=== PATIENT | female | born 1970 | race Caucasian/White ===

== ENCOUNTER → 2016-11-19 | Outpatient (CLI) | payer BC ==
--- NOTE | 2016-11-20 13:01 | EST ---
DATE OF SERVICE: 11/19/2016 AGE: 46Y SEX: F HT: 65 WT: 212 lbs. Protocol Trino: X Other: Stage: III Dur. of Exercise: 9 minutes *Heart Rate Blood Pressure *Rest: 91 Rest: 135/87 * *Max. Achieved: 147 Maximum BP: 192/85 85% PMHR: 146 100% PMHR: 172 *METS: 9.5 INDICATIONS: Chest pain. MEDICATIONS: Enalapril, atorvastatin, metformin, aspirin, Cymbalta. Patient was exercised for a total period of 9 minutes. A peak heart rate of 147 was achieved. Maximum blood pressure of 192/85 mmHg was noted. Resting EKG shows normal sinus rhythm with normal OK interval and QRS duration and normal ST-T waves. No ST segment depression suggestive of ischemia was noted. The patient did not complain of any chest pain during the test. FINAL IMPRESSION: 1. This stress test is not suggestive of ischemia. 2. Patient's exercise tolerance is normal. 3. The patient did not complain of any anginal pain during the test.
== END | disposition home or self-care (01) ==
LOC: RADNMMAIN 10:56
PROVIDERS: ATTEND Family Medicine
DX: R07.89 Other chest pain (principal)
CPT/HCPCS: 93017

== ENCOUNTER → 2018-06-28 | Outpatient (CLI) | payer BC ==
--- NOTE | 2018-06-30 08:21 | MM ---
Reason for exam: screening (asymptomatic). Last mammogram was performed 1 year ago. History: Patient had first child at age 29. Family history of breast cancer in paternal grandmother at age 70. Took hormonal contraceptives for 5 years. Physical Findings: A clinical breast exam by your physician is recommended on an annual basis and results should be correlated with mammographic findings. MG 3D Screening Mammo W/Cad Bilateral CC and MLO view(s) were taken. Prior study comparison: June 18, 2017, mammogram, performed at [facility]. February 13, 2016, mammogram, performed at [facility]. The breast tissue is heterogeneously dense. This may lower the sensitivity of mammography. Stable small group of calcifications on each site. No significant changes when compared with prior studies. ASSESSMENT: Negative, BI-RAD 1 RECOMMENDATION: Routine screening mammogram of both breasts in 1 year. Patient should continue monthly self breast exams. A negative report should not preclude additional follow up of suspicious palpable abnormalities.
== END | disposition home or self-care (01) ==
LOC: RADMAMWWP 11:49
PROVIDERS: ATTEND Family Medicine
DX: Z12.31 Encounter for screening mammogram for malignant neoplasm of breast (principal)
CPT/HCPCS: 77063; 77067

== ENCOUNTER 2018-08-10 07:32 | Day surgery (SDC) | payer BC ==
[2018-08-05 11:46] VITALS: BMI 35.9
[~2018-08-10 07:32] MED LIST: LACTATED RINGERS 1,000 ML IV SCH; LIDOCAINE 1% 20 ML VIAL (10MG/ML) FOR IV START INTRADERMA PRN
[2018-08-10 08:08] VITALS: TEMP 98
[2018-08-10 08:09] LABS: Glucose,Whole Blood 113 mg/dL (75-99)
[2018-08-10] MEDS ORDERED: LIDOCAINE 1% INJ 10MG/ML (20 ML MDV) ONE (08:43)
[2018-08-10] MEDS ORDERED: PROPOFOL 10 MG/ML 20 ML VIAL IV ONE (08:43)
--- NOTE | 2018-08-10 08:49 | P.GSHP ---
History of Present Illness H&P Date: 08/10/18 CHIEF COMPLAINT: GERD and colon screen HISTORY OF PRESENT ILLNESS: The patient is a 48-year-old female who presents with gastroesophageal reflux disease and need for colon screen. Upper and lower endoscopy were offered for further evaluation and management. PAST MEDICAL HISTORY: Please see list. PAST SURGICAL HISTORY: Please see list. MEDICATIONS: Please see list. ALLERGIES: Please see list. SOCIAL HISTORY: No illicit drug use FAMILY HISTORY: No reports of Crohn disease or ulcerative colitis. REVIEW OF ORGAN SYSTEMS: CONSTITUTIONAL: No reports of fevers or chills. GI: Denies any blood in stools or constipation. PHYSICAL EXAM: VITAL SIGNS: Stable GENERAL: Well-developed pleasant in no acute distress. HEENT: No scleral icterus. Extraocular movements grossly intact. Moist buccal mucosa. NECK: Supple without lymphadenopathy. CHEST: Unlabored respirations. Equal bilateral excursions. CARDIOVASCULAR: Regular rate and rhythm. Distal 2+ pulses. ABDOMEN: Soft, nondistended. MUSCULOSKELETAL: No clubbing, cyanosis, or edema. ASSESSMENT: 1. Gastroesophageal reflux disease 2. Colon screen. PLAN: 1. Recommend proceeding with an upper and lower endoscopy Past Medical History Past Medical History: Chest Pain / Angina, Diabetes Mellitus, GERD/Reflux, Hyperlipidemia, Hypertension Additional Past Medical History / Comment(s): TMJ, "pre-diabetes", thyroid nodule History of Any Multi-Drug Resistant Organisms: None Reported Past Surgical History: Bladder Surgery, Hysterectomy, Orthopedic Surgery, Tubal Ligation Additional Past Surgical History / Comment(s): rt. oophorectomy, ORIF rt ankle Past Anesthesia/Blood Transfusion Reactions: Previous Problems w/ Anesthesia Additional Past Anesthesia/Blood Transfusion Reaction / Comment(s): "hard time waking up" Past Psychological History: Anxiety, Depression Smoking Status: Never smoker Past Alcohol Use History: Occasional Past Drug Use History: Marijuana - Past Family History Father Family Medical History: Cancer Sister(s) Family Medical History: Cancer Mother Family Medical History: No Reported History Medications and Allergies Home Medications Medication Instructions Recorded Confirmed Type Aspirin [Adult Low Dose Aspirin EC] 81 mg PO DAILY 08/05/18 08/09/18 History Calcium/Magnesium/Zinc 1 each PO DAILY 08/05/18 08/09/18 History [Qsxbmch-Itwgjbogn-Qnoh Tablet] DULoxetine HCL [Cymbalta] 60 mg PO HS 08/05/18 08/09/18 History Enalapril [Vasotec] 20 mg PO DAILY 08/05/18 08/10/18 History Ibuprofen 600 mg PO DIRECTED PRN 08/05/18 08/09/18 History Metaxalone [Skelaxin] 800 mg PO TID PRN 08/05/18 08/09/18 History Multivitamins, Thera [Multivitamin 1 tab PO DAILY 08/05/18 08/09/18 History (formulary)] Ubidecarenone [Co Q-10] 200 mg PO QAM 08/05/18 08/09/18 History amLODIPine [Norvasc] 10 mg PO HS 08/05/18 08/09/18 History metFORMIN HCL ER [Glucophage Xr] 500 mg PO PC-SUPPER 08/05/18 08/09/18 History Allergies Allergy/AdvReac Type Severity Reaction Status Date / Time No Known Allergies Allergy Verified 08/10/18 08:07 Surgical - Exam Vital Signs Temp Pulse Resp BP Pulse Ox 98.0 F 83 16 161/98 97 08/10/18 08:07 08/10/18 08:07 08/10/18 08:07 08/10/18 08:07 08/10/18 08:07 Results - Labs Abnormal Lab Results - Last 24 Hours (Table) 08/10/18 Range/Units 08:04 POC Glucose (mg/dL) 113 H (75-99) mg/dL
--- NOTE | 2018-08-10 08:56 | P.PCN ---
Date of Procedure: 08/10/18 Description of Procedure: PREOPERATIVE DIAGNOSIS: Gastroesophageal reflux disease. POSTOPERATIVE DIAGNOSIS: Gastritis. Gastroesophageal reflux disease. Duodenitis OPERATION: Esophagogastroduodenoscopy with biopsies along antrum and duodenum SURGEON: Galina Olsen MD ANESTHESIA: MAC. INDICATIONS: The patient is a 48-year-old female who presents with a history of reflux disease. Benefits and risks of the procedure were described. Informed consent was obtained. DESCRIPTION: The patient was brought into the endoscopy suite and laid in the left lateral decubitus position. An Olympus gastroscope was passed along the posterior oropharynx down to the distal esophagus where the squamocolumnar junction was encountered at 40 cm from the incisors. The stomach was entered and no bile reflux was found. Additional findings are listed below. Biopsies with cold forceps were obtained of the antrum. The first through third portion of the duodenum was examined and remarkable for mild duodenitis. Retroflexion of the scope confirmed Hill grade 2 lower esophageal valve. The squamocolumnar junction demonstrated LA grade A erosive esophagitis. The stomach was desufflated. The patient tolerated the procedure well. FINDINGS: Squamocolumnar junction 40 cm from the incisors. Diaphragmatic hiatus at 40 cm. Hill grade 2 lower esophageal valve. LA grade B erosive esophagitis. Active duodenitis. Chronic gastritis RECOMMENDATIONS: Upper endoscopy as needed.
--- NOTE | 2018-08-10 09:05 | P.PCN ---
Date of Procedure: 08/10/18 Description of Procedure: PREOPERATIVE DIAGNOSIS: Colonoscopy screening. POSTOPERATIVE DIAGNOSIS: Colonoscopy screening. OPERATION: Colonoscopy to the ileocecal valve and appendiceal orifice. SURGEON: Galina Olsen MD. ANESTHESIA: MAC. INDICATIONS: The patient is a 48-year-old female who presents for colonoscopy screening. Benefits and risks were described and informed consent was obtained. DESCRIPTION OF PROCEDURE: The patient had undergone Gatorade, MiraLAX and Dulcolax prep. She had been brought into the operating room and laid in the left lateral decubitus position. After adequate intravenous sedation, the rectum was examined with 2% lidocaine jelly. No external hemorrhoids were encountered. The rectal tone was within normal limits. No lesions were palpated in the rectal vault. An Olympus colonoscope was advanced until the ileocecal valve and appendiceal orifice were clearly viewed. The prep was excellent with clear visualization of the mucosal folds. The scope was removed with visualization of each mucosal fold. No scattered diverticulosis was encountered. No colonic polyps were found. No evidence of focal colitis was found. Retroflexion of the scope demonstrated no internal hemorrhoids. The colon was desufflated. The patient had tolerated the procedure well. Withdrawal time was over 6 minutes. FINDINGS: No internal hemorrhoids No sigmoid diverticulosis No external prolapsed hemorrhoids. No arteriovenous malformations. No adenomatous polyps. No focal colitis. RECOMMENDATIONS: Lower endoscopy every in 10 years, 2027 Plan - Discharge Summary New Discharge Prescriptions: No Action Ubidecarenone [Co Q-10] 200 mg PO QAM Calcium/Magnesium/Zinc [Jjbddpb-Sziyhwblr-Gsbx Tablet] 1 each PO DAILY metFORMIN HCL ER [Glucophage Xr] 500 mg PO PC-SUPPER amLODIPine [Norvasc] 10 mg PO HS Multivitamins, Thera [Multivitamin (formulary)] 1 tab PO DAILY DULoxetine HCL [Cymbalta] 60 mg PO HS Enalapril [Vasotec] 20 mg PO DAILY Aspirin [Adult Low Dose Aspirin EC] 81 mg PO DAILY Ibuprofen 600 mg PO DIRECTED PRN PRN Reason: Pain Metaxalone [Skelaxin] 800 mg PO TID PRN PRN Reason: TMJ Discharge Medication List Aspirin [Adult Low Dose Aspirin EC] 81 mg PO DAILY 08/05/18 [History] Calcium/Magnesium/Zinc [Mdgehcs-Ybhmocwrt-Xcpy Tablet] 1 each PO DAILY 08/05/18 [History] DULoxetine HCL [Cymbalta] 60 mg PO HS 08/05/18 [History] Enalapril [Vasotec] 20 mg PO DAILY 08/05/18 [History] Ibuprofen 600 mg PO DIRECTED PRN 08/05/18 [History] Metaxalone [Skelaxin] 800 mg PO TID PRN 08/05/18 [History] Multivitamins, Thera [Multivitamin (formulary)] 1 tab PO DAILY 08/05/18 [History ] Ubidecarenone [Co Q-10] 200 mg PO QAM 08/05/18 [History] amLODIPine [Norvasc] 10 mg PO HS 08/05/18 [History] metFORMIN HCL ER [Glucophage Xr] 500 mg PO PC-SUPPER 08/05/18 [History] Follow up Appointment(s)/Referral(s): Galina Olsen MD [STAFF PHYSICIAN] - 08/30/18 Patient Instructions/Handouts: Duodenitis (DC) Discharge Disposition: HOME SELF-CARE
[2018-08-10 09:43] VITALS: BP 135/88; PULSE 77; RESP 15
== END 2018-08-10 10:05 | disposition home or self-care (01) ==
LOC: ORWHC2ENDO 07:32
PROVIDERS: ATTEND Surgery Plastic and Reconstructive Surgery
DX: Z12.11 Encounter for screening for malignant neoplasm of colon (principal); K29.50 Unspecified chronic gastritis without bleeding; K29.80 Duodenitis without bleeding; K22.10 Ulcer of esophagus without bleeding; K21.9 Gastro-esophageal reflux disease without esophagitis; E11.9 Type 2 diabetes mellitus without complications; Z79.84 Long term (current) use of oral hypoglycemic drugs; E78.5 Hyperlipidemia, unspecified; I10 Essential (primary) hypertension; E04.1 Nontoxic single thyroid nodule; F41.9 Anxiety disorder, unspecified; F39 Unspecified mood [affective] disorder; Z79.899 Other long term (current) drug therapy
CPT/HCPCS: 88305; 43239; J2001; J2704; G0121; 45378

== ENCOUNTER 2018-08-19 09:26 | Day surgery (SDC) | payer BC ==
[2018-08-19] MEDS ORDERED: ALPRAZolam 0.5 MG TAB PO STA (09:47)
[2018-08-19 09:56] VITALS: RESP 16; TEMP 97.7
[2018-08-19 10:54] VITALS: BP 140/87; PULSE 78
--- NOTE | 2018-08-19 12:58 | US ---
EXAMINATION TYPE: US FNA thyroid DATE OF EXAM: 08/19/2018 COMPARISON: NONE HISTORY: Thyroid nodule, E04.1 Maximal barrier technique was utilized. Ultrasound using sterile technique. The skin overlying the no dule was localized with ultrasound and the overlying skin prepped and draped. Lidocaine used for loca l anesthesia. 4 passes with a 25-gauge needle were made into the left lobe thyroid nodule under ultra sound guidance. Aspirate specimen submitted to cytology. Following the procedure hemostasis achieved. No immediate complication. Clear fluid was aspirated from the focus. IMPRESSION: Status post ultrasound-guided fine-needle aspiration of thyroid nodule, pathology pending .
== END 2018-08-19 11:00 | disposition home or self-care (01) ==
LOC: RADPROMAIN 09:26
PROVIDERS: ATTEND Surgery Plastic and Reconstructive Surgery
DX: E04.1 Nontoxic single thyroid nodule (principal)
CPT/HCPCS: 10022; 76942; 88173; 88305

== ENCOUNTER 2018-11-30 10:51 | Observation (INO) | payer BC ==
[2018-11-30] MEDS ORDERED: hydrALAZINE HCL 20 MG/ML 1 ML VIAL IVP STA ×2 (11:28→14:36)
[2018-11-30] MEDS ORDERED: SODIUM CHLORIDE 0.9% 1,000 ML IV STA ×2 (11:28)
[2018-11-30] MEDS ORDERED: ASPIRIN 81 MG PO STA (11:28)
[2018-11-30] MEDS ORDERED: KETOROLAC 30 MG/ML 1 ML VIAL IVP STA (11:29)
--- NOTE | 2018-11-30 11:50 | ED ---
Chest Pain HPI <Benjamin Mcadams - Last Filed: 11/30/18 14:16> - General Source: patient, RN notes reviewed, old records reviewed Mode of arrival: ambulatory Limitations: no limitations <Haleigh Calhoun - Last Filed: 11/30/18 14:38> - General Chief Complaint: Chest Pain Stated Complaint: Headache, chest pain Time Seen by Provider: 11/30/18 11:09 - History of Present Illness Initial Comments: Patient is a 48-year-old female presents emergency department today with complaints of chest pain for the past day. Patient states she's also has a headache complaining of sinus pressure. She's had intermittent chills. Patient states she's been having symptoms for the past 2 days. Patient states that she has the chest pain radiating towards her back. She denies any nausea or vomiting. has history of hypertension, hyperlipidemia and prediabetes (Haleigh Calhoun) - Related Data Home Medications Medication Instructions Recorded Confirmed Aspirin [Adult Low Dose Aspirin EC] 81 mg PO DAILY 08/05/18 11/30/18 Calcium/Magnesium/Zinc 1 each PO DAILY 08/05/18 11/30/18 [Tpamygr-Zpnvhnoxi-Eqan Tablet] Enalapril [Vasotec] 20 mg PO DAILY 08/05/18 11/30/18 Multivitamins, Thera [Multivitamin 1 tab PO DAILY 08/05/18 11/30/18 (formulary)] Ubidecarenone [Co Q-10] 200 mg PO QAM 08/05/18 11/30/18 amLODIPine [Norvasc] 10 mg PO HS 08/05/18 11/30/18 metFORMIN HCL ER [Glucophage Xr] 500 mg PO PC-SUPPER 08/05/18 11/30/18 Cholecalciferol (Vitamin D3) 2,000 unit PO DAILY 11/30/18 11/30/18 [Vitamin D3] [place]-3 Fatty Acids/Fish Oil [Fish 1 cap PO DAILY 11/30/18 11/30/18 Oil 1,000 mg Softgel] buPROPion HCL [Wellbutrin SR] 150 mg PO BID 11/30/18 11/30/18 Allergies Allergy/AdvReac Type Severity Reaction Status Date / Time No Known Allergies Allergy Verified 11/30/18 11:06 Review of Systems ROS Other: All systems not noted in ROS Statement are negative. <Bnejamin Mcadams - Last Filed: 11/30/18 14:16> ROS Other: All systems not noted in ROS Statement are negative. <Haleigh Calhoun - Last Filed: 11/30/18 14:38> ROS Statement: Those systems with pertinent positive or pertinent negative responses have been documented in the HPI. EKG Findings - EKG Comments: EKG Findings:: EKG shows sinus rhythm with cannot rule anterior infarct age undetermined. Ventricular 99 bpm. NH intervals 160 ms. QS duration 96 most seconds. QT QTc is 350/449 ms. <Haleigh Calhoun - Last Filed: 11/30/18 14:38> Past Medical History Past Medical History: Chest Pain / Angina, Diabetes Mellitus, GERD/Reflux, Hyperlipidemia, Hypertension Additional Past Medical History / Comment(s): TMJ, "pre-diabetes", thyroid nodule History of Any Multi-Drug Resistant Organisms: None Reported Past Surgical History: Bladder Surgery, Hysterectomy, Orthopedic Surgery, Tubal Ligation Additional Past Surgical History / Comment(s): rt. oophorectomy, ORIF rt ankle Past Anesthesia/Blood Transfusion Reactions: Previous Problems w/ Anesthesia Additional Past Anesthesia/Blood Transfusion Reaction / Comment(s): "hard time waking up" Past Psychological History: Anxiety, Depression Smoking Status: Never smoker Past Alcohol Use History: Occasional Past Drug Use History: Marijuana - Past Family History Father Family Medical History: Cancer Sister(s) Family Medical History: Cancer Mother Family Medical History: No Reported History <Haleigh Calhoun - Last Filed: 11/30/18 14:38> General Exam Limitations: no limitations <Haleigh Calhoun - Last Filed: 11/30/18 14:38> Course <Benjamin Mcadams - Last Filed: 11/30/18 14:16> <Haleigh Calhoun - Last Filed: 11/30/18 14:38> Vital Signs 11/30/18 11/30/18 11/30/18 10:54 11:43 12:00 Temperature 97.8 F Pulse Rate 115 H 101 H 101 H Respiratory 18 22 16 Rate Blood Pressure 195/99 163/111 163/111 O2 Sat by Pulse 99 99 99 Oximetry 11/30/18 11/30/18 11/30/18 12:30 13:00 13:23 Temperature Pulse Rate 103 H 96 102 H Respiratory 22 15 20 Rate Blood Pressure 163/111 167/112 171/107 O2 Sat by Pulse 96 94 L Oximetry 11/30/18 11/30/18 11/30/18 13:29 13:30 13:57 Temperature Pulse Rate 96 97 102 H Respiratory 16 21 18 Rate Blood Pressure 160/109 160/109 165/95 O2 Sat by Pulse 93 L 97 Oximetry - Reevaluation(s) Reevaluation #1: 11/30/18 14:16 Chart and results reviewed. Case discussed with Dr. Arguello, who will admit covering for Dr. Tidwell. (Benjamin Mcadams) Chest Pain [facility] <Benjamin Mcadams - Last Filed: 11/30/18 14:16> <Haleigh Calhoun - Last Filed: 11/30/18 14:38> - [facility] Patient is a 48-year-old female presents emergency room today with chest pain for the past day related towards her back shows a complains of some sinus pressure. Patient reports she has had some dyspnea. Patient is history of hypertension diabetes. This time patient's EKG shows no acute ST changes. Troponin is negative. Her chest pain started a few hours prior to arrival. Chest x-ray shows Possible early left basilar acute infiltrate or atelectasis. Correlate clinically. Patient will be given one dose of her eyes and for sinusitis and to cover for early infiltrate. Patient has had no fever in the emergency department denies any significant coughing. Patient will be admitted at this time with consult to cardiology. Her blood pressure was also elevated upon arrival 195/110. She is given 10 mg of hydralazine. Last pulse pressure was 160/90. (Haleigh Calhoun) Disposition <Benjamin Mcadams - Last Filed: 11/30/18 14:16> Is patient prescribed a controlled substance at d/c from ED?: No Time of Disposition: 14:38 <Haleigh Calhoun - Last Filed: 11/30/18 14:38> Clinical Impression: Chest pain, Sinusitis Disposition: ADMITTED IP TO THIS HOSP Condition: Stable Referrals: Shay Tidwell DO [Primary Care Provider] - 1-2 days
[2018-11-30 12:51] LABS: Basophils # (A) 0.1 k/uL (0-0.2); Basophils % (A) 1 %; Eosinophils # (A) 0.3 k/uL (0-0.7); Eosinophils % (A) 4 %; HCT 39.8 % (34.0-46.0); HGB 13.8 gm/dL (11.4-16.0); Lymphocytes # (A) 1.3 k/uL (1.0-4.8); Lymphocytes % (A) 20 %; MCH 30.7 pg (25.0-35.0); MCHC 34.6 g/dL (31.0-37.0); MCV 88.6 fL (80.0-100.0); Mean Platelet Volume 6.8; Monocytes # (A) 0.4 k/uL (0-1.0); Monocytes % (A) 5 %; Neutrophils # (A) 4.5 k/uL (1.3-7.7); Neutrophils % (A) 68 %; Platelet Count 342 k/uL (150-450); RDW 13.7 % (11.5-15.5); WBC 6.6 k/uL (3.8-10.6)
[2018-11-30 12:55] LABS: INR 0.9 (<1.2); Partial Thromboplastin Time 24.8 sec (22.0-30.0); Prothrombin Time 9.6 sec (9.0-12.0)
[2018-11-30 13:08] LABS: ALT 35 U/L (9-52); AST 22 U/L (14-36); Albumin 4.7 g/dL (3.5-5.0); Alkaline Phosphatase 77 U/L (38-126); Amylase 47 U/L (30-110); Anion Gap 11 mmol/L; Blood Urea Nitrogen 11 mg/dL (7-17); Calcium 10.7 mg/dL (8.4-10.2); Carbon Dioxide 22 mmol/L (22-30); Chloride 104 mmol/L (98-107); Glucose 120 mg/dL (74-99); Lipase 21 U/L (23-300); Magnesium 1.9 mg/dL (1.6-2.3); Sodium 137 mmol/L (137-145); Total Bilirubin 0.8 mg/dL (0.2-1.3); Total Protein 8.4 g/dL (6.3-8.2)
[2018-11-30 13:12] LABS: Appearance,Urine Clear (Clear); Color,Urine Yellow; Specific Gravity,Urine 1.005 (1.001-1.035)
[2018-11-30 13:13] LABS: Glucose,Urine (UA) Negative (Negative); Protein,Urine 1+ (Negative)
[2018-11-30 13:14] LABS: Bilirubin,Urine Negative (Negative); Blood,Urine Negative (Negative); Ketones,Urine Negative (Negative); Urobilinogen,Urine <2.0 mg/dL (<2.0)
[2018-11-30 13:15] LABS: Leukocyte Esterase,Urine Negative (Negative); Nitrite,Urine Negative (Negative)
--- NOTE | 2018-11-30 13:58 | XR ---
EXAMINATION TYPE: XR chest 2V DATE OF EXAM: 11/30/2018 COMPARISON: NONE HISTORY: Chest pain. TECHNIQUE: Frontal and lateral views of the chest are obtained. FINDINGS: There is patchy left basilar opacity confirmed on 2 views. Right lung is clear. No pleural effusion or pneumothorax is evident bilaterally. The cardiac silhouette size is within normal limits . Overlying EKG leads are seen. Mild multilevel spurring in thoracic spine is present. IMPRESSION: Possible early left basilar acute infiltrate and/or atelectasis. Correlate clinically.
[2018-11-30] MEDS ORDERED: AZITHROMYCIN 500 MG TAB PO STA (14:17)
[2018-11-30] MEDS ORDERED: IBUPROFEN 400 MG TAB PO STA (17:08)
[2018-11-30] MEDS ORDERED: ACETAMINOPHEN TAB 500 MG TAB PO STA (17:08)
[2018-11-30] MEDS: NITROGLYCERIN SL TABS 0.4 MG TAB SUBLINGUAL PRN ×3 (18:45→18:56)
[2018-11-30] MEDS ORDERED: ACETAMINOPHEN TAB 325 MG TAB PO PRN (21:56)
[2018-11-30 22:07] LABS: Glucose,Whole Blood 163 mg/dL (75-99)
[2018-11-30] MEDS ORDERED: MAGNESIUM HYDROXIDE 2,400 MG/10 ML CUP PO PRN (22:10)
[2018-11-30] MEDS ORDERED: ONDANSETRON 4 MG/2 ML VIAL IVP PRN (22:10)
[2018-11-30] MEDS ORDERED: CALCIUM CARBONATE 500 MG CHEWABLE PO PRN (22:10)
[2018-11-30] MEDS ORDERED: LACTULOSE 20 GM/30 ML CUP PO PRN (22:10)
[2018-11-30] MEDS ORDERED: NALOXONE 0.4 MG/ML 1 ML VIAL IV PRN (22:10)
[2018-11-30] MEDS ORDERED: MELATONIN 3 MG TABLET PO PRN (22:10)
[2018-11-30] MEDS ORDERED: ACETAMINOPHEN TAB 500 MG TAB PO PRN (22:18)
--- NOTE | 2018-11-30 22:46 | HP ---
HISTORY AND PHYSICAL DATE OF ADMISSION: 11/30/2018. DATE OF SERVICE: 11/30/2018. PRESENTING COMPLAINT: Unwell. HISTORY OF PRESENTING COMPLAINT: Pleasant 48-year-old patient of Dr. Tidwell, for about 4 days has not been feeling well. [place] congested, fullness in the head. Feels a heaviness in the chest. No short of breath, dizzy, lightheaded. [place] hot and cold. Slight cough, feeling tired, run down yesterday, aching all over with multitude of symptoms. Also with chest heaviness. No radiation to the neck or arm. The patient's chronic stable medical conditions include diabetes, GERD, hypertension, hyperlipidemia, etc. The patient just got admitted to the hospital. REVIEW OF SYSTEMS: CONSTITUTIONAL: Weak, tired, run down. HEENT: As above. RESPIRATORY: As above. GASTROINTESTINAL: Heartburn. CARDIOVASCULAR: As above. GENITOURINARY: None. MUSCULOSKELETAL: Aches and pains in the joints. DERMATOLOGICAL, HEMATOLOGIC, LYMPHATICS: None. PSYCHIATRY: None. NEUROLOGIC: None. PAST MEDICAL HISTORY: Diabetes, GERD, hyperlipidemia, hypertension, thyroid disorder, TMJ, bilateral peripheral neuropathy, thyroid nodule, sinus infection. PAST SURGICAL HISTORY: Bladder surgery, hysterectomy, orthopedic surgery, tubal ligation, right oophorectomy, bladder suspension, ORIF right ankle, EGD with biopsy. PSYCH HISTORY: Anxiety and depression. SOCIAL HISTORY: with 2 children. No smoking. Alcohol occasionally. FAMILY HISTORY: Father had lung cancer. HOME MEDICATIONS: 1. Wellbutrin SR 150 mg p.o. b.i.d. 2. Fish oil 1 capsule p.o. daily. 3. Vitamin D3, 2000 units p.o. daily. 4. Glucophage XR 500 mg with supper. 5. Norvasc 10 mg p.o. at bedtime. 6. CO Q10, 200 mg p.o. daily. 7. Multivitamin 1 tablet p.o. daily. 8. Vasotec 20 mg p.o. daily. 9. Calcium supplement. 10.Aspirin 81 mg a day. ALLERGIES: None. PHYSICAL EXAMINATION: VITAL SIGNS: Vital signs on presentation, temperature 97.8, pulse 115, respiratory rate 18, blood pressure 195/99, pulse 99% on room air. Repeat blood pressure down 130/85. GENERAL APPEARANCE: Well built. BMI 35.8. Sitting up, tired-appearing. EYES: Pupils are equal. Conjunctivae normal. HEENT: External ears and nose normal. Oral cavity normal. NECK: JVD not raised. Mass not palpable. Respiratory effort normal. LUNGS: Slightly decreased breath sounds. CARDIOVASCULAR: 1st and 2nd heart sounds. No edema. ABDOMEN: Soft, nontender. Liver and spleen not palpable. LYMPHATIC: No lymph nodes palpable in the neck or axillae. PSYCHIATRY: Alert and oriented x3. Mood and affect normal. NEUROLOGIC: Pupils equal. Cranial nerves grossly intact. Power and sensation grossly intact. INVESTIGATIONS: White count 6.6, hemoglobin 13.8, potassium 4.0. BUN and creatinine normal. Troponin x2 negative. EKG tracing personally reviewed by me shows normal sinus rhythm. Chest x-ray film personally reviewed by me shows possible infiltrate. ASSESSMENT: 1. This patient presents with a multitude of symptoms, headache, fullness in the head, achiness, feeling hot and cold, some chest infiltrate, short of breath, slight cough. The patient looks to have a upper respiratory tract viral sinusitis with viral pneumonitis. 2. Chest pain. Acute risk factors. Need to rule out a cardiac cause though seems unlikely. 3. Diabetes mellitus type 2 on oral hypoglycemics. 4. Gastroesophageal reflux disease. 5. Hyperlipidemia. 6. Essential hypertension. 7. Diabetic peripheral neuropathy. 8. Obesity, 35.8. PLAN: Will start the patient on Claritin-D for decongestant. Use Tylenol. Home medications resumed. Accu-Cheks will be followed. Lovenox for DVT prophylaxis. We will get a cardiology opinion, though doubt this to be a cardiac event. Care was discussed with the patient. Questions were answered. MMODL / IJN: [id number] /
[2018-11-30 22:53] LABS: Cholesterol 321 mg/dL (<200); HDL Cholesterol 60 mg/dL (40-60); LDL Cholesterol,Calculated 228 mg/dL (0-99); Triglycerides 165 mg/dL (<150)
[2018-11-30] MEDS: NAPROXEN 250 MG TAB PO SCH (23:13)
[2018-11-30] MEDS: LORATADINE-PSEUDOEPH 5-120 MG 1 EACH TAB.ER.12H PO SCH (23:14)
[2018-11-30] MEDS: buPROPion SR 150 MG TABLET.ER PO SCH (23:14)
[2018-11-30] MEDS: amLODIPine 10 MG TAB PO SCH (23:14)
[2018-12-01] MEDS ORDERED: ACETAMINOPHEN TAB 500 MG TAB PO SCH
[2018-12-01 06:07] LABS: Glucose,Whole Blood 123 mg/dL (75-99)
[2018-12-01] MEDS: INSULIN ASPART (NovoLOG) 100 UNIT/ML VIAL SQ SCH ×4 (06:08→20:47)
--- NOTE | 2018-12-01 08:11 | P.CRDCN ---
History of Present Illness Consult date: 12/01/18 Requesting physician: Hunter Arguello Consult reason: chest pain Chief complaint: Chest pain History of present illness: This is a 48-year-old female with history of hypertension, hyperlip idemia, borderline diabetes, family history of premature coronary artery disease, nonsmoker, history of thyroid nodule, who presents to the hospital with symptoms of chest pressure and heaviness which started the night before last, she states it felt like an elephant was sitting on her chest. She did have some associated shortness of breath and diaphoresis with this. Patient also states that she's had a headache over the past few days and is felt or tired than usual. Patient did undergo a regular stress test in 2017 which was negative. EKG on arrival here showed a normal sinus rhythm with no acute changes. Chest x-ray showed possible early left basilar acute infiltrate and/or atelectasis. Blood pressure on arrival here 152/90 with a heart rate of 110, 96% on room air. I pressure this morning 134/94 with a heart rate in the 80s 96% on 2 L. CBC is normal, d-dimer negative, sodium 137, potassium 4.0, BUN 11 and creatinine 0.6. Troponins are negative 3. Cholesterol 321, LDL 228, HDL 60, triglycerides 175. Influenza A and B are negative. According to the patient, she had been on atorvastatin in the past states that she got muscle aching. We will start her on Lipitor 80 here and on discharge we recommend to start Crestor 40, we will also start the patient on Zetia. At the time of my examination this morning patient is currently chest pain-free. Past Medical History Past Medical History: Chest Pain / Angina, Diabetes Mellitus, GERD/Reflux, Hyperlipidemia, Hypertension, Thyroid Disorder Additional Past Medical History / Comment(s): NIDDM -pt states she is "pre" diabetic, TMJ, neuropathy bilateral feet and occasioanly hands, thyroid nodule, current sinus infection. History of Any Multi-Drug Resistant Organisms: None Reported Past Surgical History: Bladder Surgery, Hysterectomy, Orthopedic Surgery, Tubal Ligation Additional Past Surgical History / Comment(s): R oophorectomy, bladder suspension, ORIF R ankle, EGD with bx and colonoscopy. Past Anesthesia/Blood Transfusion Reactions: Previous Problems w/ Anesthesia Additional Past Anesthesia/Blood Transfusion Reaction / Comment(s): "hard time waking up". Pt received blood with hysterectomy. Past Psychological History: Anxiety, Depression Additional Psychological History / Comment(s): Pt resides with her spouse and their 15 yr old and 18 yr old children. She is independent. Smoking Status: Never smoker Past Alcohol Use History: Occasional Past Drug Use History: Marijuana Additional Drug Use History / Comment(s): Pt states in the past she occasionally smoked marijuana but none for a long time. - Past Family History Father Family Medical History: Cancer Additional Family Medical History / Comment(s): Father had lung cancer. He is 78yrs old. Sister(s) Family Medical History: Cancer Mother Family Medical History: COPD Additional Family Medical History / Comment(s): Mother of COPD at the age of 61 yrs. She was a smoker Medications and Allergies Home Medications Medication Instructions Recorded Confirmed Type Aspirin [Adult Low Dose Aspirin EC] 81 mg PO DAILY 08/05/18 11/30/18 History Calcium/Magnesium/Zinc 1 each PO DAILY 08/05/18 11/30/18 History [Ubnmpwl-Qyycqpfmo-Pluo Tablet] Enalapril [Vasotec] 20 mg PO DAILY 08/05/18 11/30/18 History Multivitamins, Thera [Multivitamin 1 tab PO DAILY 08/05/18 11/30/18 History (formulary)] Ubidecarenone [Co Q-10] 200 mg PO QAM 08/05/18 11/30/18 History amLODIPine [Norvasc] 10 mg PO HS 08/05/18 11/30/18 History metFORMIN HCL ER [Glucophage Xr] 500 mg PO PC-SUPPER 08/05/18 11/30/18 History Cholecalciferol (Vitamin D3) 2,000 unit PO DAILY 11/30/18 11/30/18 History [Vitamin D3] [place]-3 Fatty Acids/Fish Oil [Fish 1 cap PO DAILY 11/30/18 11/30/18 History Oil 1,000 mg Softgel] buPROPion HCL [Wellbutrin SR] 150 mg PO BID 11/30/18 11/30/18 History Allergies Allergy/AdvReac Type Severity Reaction Status Date / Time No Known Allergies Allergy Verified 11/30/18 11:06 Physical Exam Vitals: Vital Signs Temp Pulse Pulse Resp BP BP Pulse Ox 12/01/18 07:42 97.8 F 88 16 135/94 96 03/07/19 04:00 97.4 F L 96 18 141/91 97 12/01/18 00:00 97.6 F 99 18 154/89 99 11/30/18 20:00 97.9 F 99 18 142/84 96 11/30/18 19:00 112 H 18 130/83 96 11/30/18 18:50 106 H 18 130/85 95 11/30/18 18:49 107 H 18 132/81 98 11/30/18 18:45 97 16 141/86 97 11/30/18 18:16 98.7 F 78 18 167/89 95 11/30/18 17:39 97.8 F 111 H 13 152/93 96 11/30/18 17:28 111 H 13 152/93 96 11/30/18 17:10 111 H 13 152/93 96 11/30/18 17:09 111 H 16 152/93 95 11/30/18 17:08 105 H 20 94 L 11/30/18 16:00 108 H 24 168/100 96 11/30/18 15:30 101 H 18 161/101 95 11/30/18 15:00 165/103 11/30/18 14:30 98 13 174/104 96 11/30/18 14:00 101 H 14 162/95 93 L 11/30/18 13:57 102 H 18 165/95 97 11/30/18 13:30 97 21 160/109 93 L 11/30/18 13:29 96 16 160/109 11/30/18 13:23 102 H 20 171/107 94 L 11/30/18 13:00 96 15 167/112 96 11/30/18 12:30 103 H 22 163/111 11/30/18 12:00 101 H 16 163/111 99 11/30/18 11:43 101 H 22 163/111 99 11/30/18 10:54 97.8 F 115 H 18 195/99 99 Intake and Output 11/30/18 12/01/18 12/01/18 22:59 06:59 14:59 Intake Total 940 Balance 940 Intake: Amount of Fluid Infused ( 700 ml) Oral 240 Other: Voiding Method Toilet Toilet # Voids 1 1 Weight 96.5 kg PHYSICAL EXAMINATION: GENERAL: 48-year-old female in no acute distress at the time of my examination HEENT: Head is atraumatic, normocephalic. Pupils equal, round. Sclera anicteric. Conjunctiva are clear. Mucous membranes of the mouth are moist. Neck is supple. There is no elevated jugular venous pressure. No carotid bruit is heard. HEART EXAMINATION: Heart S1, S2 normal. No murmur or gallop heard. CHEST EXAMINATION: Lungs are clear to auscultation and precussion. No chest wall tenderness is noted on palpation or with deep breathing. ABDOMEN: Soft, nontender. Bowel sounds are heard. No organomegaly noted. EXTREMITIES: 2+ peripheral pulses with no evidence of peripheral edema and no calf tenderness noted. NEUROLOGIC patient is awake, alert and oriented 3 . . Results 11/30/18 12:25 11/30/18 12:25 Cardiac Enzymes 11/30/18 11/30/18 11/30/18 Range/Units 12:25 12:25 17:55 AST 22 (14-36) U/L Troponin I <0.012 <0.012 (0.000-0.034) ng/mL 12/01/18 Range/Units 00:07 AST (14-36) U/L Troponin I <0.012 (0.000-0.034) ng/mL Coagulation 11/30/18 Range/Units 12:25 PT 9.6 (9.0-12.0) sec APTT 24.8 (22.0-30.0) sec Lipids 11/30/18 Range/Units 12:25 Triglycerides 165 H (<150) mg/dL Cholesterol 321 H (<200) mg/dL HDL Cholesterol 60 (40-60) mg/dL CBC 11/30/18 Range/Units 12:25 WBC 6.6 (3.8-10.6) k/uL RBC 4.50 (3.80-5.40) m/uL Hgb 13.8 (11.4-16.0) gm/dL Hct 39.8 (34.0-46.0) % Plt Count 342 (150-450) k/uL Comprehensive Metabolic Panel 11/30/18 Range/Units 12:25 Sodium 137 (137-145) mmol/L Potassium 4.0 (3.5-5.1) mmol/L Chloride 104 (98-107) mmol/L Carbon Dioxide 22 (22-30) mmol/L BUN 11 (7-17) mg/dL Creatinine 0.66 (0.52-1.04) mg/dL Glucose 120 H (74-99) mg/dL Calcium 10.7 H (8.4-10.2) mg/dL AST 22 (14-36) U/L ALT 35 (9-52) U/L Alkaline Phosphatase 77 (38-126) U/L Total Protein 8.4 H (6.3-8.2) g/dL Albumin 4.7 (3.5-5.0) g/dL Current Medications Generic Name Dose Route Start Last Admin Trade Name Freq PRN Reason Stop Dose Admin Acetaminophen 500 mg 11/30/18 22:18 Tylenol Tab PO Q6HR PRN Mild Pain Alprazolam 0.25 mg 11/30/18 22:10 Xanax PO Q6HR PRN Anxiety Amlodipine Besylate 10 mg 11/30/18 22:00 11/30/18 23:14 Norvasc PO 10 mg HS [facility] Administration Aspirin 81 mg 12/01/18 09:00 Aspirin PO DAILY [facility] Atorvastatin Calcium 80 mg 12/01/18 21:00 Lipitor PO HS [facility] Bupropion HCl 150 mg 11/30/18 22:00 11/30/18 23:14 Wellbutrin Sr PO 150 mg BID [facility] Administration Calcium Carbonate/Glycine 1,000 mg 11/30/18 22:10 Tums PO Q4HR PRN Dyspepsia Insulin Aspart 0 unit 12/01/18 07:30 12/01/18 06:08 Novolog SQ Not Given ACHS [facility] Protocol Lactulose 20 gm 11/30/18 22:10 Cephulac PO DAILY PRN Constipation Lisinopril 20 mg 12/01/18 09:00 Zestril PO DAILY [facility] Loratadine/Pseudoephedrine Sulfate 1 each 11/30/18 22:15 11/30/18 23:14 Claritin-D 12 Hr PO 1 each Q12HR [facility] Administration Magnesium Hydroxide 2,400 mg 11/30/18 22:10 Milk Of Magnesia PO DAILY PRN Constipation Melatonin 3 mg 11/30/18 22:10 Melatonin PO HS PRN Insomnia Metformin HCl 250 mg 12/01/18 08:30 Glucophage PO PC-BID [facility] Multivitamins 1 each 12/01/18 12:00 Theragran PO DAILY@1200 MARGARITA Naloxone HCl 0.2 mg 11/30/18 22:10 Narcan IV Q2M PRN Opioid Reversal Naproxen 250 mg 11/30/18 22:15 11/30/18 23:13 Naprosyn PO 250 mg TID MARGARITA Administration Nitroglycerin 0.4 mg 11/30/18 14:38 11/30/18 18:56 Nitrostat SUBLINGUAL 0.4 mg Q5M PRN Administration Chest Pain Ondansetron HCl 4 mg 11/30/18 22:10 Zofran IVP Q8HR PRN Nausea And Vomiting Intake and Output 11/30/18 12/01/18 12/01/18 22:59 06:59 14:59 Intake Total 940 Balance 940 Intake: Amount of Fluid Infused ( 700 ml) Oral 240 Other: Voiding Method Toilet Toilet # Voids 1 1 Weight 96.5 kg 11/30/18 12:25 11/30/18 12:25 EKG Interpretations (text) EKG shows normal sinus rhythm with no acute changes. Assessment and Plan Plan: Assessment and plan #1 midsternal chest pressure and heaviness with associated shortness of breath and mild diaphoresis, troponins are negative 3. EKG shows normal sinus rhythm with no acute changes. Patient had a regular stress test in 2017 which was negative for any reversible ischemia. #2 hypertension #3 hyperlipidemia, untreated #4 borderline diabetes #5 family history of premature coronary artery disease in her father who had a myocardial infarction in his early 60s #6 thyroid nodule Plan We will obtain an echocardiogram with Doppler study. We will start the patient here on Lipitor 80, she did have some muscle aching with Lipitor in the past, on discharge we recommend to start the patient on Crestor 40 mg. We will also start the patient on Zetia 10 mg daily from today. We will recommend patient undergo further evaluation to rule out underlying coronary artery disease. Patient was given the option of proceeding with cardiac catheterization or stress testing, she opted at this time to go for a stress test. She will be scheduled today to undergo a Lexiscan. Further recommendations to follow. DNP note has been reviewed, I agree with a documented findings and plan of care. Patient was seen and examined.
[2018-12-01] MEDS: ASPIRIN 81 MG PO SCH (08:17)
[2018-12-01] MEDS: LORATADINE-PSEUDOEPH 5-120 MG 1 EACH TAB.ER.12H PO SCH ×2 (08:18→20:51)
[2018-12-01] MEDS: buPROPion SR 150 MG TABLET.ER PO SCH ×2 (08:18→20:51)
[2018-12-01] MEDS: NAPROXEN 250 MG TAB PO SCH ×3 (08:18→20:51)
[2018-12-01] MEDS: MULTIVITAMINS, THERA 1 EACH TAB PO SCH (08:18)
[2018-12-01] MEDS: LISINOPRIL 20 MG TAB PO SCH (08:18)
[2018-12-01] MEDS ORDERED: ASPIRIN 325 MG TAB PO SCH (09:00)
[2018-12-01] MEDS: EZETIMIBE 10 MG TAB PO SCH (09:11)
[2018-12-01] MEDS ORDERED: CAFFEINE CITRATE 60 MG/3 ML VIAL IV PRN (09:14)
[2018-12-01] MEDS ORDERED: REGADENOSON 0.4 MG/5 ML SYRINGE IV ONE (09:14)
[2018-12-01 11:17] LABS: Glucose,Whole Blood 105 mg/dL (75-99)
[2018-12-01 12:20] LABS: Hyaline Casts,Urine 4 /lpf (0-2); Mucus,Urine Rare /hpf; RBC,Urine 1 /hpf (0-5); Squamous Epithelial Cell,Urine 5 /hpf (0-4); WBC,Urine <1 /hpf (0-5)
[2018-12-01] MEDS: metFORMIN 500 MG TAB PO SCH ×2 (12:27→20:03)
--- NOTE | 2018-12-01 14:21 | ECHOF ---
Referral Reason:chest pain MEASUREMENTS -------- HEIGHT: 165.1 cm WEIGHT: 96.2 kg BP: 135/94 RVIDd: 3.2 cm (< 3.3) IVSd: 1.3 cm (0.6 - 1.1) LVIDd: 4.0 cm (3.9 - 5.3) LVPWd: 1.3 cm (0.6 - 1.1) IVSs: 1.7 cm LVIDs: 3.2 cm LVPWs: 1.8 cm LAESV Index (A-L): 22.22 ml/m Ao Diam: 2.9 cm (2.0 - 3.7) AV Cusp: 1.9 cm (1.5 - 2.6) LA Diam: 3.8 cm (2.7 - 3.8) MV EXCURSION: 18.742 mm (> 18.000) MV EF SLOPE: 94 mm/s (70 - 150) EPSS: 0.6 cm MV E Orlin: 0.63 m/s MV DecT: 214 ms MV A Orlin: 0.97 m/s MV E/A Ratio: 0.66 RAP: 5.00 mmHg RVSP: 20.98 mmHg FINDINGS -------- Sinus rhythm. This was a technically adequate study. The left ventricular size is normal. There is mild concentric left ventricular hypertrophy. Overa ll left ventricular systolic function is normal with, an EF between 55 - 60 %. The right ventricle is normal in size. The left atrial size is normal. The right atrial size is normal. The aortic valve is trileaflet, and appears structurally normal. No aortic stenosis or regurgitation. Mild mitral regurgitation is present. Mild tricuspid regurgitation present. There is no evidence of pulmonary hypertension. The right v entricular systolic pressure, as measured by Doppler, is 20.98mmHg. There is no pulmonic regurgitation present. The aortic root size is normal. Echo free space represents a pericardial fat pad. CONCLUSIONS -------- 1. The left ventricular size is normal. 2. There is mild concentric left ventricular hypertrophy. 3. Overall left ventricular systolic function is normal with, an EF between 55 - 60 %. 4. The right ventricle is normal in size. 5. The left atrial size is normal. 6. The right atrial size is normal. 7. The aortic valve is trileaflet, and appears structurally normal. No aortic stenosis or regurgitati on. 8. Mild mitral regurgitation is present. 9. Mild tricuspid regurgitation present. 10. There is no evidence of pulmonary hypertension. 11. The right ventricular systolic pressure, as measured by Doppler, is 20.98mmHg. 12. There is no pulmonic regurgitation present. 13. The aortic root size is normal. 14. Echo free space represents a pericardial fat pad. PRESCHOOL TEACHER'S ASSISTANT: Daysi Fonseca RDCS
--- NOTE | 2018-12-01 15:32 | NM ---
EXAMINATION TYPE: NM stress lexiscan cardiolite DATE OF EXAM: 12/01/2018 COMPARISON: NONE HISTORY: Chest pain TECHNIQUE: After the intravenous administration of 9.8 mCi Tc 99m Sestamibi - Cardiolite resting SPE CT images acquired 45 minutes post injection. The patient received 0.4mg Lexiscan, 24.4 mCi Tc 99m Sestamibi - Stress images obtained [address] injection FINDINGS: Review of stress and rest SPECT images demonstrates tiny perfusion defect involving the apex which ma y be artifactual. Appears to be good wall motion in the region.. Gated analysis shows normal wall mo tion with an estimated left ventricular ejection fraction of 64 %. IMPRESSION: 1. Tiny area of stress-induced reversibility in the apex myocardium may be artifactual correlate clin ically.
[2018-12-01 16:19] LABS: Glucose,Whole Blood 163 mg/dL (75-99)
[2018-12-01 20:26] LABS: Glucose,Whole Blood 131 mg/dL (75-99)
[2018-12-01] MEDS: amLODIPine 10 MG TAB PO SCH (20:51)
[2018-12-01] MEDS ORDERED: ATORVASTATIN 80 MG TAB PO SCH (21:00)
--- NOTE | 2018-12-01 22:08 | PN ---
PROGRESS NOTE DATE OF SERVICE: 12/01/2018 PRESENTING COMPLAINT: Tired. INTERVAL HISTORY: Patient presented with multitude of symptoms, felt to be more of a viral syndrome. Also had some chest pain, for which I saw the patient. Patient is pending a stress test this morning. Overall feels a bit better. REVIEW OF SYSTEMS: Done for constitutional, cardiovascular, GI, pulmonary; relevant findings as above. CURRENT MEDICATIONS: Reviewed. PHYSICAL EXAMINATION: VITAL SIGNS: Temperature 98.1, pulse 96, respiration 16, blood pressure 142/81, pulse ox 98% on 2 L. GENERAL APPEARANCE: Sitting up, awake. EYES: Pupils equal. Conjunctivae normal. NECK: JVD not raised. Mass not palpable. RESPIRATORY: Effort normal. LUNGS: Slightly decreased breath sounds. CARDIOVASCULAR: First and second sounds normal. No edema. ABDOMEN: Soft, non-tender. Liver and spleen not palpable. PSYCHIATRY: Alert and oriented x3. Mood and affect normal. INVESTIGATIONS: Accu-Cheks are noted. Troponins were negative. LDL is 228. Influenza A and B is negative. ASSESSMENT: 1. Acute viral syndrome with viral sinusitis and probably viral pneumonitis. 2. Chest pain with risk factors. 3. Diabetes mellitus, type 2, on oral hypoglycemic. 4. Gastroesophageal reflux disease. 5. Hyperlipidemia. 6. Essential hypertension. 7. Diabetic peripheral neuropathy. 8. Obesity; body mass index 35.8. PLAN: Continue current medication and treatment plan. Later the nuclear stress test results did show some reversibility. Will await further decision by Cardiology. MMODL / IJN: [id number] /
[2018-12-02 01:33] LABS: Glucose,Whole Blood 114 mg/dL (75-99)
[2018-12-02 06:27] LABS: Glucose,Whole Blood 118 mg/dL (75-99)
[2018-12-02] MEDS: INSULIN ASPART (NovoLOG) 100 UNIT/ML VIAL SQ SCH ×3 (06:40→16:53)
[2018-12-02] MEDS: buPROPion SR 150 MG TABLET.ER PO SCH (08:52)
[2018-12-02] MEDS: metFORMIN 500 MG TAB PO SCH ×2 (08:52→17:00)
[2018-12-02] MEDS: EZETIMIBE 10 MG TAB PO SCH (08:52)
[2018-12-02] MEDS: ASPIRIN 81 MG PO SCH (08:52)
[2018-12-02] MEDS: LISINOPRIL 20 MG TAB PO SCH (08:53)
[2018-12-02] MEDS: LORATADINE-PSEUDOEPH 5-120 MG 1 EACH TAB.ER.12H PO SCH (08:53)
[2018-12-02] MEDS: NAPROXEN 250 MG TAB PO SCH ×2 (08:54→17:01)
[2018-12-02] MEDS: MULTIVITAMINS, THERA 1 EACH TAB PO SCH (08:54)
--- NOTE | 2018-12-02 08:54 | EST ---
EXERCISE STRESS DATE OF SERVICE: 12/01/2018 AGE: 48 SEX: Female HT: 65" WT: 212 pounds PROTOCOL: Lexiscan Cardiolite STAGE: DURATION OF EXERCISE: HEART RATE REST: 92 BLOOD PRESSURE REST: 147/93 MAXIMUM HEART RATE ACHIEVED: 111 MAXIMUM BLOOD PRESSURE: 165/88 85% MPHR: 100% MPHR: METS: INDICATIONS: Chest pain. CLINICAL INFORMATION: STRESS DATA: Pretesting physical examination showed heart rate of 92, pressure is 147/93 mmHg. Baseline EKG showed sinus mechanism and 0.4 mg of Lexiscan given over 15 seconds per protocol. Max heart rate was 111 beats per minute and maximum pressure was 165/88 mmHg. Clinically, the patient did have chest discomfort. The EKG did not show any significant ST or T-wave abnormalities concerning for ischemia. CONCLUSION: 1. Nondiagnostic electrocardiogram stress testing. 2. Please follow up on the Cardiolite portion. MMODL / IJN: [id number] /
[2018-12-02 11:14] LABS: Glucose,Whole Blood 109 mg/dL (75-99)
[2018-12-02] MEDS: ALPRAZolam 0.25 MG TAB PO PRN ×2 (13:04→18:21)
[2018-12-02 15:05] VITALS: RESP 16; TEMP 98.1
[2018-12-02 16:12] LABS: Glucose,Whole Blood 123 mg/dL (75-99)
--- NOTE | 2018-12-02 17:32 | P.PN ---
Subjective Progress Note Date: 12/02/18 Principal diagnosis: Chest pain This 48-year-old female with multiple risk factors was admitted to the hospital with the recurrent chest pains. Her cardiac enzymes and EKGs were negative. Patient had a nuclear stress test which was reported as showing questionable ischemic changes at the apex. Patient was explained the nature of the findings and given the options of having cardiac catheterization for definitive diagnosis or having stress or dobutamine echocardiogram on continued medical therapy and observation. Patient had another bout of chest discomfort like a panic attack which apparently was relieved with Xanax. Patient preferred to go on medical therapy. She will consider cardiac catheterization if the symptoms persist. Patient will be discharged home on small dose of beta boo and aspirin. Follow-up in the office in one week Objective - Vital Signs Vital signs: Vital Signs Temp 98.1 F 12/02/18 08:55 Pulse 100 12/02/18 11:00 Resp 16 12/02/18 11:00 BP 145/91 12/02/18 11:00 Pulse Ox 96 12/02/18 11:00 Intake & Output 12/01/18 12/02/18 12/02/18 18:59 06:59 18:59 Intake Total 240 480 Balance 240 480 Weight 96.3 kg Intake: Oral 240 480 Other: Voiding Method Toilet Toilet # Voids 1 2 1 # Bowel Movements 1 1 - Exam GENERAL EXAM: Patient is alert and oriented and doesn't appear to be in any acute distress HEENT: Normocephalic. Normal reaction of pupils, equal size, normal range of extraocular motion. No erythema or exudates in the throat. NECK: No masses, no nuchal rigidity. CHEST: No chest wall deformity. LUNGS: Equal air entry with no crackles or wheeze. HEART: S1 and S2 normal with no audible mumurs or gallops. Regular rhythm, femorals equal on both sides.. ABDOMEN: No hepatosplenomegaly, normal bowel sounds, no guarding or rigidity. SKIN: No rashes CENTRAL NERVOUS SYSTEM: No focal deficits. EXTREMITIES: No cyanosis, clubbing or edema. - Labs CBC & Chem 7: 11/30/18 12:25 11/30/18 12:25 Labs: Abnormal Lab Results - Last 24 Hours (Table) 12/01/18 12/02/18 12/02/18 Range/Units 20:24 01:31 06:16 POC Glucose (mg/dL) 131 H 114 H 118 H (75-99) mg/dL 12/02/18 12/02/18 Range/Units 11:11 16:09 POC Glucose (mg/dL) 109 H 123 H (75-99) mg/dL Assessment and Plan (1) Chest pain Current Visit: Yes Status: Acute Code(s): R07.9 - CHEST PAIN, UNSPECIFIED SNOMED Code(s): 69421033 (2) Hypertension Current Visit: Yes Status: Acute Code(s): I10 - ESSENTIAL (PRIMARY) HYPERTENSION SNOMED Code(s): 32925294 (3) Hypercholesterolemia Current Visit: Yes Status: Acute Code(s): E78.00 - PURE HYPERCHOLESTEROLEMIA, UNSPECIFIED SNOMED Code(s): 79944042 (4) Diabetes mellitus Current Visit: Yes Status: Acute Code(s): E11.9 - TYPE 2 DIABETES MELLITUS WITHOUT COMPLICATIONS SNOMED Code(s): 01961139 Plan: Patient wants to continue with medical therapy and observation. Patient will be discharged home on beta boo and aspirin and nitroglycerin as needed. Follow-up in the office in one week
[2018-12-02 18:14] VITALS: BP 156/95; PULSE 101
--- NOTE | 2018-12-04 08:05 | DS ---
DISCHARGE SUMMARY DATE OF ADMISSION: 11/30/18. DATE OF DISCHARGE: 12/02/18. FINAL DIAGNOSES: 1. Acute viral syndrome with viral sinusitis and viral pneumonitis, present on admission. 2. Chest pain, probably from underlying viral pneumonitis. 3. Diabetes mellitus type 2 on oral hypoglycemic. 4. Gastroesophageal reflux disease. 5. Hyperlipidemia. 6. Essential hypertension. 7. Diabetic peripheral neuropathy. 8. Obesity; BMI 35.8. HOSPITAL COURSE: The patient presented feeling unwell, feeling hot, cold and congested, chest pressure. Because of patient's cardiac risk factors, patient did undergo a nuclear stress test that was evaluated by Cardiology and Cardiology okayed the patient to go home. The patient did have a 2-D echocardiogram that showed the EF of 55-60 percent. EXAMINATION: Temperature 98.1, pulse 93, respiration 16, blood pressure 130/84, pulse ox 94 percent on room air. LUNGS: Fair entry. CARDIOVASCULAR: 1st and 2nd sounds normal. DISCHARGE MEDICATIONS: 1. Aspirin 81 mg a day. 2. Calcium, magnesium, zinc 1 tablet p.o. daily. 3. Vasotec 20 mg p.o. daily. 4. Multivitamin one tab p.o. daily. 5. COQ-10 200 mg p.o. daily. 6. Norvasc 10 mg q.h.s. 7. Glucophage XR 500 mg with supper. 8. Vitamin D3 2000 units p.o. daily. 9. Fish oil 1000 mg p.o. daily. 10.Wellbutrin SR 150 mg b.i.d. 11.Lipitor 80 mg q.h.s. 12.Zetia 10 mg p.o. daily. 13.Claritin-D 1 tab q.12h 4 tablets. 14.Naproxen 250 mg p.o. t.i.d., 15 tablets. 15.Lopressor 12.5 p.o. b.i.d. has been added and will be called in to patient's pharmacy. Will also inform the patient about the same. FOLLOWUP: Follow up with Dr. Tidwell on December 13, 2018; follow Dr. Ariza in 1 week. MMODL / IJN: [id number] /
== END 2018-12-02 18:23 | disposition home or self-care (01) ==
LOC: EC 10:51 → 3SCARD 14:38
PROVIDERS: ADMIT Hospitalist; ATTEND Hospitalist
DX: J32.9 Chronic sinusitis, unspecified (principal); J12.9 Viral pneumonia, unspecified; B97.89 Other viral agents as the cause of diseases classified elsewhere; Z79.84 Long term (current) use of oral hypoglycemic drugs; K21.9 Gastro-esophageal reflux disease without esophagitis; E78.5 Hyperlipidemia, unspecified; E78.00 Pure hypercholesterolemia, unspecified; I10 Essential (primary) hypertension; E11.42 Type 2 diabetes mellitus with diabetic polyneuropathy; E66.9 Obesity, unspecified; Z68.35 Body mass index [BMI] 35.0-35.9, adult; E04.1 Nontoxic single thyroid nodule; F32.9 Major depressive disorder, single episode, unspecified; F41.9 Anxiety disorder, unspecified; Z80.1 Family history of malignant neoplasm of trachea, bronchus and lung; Z79.899 Other long term (current) drug therapy; Z79.82 Long term (current) use of aspirin; Z82.49 Family history of ischemic heart disease and other diseases of the circulatory system; Z82.5 Family history of asthma and other chronic lower respiratory diseases
CPT/HCPCS: 96376; 96361; 96374; 96375; 99285; 36415; 93005; 93017; 93306; 85379; 80061; 80053; 82150; 83690; 83735; 84484 ×2; 85025; 85610; 85730; 81001; 87502; 71046; 78452; G0378 ×3; A9500; J0360; S0106 ×3; J1885; J2785

== ENCOUNTER → 2019-08-11 | Outpatient (CLI) | payer BC ==
--- NOTE | 2019-08-15 10:29 | MM ---
Reason for exam: screening (asymptomatic). Last mammogram was performed 1 year and 1 month ago. History: Patient is postmenopausal and had first child at age 29. Family history of breast cancer in paternal grandmother at age 70. Took hormonal contraceptives for 5 years. Physical Findings: A clinical breast exam by your physician is recommended on an annual basis and results should be correlated with mammographic findings. MG 3D Screening Mammo W/Cad Bilateral CC and MLO view(s) were taken. Prior study comparison: June 28, 2018, bilateral MG 3d screening mammo w/cad. June 18, 2017, mammogram, performed at [facility]. The breast tissue is extremely dense which could obscure a lesion on mammography. Scattered regional calcifications left breast unchanged. Grouped calcifications posterior lateral right CC view appear increased. Not well localized on the MLO view. ASSESSMENT: Incomplete: need additional imaging evaluation, BI-RAD 0 RECOMMENDATION: Special view mammogram of the right breast. (mag views) If lesion persists on supplemental views, image directed ultrasound is recommended. [facility] will attempt to contact patient to return for supplemental views and ultrasound if indicated.
== END | disposition home or self-care (01) ==
LOC: RADMAMWWP 13:40
PROVIDERS: ATTEND Family Medicine
DX: Z12.31 Encounter for screening mammogram for malignant neoplasm of breast (principal)
CPT/HCPCS: 77063; 77067

== ENCOUNTER → 2019-08-23 | Outpatient (CLI) | payer BC ==
[2019-08-23 10:18] LABS: INR 0.9 (<1.2); Partial Thromboplastin Time 26.4 sec (22.0-30.0); Prothrombin Time 9.5 sec (9.0-12.0)
[2019-08-23 10:21] LABS: HCT 38.5 % (34.0-46.0); HGB 13.4 gm/dL (11.4-16.0); MCHC 34.9 g/dL (31.0-37.0); MCV 88.8 fL (80.0-100.0); Mean Platelet Volume 5.7; Platelet Count 357 k/uL (150-450); RBC 4.33 m/uL (3.80-5.40); RDW 12.7 % (11.5-15.5); WBC 5.9 k/uL (3.8-10.6)
[2019-08-23 16:43] LABS: % Iron Saturation 29.39 (12.00-45.00); African American GFR (CKD) 98.9 (60.0-200.0); Albumin 4.6 g/dL (3.80-4.90); Albumin/Globulin Ratio 1.84 (1.60-3.17); Anion Gap 9.4 mmol/L (4.00-12.00); BUN/Creat Ratio 18.75 Ratio (12.00-20.00); Calcium 9.5 mg/dL (8.7-10.3); Carbon Dioxide 25.6 mmol/L (21.6-31.8); Chol/HDL Ratio 3.19; Globulin 2.5 g/dL (1.6-3.3); LDL Cholesterol,Calculated 144.6 mg/dL (0.0-131.0); Magnesium 1.8 mg/dL (1.5-2.4); Non-African American GFR(CKD) 85.4 (60.0-200.0); Phosphorus 3.6 mg/dL (2.4-5.1); Potassium 4.1 mmol/L (3.5-5.5); Total Bilirubin 0.7 mg/dL (0.3-1.2); Total Protein 7.1 g/dL (6.2-8.2); VLDL Calculation 24.4 mg/dL (5.00-40.00)
[2019-08-23 16:50] LABS: Ferritin 66.2 ng/mL (10.0-291.0)
[2019-08-23 17:00] LABS: Folate, Serum 11.5 ng/mL
[2019-08-25 12:52] LABS: Vit B1(Thiamine) 61 ug/L (38-122)
[2019-08-25 13:12] LABS: Zinc, Serum 72 ug/dL (60-130)
[2019-08-26 09:25] LABS: Vitamin A 50 ug/dL (38-106)
[2019-08-28 17:42] LABS: Selenium 164 mcg/L (63-160)
== END | disposition home or self-care (01) ==
LOC: LABWHC1 09:04
PROVIDERS: ATTEND Family Medicine
DX: E66.01 Morbid (severe) obesity due to excess calories (principal); E21.1 Secondary hyperparathyroidism, not elsewhere classified; D50.8 Other iron deficiency anemias; K90.89 Other intestinal malabsorption; E55.9 Vitamin D deficiency, unspecified; K74.1 Hepatic sclerosis; N19 Unspecified kidney failure; K50.90 Crohn's disease, unspecified, without complications; E89.1 Postprocedural hypoinsulinemia
CPT/HCPCS: 36415; 80053; 80061; 82306; 82525; 82607; 82728; 82746; 83036; 83540; 83550; 83735; 83970; 84100; 84134; 84255; 84425; 84443; 84590; 84630; 85027; 85610; 85730

== ENCOUNTER → 2019-08-28 | Outpatient (CLI) | payer BC ==
--- NOTE | 2019-08-28 11:52 | MM ---
Reason for exam: additional evaluation requested from abnormal screening. Last mammogram was performed 1 month ago. History: Patient is postmenopausal and had first child at age 29. Family history of breast cancer in paternal grandmother at age 70. Took hormonal contraceptives for 5 years. Physical Findings: Nurse did not find any significant physical abnormalities on exam. MG 3D Work Up W/Cad RT Spot compression CC with magnification, ML with magnification, and ML view(s) were taken of the right breast. Prior study comparison: August 11, 2019, bilateral MG 3d screening mammo w/cad. June 28, 2018, bilateral MG 3d screening mammo w/cad. Finding: There are typically benign round, grouped/clustered and regional calcifications in the right breast, several levels. Increase in number of calcifications since August 11, 2019 and June 28, 2018. These results were verbally communicated with the patient and result sheet given to the patient on 08/28/19. ASSESSMENT: Probably benign, BI-RAD 3 RECOMMENDATION: Follow-up diagnostic mammogram of the right breast in 6 months.
== END | disposition home or self-care (01) ==
LOC: RADMAMWWP 10:06
PROVIDERS: ATTEND Family Medicine
DX: R92.8 Other abnormal and inconclusive findings on diagnostic imaging of breast (principal); Z80.3 Family history of malignant neoplasm of breast
CPT/HCPCS: 77061; 77065

== ENCOUNTER → 2019-09-01 | Outpatient (CLI) | payer BC ==
--- NOTE | 2019-09-01 14:23 | US ---
EXAMINATION TYPE: US thyroid st tissue head/neck DATE OF EXAM: 09/01/2019 COMPARISON: FNA only CLINICAL HISTORY: R22.0 Swelling/mass/lump abnormality head/neck. F/U GLAND SIZE: Right Lobe: 3.5 x 1.9 x 1.1 cm Overall Parenchyma: heterogenous Left Lobe: 4.8 x 2.2 x 2.6 cm Overall Parenchyma: heterogeneous Isthmus Thickness: 0.3 cm NODULES LEFT: # of nodules measured on left: 1 1. 2.7 X 2.3 x 3.0 cm hypoechoic solid nodule at the lower pole with well-defined margins; This no dule is wider than tall and shows intranodular vascularity. Prior size: 3.7 x 2.6 x 2.9 cm Bilateral neck scanned, no evidence of lymphadenopathy. Stable nodule left thyroid. Heterogeneous somewhat small size thyroid with fairly stable dominant left solid left thyroid nodule that was sampled August 19, 2018. IMPRESSION: As above. No new nodules are seen.
== END | disposition home or self-care (01) ==
LOC: RADUSWWP 13:31
PROVIDERS: ATTEND Surgery Plastic and Reconstructive Surgery
DX: E04.1 Nontoxic single thyroid nodule (principal)
CPT/HCPCS: 76536

== ENCOUNTER → 2019-09-04 | Day surgery (SDC) | payer BC ==
[2019-08-30 17:32] VITALS: BMI 36.1
[~2019-09-04] MED LIST changes: +ALPRAZolam 0.25 MG TAB PO PRN; +ALPRAZolam 0.5 MG TAB PO PRN; +ASPIRIN 325 MG TAB PO STA; +ATORVASTATIN 80 MG TAB PO STA; +IOPAMIDOL-370 125ML BTL INJ ONE; -LACTATED RINGERS 1,000 ML IV SCH; -LIDOCAINE 1% 20 ML VIAL (10MG/ML) FOR IV START INTRADERMA PRN; +LIDOCAINE 1% INJ 10MG/ML (20 ML MDV) SQ ONE; +MIDAZOLAM 2 MG/2 ML VIAL IV ONE; +NITROGLYCERIN SL TABS 0.4 MG TAB SUBLINGUAL PRN; +RX INFO: IV CONTRAST WAS GIVEN 1 EACH MISC MISCELLANE PRN; +SODIUM CHLORIDE 0.9% 1,000 ML IV ONE; +SODIUM CHLORIDE 0.9% 1,000 ML IV SCH; +SODIUM CHLORIDE 0.9% 1,000 ML in EMPTY BAG 1 BAG IV ONE; +VERAPAMIL SYRINGE (5 MG/10 ML) INTRAARTER ONE; +fentaNYL (PF) 50 MCG/ML 2 ML AMP IV ONE
[2019-09-04 08:34] LABS: Glucose,Whole Blood 118 mg/dL (75-99)
[2019-09-04 08:35] VITALS: TEMP 98.2
[2019-09-04 09:45] VITALS: RESP 16
--- NOTE | 2019-09-04 09:56 | P.CARDCATH ---
Date of Procedure: 09/04/19 Preoperative Diagnosis: Positive stress test and chest pains with multiple risk factors Postoperative Diagnosis: Mild diffuse disease without any critical stenosis Procedure(s) Performed: Left heart catheterization without left ventriculography Description of Procedure: HISTORY: This is a 49-year-old female with history of hypertension, diabetes and hypercholesterolemia who has been experiencing chest pains and shortness of br eath. A stress test was size to of ischemia at the apex. Patient is advised to have a cardiac catheterization for definitive diagnosis. CONSENT:I have discussed the risks, benefits and alternative therapies for the above-mentioned procedure and for both sedation/analgesia as well as necessary blood product administration, if indicated, as they pertain to this patient. The patient has indicated understanding and acceptance of the risks and procedures discussed. PROCEDURE: Patient was brought to the lab in a fasting state. Patient was given some IV sedation. The right wrist is infiltrated with lidocaine and right radial artery was entered using Seldinger technique. A 6-Canadian catheter was left in place and selective coronary arteriography was performed. Patient tolerated the procedure well. TR band was applied for hemostasis. No immediate complications were noted and patient was transferred to [facility] in a stable condition Conscious Sedation: Versed 1mg Fentanyl 25 g Duration 22minutes HEMODYNAMICS: The aortic pressure was about 140/70. The left ventricle end- diastolic pressure was about 12. There was no gradient across the aortic valve SELECTIVE CORONARY ARTERIOGRAPHY: LEFT MAIN: Short and free of occlusive disease THE LEFT ANTERIOR DESCENDING CORONARY ARTERY:. This is a fair caliber vessel with mild diffuse plaque without any significant focal occlusive disease. THE INTERMEDIATE CORONARY ARTERY: This is a small- caliber vessel with about 30-40% lesion in the midportion. THE LEFT CIRCUMFLEX AND IS CORONARY ARTERY: This is a good caliber vessel with mild diffuse plaque without any significant focal occlusive disease THE RIGHT CORONARY ARTERY:. This is a dominant vessel giving rise to PDA and PLV and free of any significant occlusive disease LEFT VENTRICULOGRAPHY:. Not performed FINAL IMPRESSION:, Mild diffuse disease without any critical stenosis PLAN: Maximum medical therapy and this factor modification PROGNOSIS: Fair
[2019-09-04 10:05] LABS: Glucose,Whole Blood 128 mg/dL (75-99)
[2019-09-04 10:28] VITALS: BP 125/79; PULSE 73
== END | disposition home or self-care (01) ==
LOC: CATHCVL 08:04
PROVIDERS: ATTEND Internal Medicine Cardiovascular Disease
DX: I25.110 Atherosclerotic heart disease of native coronary artery with unstable angina pectoris (principal); I10 Essential (primary) hypertension; E11.9 Type 2 diabetes mellitus without complications; E78.00 Pure hypercholesterolemia, unspecified; Z79.84 Long term (current) use of oral hypoglycemic drugs; Z79.899 Other long term (current) drug therapy
CPT/HCPCS: 93458; C1769; C1894; J2250; J2001; J3010; J1644; Q9967

== ENCOUNTER → 2020-05-15 | Outpatient (CLI) | payer BC ==
--- NOTE | 2020-05-16 07:51 | MM ---
Reason for exam: follow-up at short interval from prior study. Last mammogram was performed 9 months ago. History: Patient is postmenopausal and had first child at age 29. Family history of breast cancer in paternal grandmother at age 70. Took hormonal contraceptives for 5 years. Physical Findings: Nurse did not find any significant physical abnormalities on exam. MG 3D Diag Mammo Wo Cad RT CC, MLO, and XCCL view(s) were taken of the right breast. Prior study comparison: August 28, 2019, right breast MG 3d work up w/cad RT. August 11, 2019, bilateral MG 3d screening mammo w/cad. The breast tissue is heterogeneously dense. This may lower the sensitivity of mammography. Stable scattered benign appearing calcifications. There is no discrete abnormality. ASSESSMENT: Benign, BI-RAD 2 RECOMMENDATION: Return to routine screening mammogram schedule for both breasts. Back on schedule for July 2020. Manage patient on a clinical basis.
== END | disposition home or self-care (01) ==
LOC: RADMAMWWP 14:49
PROVIDERS: ATTEND Family Medicine
DX: R92.1 Mammographic calcification found on diagnostic imaging of breast (principal)
CPT/HCPCS: 77061; 77065

== ENCOUNTER 2020-07-18 09:34 | Emergency (ER) | payer BC ==
[2020-07-18 09:43] VITALS: TEMP 99.4
[2020-07-18] MEDS ORDERED: ONDANSETRON 4 MG/2 ML VIAL IVP STA (10:01)
[2020-07-18] MEDS ORDERED: DIAZEPAM 5 MG/ML 2 ML INJ IVP STA (10:01)
[2020-07-18] MEDS ORDERED: MECLIZINE 12.5 MG TAB PO STA (10:01)
[2020-07-18] MEDS ORDERED: SODIUM CHLORIDE 0.9% 1,000 ML IV STA (10:01)
--- NOTE | 2020-07-18 10:08 | ED ---
Dizziness HPI - General Chief Complaint: Dizziness Stated Complaint: near syncope, head pressure Time Seen by Provider: 07/18/20 09:52 Source: patient, RN notes reviewed Mode of arrival: wheelchair Limitations: no limitations - History of Present Illness Initial Comments: This is a 50-year-old female presents emergency Department chief complaint of dizziness. Patient states this started on Wednesday in which she believes it was related to her medication change. Patient states that she was on Lamictal 25 mg. Patient states that she felt like it was not lasting long muscles they increase it to extended release. She states that she is taking her prior 6 days prior to starting. Patient states that her symptoms persisted even though she stopped her medications. She states that she has some lightheadedness at rest but states any movement exacerbates her dizziness and states that she has room spinning. Patient states that she's never had any issues with this in the past. She is concerned because her aunt had an aneurysm. She has mild head pressure no severe headache that he full weakness, chest pain, shortness breath. She doesn't that she is very anxious has a history of panic attacks. Patient denies any vomiting states that she's had some nausea no back pain - Related Data Home Medications Medication Instructions Recorded Confirmed Aspirin [Adult Low Dose Aspirin EC] 81 mg PO DAILY 08/05/18 09/04/19 Calcium/Magnesium/Zinc 1 each PO DAILY 08/05/18 09/04/19 [Ngyynaj-Mylgpfgys-Jony Tablet] Enalapril [Vasotec] 20 mg PO DAILY 08/05/18 09/04/19 Multivitamins, Thera [Multivitamin 1 tab PO DAILY 08/05/18 09/04/19 (formulary)] amLODIPine [Norvasc] 10 mg PO HS 08/05/18 09/04/19 Cholecalciferol (Vitamin D3) 2,000 unit PO DAILY 11/30/18 09/04/19 [Vitamin D3] Citalopram Hydrobromide [CeleXA] 40 mg PO HS 08/30/19 09/04/19 Krill/[place]-3/Dha/Epa/Lipids 1 each PO DAILY 08/30/19 09/04/19 [Krill Oil 350 mg Softgel] Loratadine-Pseudoeph 5-120 mg 1 each PO Q12HR PRN 08/30/19 09/04/19 [Claritin-D 12 Hour] Metoprolol Succinate (ER) [Toprol 25 mg PO DAILY 08/30/19 09/04/19 XL] Ubidecarenone [Co Q-10] 400 mg PO DAILY 08/30/19 09/04/19 Previous Rx's Medication Instructions Recorded Atorvastatin [Lipitor] 80 mg PO HS #30 tab 12/02/18 Ezetimibe [Zetia] 10 mg PO DAILY #30 tab 12/02/18 Nitroglycerin Sl Tabs [Nitrostat] 0.4 mg SUBLINGUAL Q5M PRN #25 tab 12/03/18 Nitroglycerin Sl Tabs [Nitrostat] 0.4 mg SUBLINGUAL Q5M PRN #100 tab 09/04/19 Amoxicillin/Potassium Clav 1 tab PO Q12HR #20 tab 07/18/20 [Augmentin 875-125 Tablet] Meclizine [Antivert] 25 mg PO TID PRN #20 tab 07/18/20 Ondansetron Odt [Zofran Odt] 4 mg PO Q8HR PRN #10 tab 07/18/20 Allergies Allergy/AdvReac Type Severity Reaction Status Date / Time No Known Allergies Allergy Verified 07/18/20 09:43 Review of Systems ROS Statement: Those systems with pertinent positive or pertinent negative responses have been documented in the HPI. ROS Other: All systems not noted in ROS Statement are negative. Past Medical History Past Medical History: Chest Pain / Angina, Diabetes Mellitus, GERD/Reflux, Hyp erlipidemia, Hypertension, Thyroid Disorder Additional Past Medical History / Comment(s): TMJ, neuropathy bilateral feet and occasioanly hands, thyroid nodule, History of Any Multi-Drug Resistant Organisms: None Reported Past Surgical History: Bladder Surgery, Hysterectomy, Orthopedic Surgery, Tubal Ligation Additional Past Surgical History / Comment(s): R oophorectomy, bladder suspension, ORIF R ankle, EGD with bx and colonoscopy. Past Anesthesia/Blood Transfusion Reactions: Previous Problems w/ Anesthesia Additional Past Anesthesia/Blood Transfusion Reaction / Comment(s): "hard time waking up". Pt received blood with hysterectomy. Past Psychological History: Anxiety, Depression Smoking Status: Never smoker Past Alcohol Use History: None Reported Past Drug Use History: Marijuana - Past Family History Father Family Medical History: Cancer Additional Family Medical History / Comment(s): . Sister(s) Family Medical History: Cancer Mother Family Medical History: COPD Additional Family Medical History / Comment(s): Mother of COPD at the age of 61 yrs. She was a smoker General Exam Limitations: no limitations General appearance: alert, in no apparent distress Head exam: Present: atraumatic, normocephalic, normal inspection Eye exam: Present: normal appearance, PERRL, EOMI. Absent: scleral icterus, conjunctival injection, periorbital swelling ENT exam: Present: normal exam, normal oropharynx, mucous membranes moist Neck exam: Present: normal inspection, full ROM. Absent: tenderness, meningi smus, lymphadenopathy Respiratory exam: Present: normal lung sounds bilaterally. Absent: respiratory distress, wheezes, rales, rhonchi, stridor Cardiovascular Exam: Present: regular rate, normal rhythm, normal heart sounds. Absent: systolic murmur, diastolic murmur, rubs, gallop, clicks GI/Abdominal exam: Present: soft, normal bowel sounds. Absent: distended, tenderness, guarding, rebound, rigid Extremities exam: Present: normal inspection, full ROM, normal capillary refill. Absent: tenderness, pedal edema, joint swelling, calf tenderness Neurological exam: Present: alert, oriented X3, CN II-XII intact, reflexes normal, other (Finger to nose intact). Absent: motor sensory deficit Skin exam: Present: warm, dry, intact, normal color. Absent: rash Course Vital Signs 07/18/20 09:40 Temperature 99.4 F Pulse Rate 86 Respiratory 18 Rate Blood Pressure 135/94 O2 Sat by Pulse 98 Oximetry EKG Findings - EKG Comments: EKG Findings:: EKG performed at 10:10 normal sinus rhythm rate of 76 AR 156 QRS 92 QT/QTC 388/436 Medical Decision Making - Medical Decision Making 50-year-old female presented for dizziness. Patient's been having dizziness since the weekend. Patient does feel slightly improved after Valium and Antivert. Patient's CT shows evidence of severe left-sided. Nasal sinus disease patient was able to ambulate to the bathroom reports mild dizziness was not ataxic. CT did not reveal any evidence of bleeding or mass. Patient's labs are unremarkable. Patient was offered admission versus home she feels that she feels comfortable with discharge with medications she'll follow-up with ENT and return for worsening change in symptoms. - Lab Data Result diagrams: 07/18/20 10:09 07/18/20 10:09 Lab Results 07/18/20 07/18/20 07/18/20 Range/Units 10:09 10: 10:09 WBC 6.1 (3.8-10.6) k/uL RBC 4.27 (3.80-5.40) m/uL Hgb 13.5 (11.4-16.0) gm/dL Hct 39.2 (34.0-46.0) % MCV 91.7 (80.0-100.0) fL MCH 31.6 (25.0-35.0) pg MCHC 34.4 (31.0-37.0) g/dL RDW 13.2 (11.5-15.5) % Plt Count 334 (150-450) k/uL Neutrophils % 62 % Lymphocytes % 25 % Monocytes % 5 % Eosinophils % 5 % Basophils % 1 % Neutrophils # 3.8 (1.3-7.7) k/uL Lymphocytes # 1.5 (1.0-4.8) k/uL Monocytes # 0.3 (0-1.0) k/uL Eosinophils # 0.3 (0-0.7) k/uL Basophils # 0.1 (0-0.2) k/uL Sodium 136 L (137-145) mmol/L Potassium 4.1 (3.5-5.1) mmol/L Chloride 102 (98-107) mmol/L Carbon Dioxide 26 (22-30) mmol/L Anion Gap 8 mmol/L BUN 14 (7-17) mg/dL Creatinine 0.66 (0.52-1.04) mg/dL Est GFR (CKD-EPI)AfAm >90 (>60 ml/min/1.73 sqM) Est GFR (CKD-EPI)NonAf >90 (>60 ml/min/1.73 sqM) Glucose 133 H (74-99) mg/dL Calcium 9.6 (8.4-10.2) mg/dL Total Bilirubin 1.0 (0.2-1.3) mg/dL AST 26 (14-36) U/L ALT 28 (4-34) U/L Alkaline Phosphatase 63 (38-126) U/L Troponin I (0.000-0.034) ng/mL Total Protein 7.4 (6.3-8.2) g/dL Albumin 4.5 (3.5-5.0) g/dL Urine Color Light Yellow Urine Appearance Clear (Clear) Urine pH 7.5 (5.0-8.0) Ur Specific [place] 1.006 (1.001-1.035) Urine Protein Negative (Negative) Urine Glucose (UA) Negative (Negative) Urine Ketones Negative (Negative) Urine Blood Negative (Negative) Urine Nitrite Negative (Negative) Urine Bilirubin Negative (Negative) Urine Urobilinogen <2.0 (<2.0) mg/dL Ur Leukocyte Esterase Negative (Negative) 07/18/20 Range/Units 10:09 WBC (3.8-10.6) k/uL RBC (3.80-5.40) m/uL Hgb (11.4-16.0) gm/dL Hct (34.0-46.0) % MCV (80.0-100.0) fL MCH (25.0-35.0) pg MCHC (31.0-37.0) g/dL RDW (11.5-15.5) % Plt Count (150-450) k/uL Neutrophils % % Lymphocytes % % Monocytes % % Eosinophils % % Basophils % % Neutrophils # (1.3-7.7) k/uL Lymphocytes # (1.0-4.8) k/uL Monocytes # (0-1.0) k/uL Eosinophils # (0-0.7) k/uL Basophils # (0-0.2) k/uL Sodium (137-145) mmol/L Potassium (3.5-5.1) mmol/L Chloride (98-107) mmol/L Carbon Dioxide (22-30) mmol/L Anion Gap mmol/L BUN (7-17) mg/dL Creatinine (0.52-1.04) mg/dL Est GFR (CKD-EPI)AfAm (>60 ml/min/1.73 sqM) Est GFR (CKD-EPI)NonAf (>60 ml/min/1.73 sqM) Glucose (74-99) mg/dL Calcium (8.4-10.2) mg/dL Total Bilirubin (0.2-1.3) mg/dL AST (14-36) U/L ALT (4-34) U/L Alkaline Phosphatase (38-126) U/L Troponin I <0.012 (0.000-0.034) ng/mL Total Protein (6.3-8.2) g/dL Albumin (3.5-5.0) g/dL Urine Color Urine Appearance (Clear) Urine pH (5.0-8.0) Ur Specific [place] (1.001-1.035) Urine Protein (Negative) Urine Glucose (UA) (Negative) Urine Ketones (Negative) Urine Blood (Negative) Urine Nitrite (Negative) Urine Bilirubin (Negative) Urine Urobilinogen (<2.0) mg/dL Ur Leukocyte Esterase (Negative) Disposition Clinical Impression: Sinusitis, Vertigo Disposition: HOME SELF-CARE Condition: Stable Instructions (If sedation given, give patient instructions): Dizziness (ED) Additional Instructions: Please return to the Emergency Department if symptoms worsen or any other concerns. Prescriptions: Meclizine [Antivert] 25 mg PO TID PRN #20 tab PRN Reason: Vertigo Amoxicillin/Potassium Clav [Augmentin 875-125 Tablet] 1 tab PO Q12HR #20 tab Ondansetron Odt [Zofran Odt] 4 mg PO Q8HR PRN #10 tab PRN Reason: Nausea Is patient prescribed a controlled substance at d/c from ED?: No Referrals: Shay Tidwell DO [Primary Care Provider] - 1-2 days Gaurav Henley MD [STAFF PHYSICIAN] - 1-2 days Time of Disposition: 12:09
[2020-07-18 10:37] LABS: Appearance,Urine Clear (Clear); Bilirubin,Urine Negative (Negative); Blood,Urine Negative (Negative); Color,Urine Light Yellow; Glucose,Urine (UA) Negative (Negative); Ketones,Urine Negative (Negative); Leukocyte Esterase,Urine Negative (Negative); Nitrite,Urine Negative (Negative); PH, Urine 7.5 (5.0-8.0); Protein,Urine Negative (Negative); Specific Gravity,Urine 1.006 (1.001-1.035); Urobilinogen,Urine <2.0 mg/dL (<2.0)
[2020-07-18 10:39] LABS: Basophils # (A) 0.1 k/uL (0-0.2); Basophils % (A) 1 %; Eosinophils # (A) 0.3 k/uL (0-0.7); Eosinophils % (A) 5 %; HCT 39.2 % (34.0-46.0); HGB 13.5 gm/dL (11.4-16.0); Lymphocytes # (A) 1.5 k/uL (1.0-4.8); Lymphocytes % (A) 25 %; MCH 31.6 pg (25.0-35.0); MCHC 34.4 g/dL (31.0-37.0); MCV 91.7 fL (80.0-100.0); Monocytes # (A) 0.3 k/uL (0-1.0); Monocytes % (A) 5 %; Neutrophils # (A) 3.8 k/uL (1.3-7.7); Neutrophils % (A) 62 %; Platelet Count 334 k/uL (150-450); RBC 4.27 m/uL (3.80-5.40); RDW 13.2 % (11.5-15.5); WBC 6.1 k/uL (3.8-10.6)
[2020-07-18 10:44] LABS: ALT 28 U/L (4-34); AST 26 U/L (14-36); African American GFR (CKD) >90 (>60 ml/min/1.73 sqM); Albumin 4.5 g/dL (3.5-5.0); Alkaline Phosphatase 63 U/L (38-126); Anion Gap 8 mmol/L; Blood Urea Nitrogen 14 mg/dL (7-17); Calcium 9.6 mg/dL (8.4-10.2); Carbon Dioxide 26 mmol/L (22-30); Chloride 102 mmol/L (98-107); Glucose 133 mg/dL (74-99); Non-African American GFR(CKD) >90 (>60 ml/min/1.73 sqM); Potassium 4.1 mmol/L (3.5-5.1); Sodium 136 mmol/L (137-145); Total Protein 7.4 g/dL (6.3-8.2)
--- NOTE | 2020-07-18 11:04 | CT ---
EXAMINATION TYPE: CT brain wo con DATE OF EXAM: 07/18/2020 COMPARISON: None HISTORY: 50-year-old female Weakness and dizziness TECHNIQUE: Examination was done in axial plane without intravenous contrast. Coronal and sagittal r econstructions performed. CT DLP: 1054.4 mGycm Automated exposure control for dose reduction was used. FINDINGS: There is no evidence of acute intracranial hemorrhage, acute ischemic changes, mass, mass-effect, or extra-axial fluid collection. There is no effacement of cerebral sulci or basal subarachnoid cister ns. There is no hydrocephalus. There is no midline shift. Arzate-white matter distinction is preserv ed. Complete opacification of the left maxillary sinus as well as the left anterior ethmoid air cells and moderate mucosal thickening left frontal sinus. Mastoid air cells well pneumatized. IMPRESSION: No acute intracranial abnormality seen. Severe left-sided paranasal sinus disease. Consider obstruction of the left osteomeatal complex. Outp atient ENT referral may be beneficial.
[2020-07-18] MEDS ORDERED: METOCLOPRAMIDE 5 MG/ML 2 ML VIAL IVP STA (12:01)
[2020-07-18] MEDS ORDERED: diphenhydrAMINE 50 MG/ML 1 ML VIAL IVP STA (12:01)
[2020-07-18] MEDS ORDERED: cefTRIAXone IN SWFI 1,000 MG/10 ML SYRINGE IVP STA (12:01)
[2020-07-18 12:46] VITALS: BP 118/80; PULSE 70; RESP 16
== END 2020-07-18 12:53 | disposition home or self-care (01) ==
LOC: EC 09:34
DX: J32.9 Chronic sinusitis, unspecified (principal); R42 Dizziness and giddiness; F41.9 Anxiety disorder, unspecified; F32.9 Major depressive disorder, single episode, unspecified; I10 Essential (primary) hypertension; G62.9 Polyneuropathy, unspecified; Z79.82 Long term (current) use of aspirin; Z79.899 Other long term (current) drug therapy
CPT/HCPCS: 36415; 93005; 80053; 84484; 85025; 81003; 70450; 99284; 96374; 96375 ×4; 96361; J1200; J2765; J3360; J2405; J0696

== ENCOUNTER → 2020-08-28 | Outpatient (CLI) | payer BC ==
--- NOTE | 2020-08-28 11:54 | CT ---
EXAMINATION TYPE: CT sinus wo con DATE OF EXAM: 08/28/2020 COMPARISON: None HISTORY: vertigo CT DLP: 389 mGycm. Automated Exposure Control for Dose Reduction was Utilized. TECHNIQUE: CT scan of the sinuses is performed without contrast, axial images are obtained, coronal r eformatted images are also reviewed. FINDINGS: The paranasal sinuses including the frontal, ethmoid, sphenoid, and maxillary sinuses bila terally are well-aerated mucous retention cyst or polyps involving the left maxillary antrum. Spina b ifida occulta of C1 noted. The ostiomeatal complex is patent bilaterally on the coronal images. Visualized portion of mastoid air cells show no abnormal opacification. The globes are intact bilate rally. Intracranial structures are symmetric. IMPRESSION: 1. Mucous retention cyst within the left maxillary sinus otherwise no evidence of sinusitis.
== END | disposition home or self-care (01) ==
LOC: RADCTMAIN 11:08
PROVIDERS: ATTEND Otolaryngology
DX: J32.9 Chronic sinusitis, unspecified (principal)
CPT/HCPCS: 70486

== ENCOUNTER → 2020-11-05 | Outpatient (CLI) | payer BC ==
--- NOTE | 2020-11-05 14:04 | XR ---
EXAMINATION TYPE: XR foot complete LT DATE OF EXAM: 11/05/2020 COMPARISON: NONE HISTORY: Pain TECHNIQUE: Three views are submitted. FINDINGS: The osseous structures are intact. There is no acute fracture or dislocation. Arthropathy of the f irst MTP. Hypertrophic change involving the base of fifth metatarsal. Tiny plantar calcaneal spur. So ft tissue prominence overlying the dorsum of the foot just distal to the talus. IMPRESSION: 1. Arthropathy.
== END | disposition home or self-care (01) ==
LOC: RADXRMAIN 13:19
PROVIDERS: ATTEND Family Medicine
DX: M12.872 Other specific arthropathies, not elsewhere classified, left ankle and foot (principal)

== ENCOUNTER → 2020-12-25 | Outpatient (CLI) | payer BC ==
--- NOTE | 2020-12-25 18:06 | CONS ---
CONSULTATION DATE OF SERVICE: 12/25/2020 REASON FOR CONSULTATION: A 50-year-old lady who has been evaluated in the sleep Center for possible obstructive sleep apnea-hypopnea syndrome, also periodic limb movements and daytime sleepiness. HISTORY OF PRESENT ILLNESS/SLEEP-WAKE EVALUATION: Patient's usual sleep schedule from 10:30 p.m. to about 7 or 8 a.m. 7 days a week. No problems with falling asleep. No TV in bedroom. She sleeps in different position. According to her , she snores and she wakes up from sleep 3 times with up to 3 episodes of nocturia. Positive history of grinding teeth and awakenings with dry mouth. The patient has history of restless leg symptoms and also she twitches and kicks her legs during the sleep. Positive history of sweating. In the morning patient wakes up tired, has difficulties to pay attention, falling asleep during the day, has problems with memory, concentration, irritability, depression, sexual dysfunction. [place] Sleepiness Scale increased to 13. PAST MEDICAL HISTORY: Positive for hypertension, hyperlipidemia, diabetes mellitus, sinus problems, headaches, acid reflux, depression. PAST SURGICAL HISTORY: Bladder suspension, tubal ligation, uterus ablation, partial hysterectomy, surgery on the right ankle in 2014. MEDICATIONS: Atorvastatin 80 mg once a day, enalapril 20 mg twice a day, hydrochlorothiazide 25 mg once a day, metformin ER 500 mg 2 tablets, Januvia 100 mg in the morning, [id number] mg in the morning, metoprolol extended release 25 mg in the morning, aspirin 81 mg once a day, progesterone 200 mg at bedtime, vitamins, omega-3 supplements. SOCIAL HISTORY: Negative for smoking. Alcohol consumption occasional. FAMILY HISTORY: Positive for cancer, heart problems. REVIEW OF SYSTEMS: Awakenings from sleep, sleepiness during the day. PHYSICAL EXAMINATION: GENERAL: lady without distress. VITAL SIGNS: BP 118/75, HR 80, RR 15, height 5 feet 5 inches, weight 220.8, temperature 98.1. Oxygen saturation at room air 98%. BMI 36.9. HEENT: PERRLA, EOMI, evaluation of oropharynx showed tongue protrudes midline. Extremely low position of soft palate. Mallampati 4. NECK: Supple, no JVD. Thyroid is not palpable. Wide neck is 17 inches in circumference. LUNGS: Clear to percussion and to auscultation. Good air exchange. No wheezing or rhonchi. HEART: S1, S2 regular. No murmurs, gallops, or rubs. ABDOMEN: Obese, soft and nontender. Bowel sounds are present. No organomegaly appreciated. EXTREMITIES: No clubbing or cyanosis. METALLURGIST HELPER: Awake, alert, and oriented X3. Cranial nerves 2 to 7 intact. There is no fasciculation or atrophy. noted. No focal deficits observed. IMPRESSION: 1. Snoring, multiple awakenings from sleep with nocturia, extremely low position of soft palate, wide neck at 17 inches in circumference, sleepiness with [place] Sleepiness Scale increased to 13, obstructive sleep apnea-hypopnea syndrome. 2. Obesity with BMI 36.9. 3. Restless legs syndrome. 4. Hypothyroidism. 5. Possible periodic limb movements. 6. Anxiety. 7. Hypertension. 8. Hyperlipidemia. 9. Diabetes mellitus. 10.History of sinus problems. 11.Headaches. 12.Acid reflux. 13.History of depression. 14.Status post bladder suspension. 15.Status post tubal ligation. 16.Status post uterus ablation. 17.Status post partial hysterectomy 2012. 18.Status post right ankle surgery 2014. PLAN: 1. Home sleep apnea test for evaluation of patient's breathing during sleep. 2. Following plan after reviewing sleep studies. The patient may need a polysomnogram for evaluation of her possible periodic limb movements syndrome. 3. Losing weight. 4. Sleep hygiene with regular time in bed for 7-1/2 to 8 hours. 5. No driving if feeling any sleepiness. Thank you very much for referring this patient for consultation. Sincerely, Dontrell Vigil MD, PhD, FAASM Diplomat of [employer] Analytical Laboratory Technician of [facility] [place] MMODL / IJN: [id number] /
== END ==
LOC: SLEEP 16:57
PROVIDERS: ATTEND Internal Medicine
DX: G47.33 Obstructive sleep apnea (adult) (pediatric) (principal); E66.9 Obesity, unspecified; G25.81 Restless legs syndrome; E03.9 Hypothyroidism, unspecified; F41.9 Anxiety disorder, unspecified; I10 Essential (primary) hypertension; E78.5 Hyperlipidemia, unspecified; E11.9 Type 2 diabetes mellitus without complications; R51.9 Headache, unspecified; K21.9 Gastro-esophageal reflux disease without esophagitis; J98.9 Respiratory disorder, unspecified; F32.9 Major depressive disorder, single episode, unspecified; Z68.36 Body mass index [BMI] 36.0-36.9, adult; Z98.51 Tubal ligation status; Z90.711 Acquired absence of uterus with remaining cervical stump; Z79.899 Other long term (current) drug therapy; Z98.890 Other specified postprocedural states
CPT/HCPCS: 99211

== ENCOUNTER 2021-03-04 19:53 | Inpatient (IN) | payer BC ==
--- NOTE | 2021-03-04 20:48 | ED ---
Animal Bite HPI - General Chief Complaint: Animal Bite Stated Complaint: Dog bite Time Seen by Provider: 03/04/21 20:25 Source: patient Mode of arrival: ambulatory Limitations: physical limitation - History of Present Illness Initial Comments: Patient is a 51-year-old female presenting to the emergency Department with complaints of an animal bite that happened yesterday evening at approximate 6 PM. Patient states that she went to grab her dog's food bowl when the dog bit her on her left index finger. Patient states there was very minimal bleeding so she did not think anything of it at the time. Her dog is up-to-date with his vaccines including rabies. Patient is also up-to-date with her tetanus vaccine. She states she woke up this morning and noticed lots of swelling and redness of her left hand, so she went to urgent care first thing this morning. She received a shot of Rocephin, put her on Augmentin and also gave her an antibiotic ointment to use. Patient states over the last few hours she noticed increase in pain and red streaks up her left arm. She got concerned and came into the ER for evaluation. She denies any fevers. She took one dose of Augmentin. Patient denies any chest pain or shortness of breath, nausea or vomiting. She has no further complaints at this time. - Related Data Home Medications Medication Instructions Recorded Confirmed Aspirin [Adult Low Dose Aspirin EC] 81 mg PO DAILY 08/05/18 09/04/19 Calcium/Magnesium/Zinc 1 each PO DAILY 08/05/18 09/04/19 [Cqleimd-Nijveoxwe-Uonf Tablet] Enalapril [Vasotec] 20 mg PO DAILY 08/05/18 09/04/19 Multivitamins, Thera [Multivitamin 1 tab PO DAILY 08/05/18 09/04/19 (formulary)] amLODIPine [Norvasc] 10 mg PO HS 08/05/18 09/04/19 Cholecalciferol (Vitamin D3) 2,000 unit PO DAILY 11/30/18 09/04/19 [Vitamin D3] Citalopram Hydrobromide [CeleXA] 40 mg PO HS 08/30/19 09/04/19 Krill/Alexander-3/Dha/Epa/Lipids 1 each PO DAILY 08/30/19 09/04/19 [Krill Oil 350 mg Softgel] Loratadine-Pseudoeph 5-120 mg 1 each PO Q12HR PRN 08/30/19 09/04/19 [Claritin-D 12 Hour] Metoprolol Succinate (ER) [Toprol 25 mg PO DAILY 08/30/19 09/04/19 XL] Ubidecarenone [Co Q-10] 400 mg PO DAILY 08/30/19 09/04/19 Previous Rx's Medication Instructions Recorded Atorvastatin [Lipitor] 80 mg PO HS #30 tab 12/02/18 Ezetimibe [Zetia] 10 mg PO DAILY #30 tab 12/02/18 Nitroglycerin Sl Tabs [Nitrostat] 0.4 mg SUBLINGUAL Q5M PRN #25 tab 12/03/18 Nitroglycerin Sl Tabs [Nitrostat] 0.4 mg SUBLINGUAL Q5M PRN #100 tab 09/04/19 Amoxicillin/Potassium Clav 1 tab PO Q12HR #20 tab 07/18/20 [Augmentin 875-125 Tablet] Meclizine [Antivert] 25 mg PO TID PRN #20 tab 07/18/20 Ondansetron Odt [Zofran Odt] 4 mg PO Q8HR PRN #10 tab 07/18/20 Allergies Allergy/AdvReac Type Severity Reaction Status Date / Time No Known Allergies Allergy Verified 03/04/21 20:14 Review of Systems ROS Statement: Those systems with pertinent positive or pertinent negative responses have been documented in the HPI. ROS Other: All systems not noted in ROS Statement are negative. Past Medical History Past Medical History: Chest Pain / Angina, Diabetes Mellitus, GERD/Reflux, Hyperlipidemia, Hypertension, Thyroid Disorder Additional Past Medical History / Comment(s): TMJ, neuropathy bilateral feet and occasioanly hands, thyroid nodule, History of Any Multi-Drug Resistant Organisms: None Reported Past Surgical History: Bladder Surgery, Hysterectomy, Orthopedic Surgery, Tubal Ligation Additional Past Surgical History / Comment(s): R oophorectomy, bladder suspension, ORIF R ankle, EGD with bx and colonoscopy. left foot Past Anesthesia/Blood Transfusion Reactions: Previous Problems w/ Anesthesia Additional Past Anesthesia/Blood Transfusion Reaction / Comment(s): "hard time waking up". Pt received blood with hysterectomy. Past Psychological History: Anxiety, Depression Smoking Status: Never smoker Past Alcohol Use History: None Reported Past Drug Use History: Marijuana - Past Family History Father Family Medical History: Cancer Additional Family Medical History / Comment(s): . Sister(s) Family Medical History: Cancer Mother Family Medical History: COPD Additional Family Medical History / Comment(s): Mother of COPD at the age of 61 yrs. She was a smoker General Exam - General Exam Comments Initial Comments: GENERAL: Patient is well-developed and well-nourished. Patient is nontoxic and in no acute distress. HEAD: Atraumatic, normocephalic. EYES: Pupils equal round and reactive to light, extraocular movements intact, sclera anicteric, conjunctiva are normal. Eyelids were unremarkable. ENT: TMs normal, nares patent, oropharynx clear without exudates. Moist mucous membranes. NECK: Normal range of motion, supple without lymphadenopathy or JVD. LUNGS: Unlabored respirations. Breath sounds clear to auscultation bilaterally and equal. No wheezes rales or rhonchi. HEART: Regular rate and rhythm without murmurs, rubs or gallops. ABDOMEN: Soft, nontender, normoactive bowel sounds. No guarding, no rebound. No masses appreciated. : Deferred MUSCULOSKELETAL: Patient has swelling and erythema noted over the dorsal aspect of the left hand wound dog bite injury. She is neurovascular intact. She does have pain with full extension and flexion of the left index finger. No clubbing or cyanosis. NEUROLOGICAL: Patient is alert and oriented x 3. Motor and sensory are also intact. Cranial nerves II through XII grossly intact. Symmetrical smile. Normal speech, normal gait. PSYCH: Normal mood, normal affect. SKIN: Warm, Dry, normal turgor. Patient has a single puncture wound noted to the base of the left index finger, this is approximately 0.5 cm in diameter, very mild drainage present. Dorsal aspect of left hand is erythematous, warm to the touch with multiple red streaks noted up into her left bicep area. Limitations: physical limitation Course Vital Signs 03/04/21 03/04/21 20:14 22:15 Temperature 97.9 F Pulse Rate 89 72 Respiratory 16 18 Rate Blood Pressure 145/96 135/90 O2 Sat by Pulse 95 100 Oximetry Medical Decision Making - Medical Decision Making Patient is a 51-year-old female here with a dog bite wound to the left hand that happened at approximate 6 PM yesterday. She went to urgent care this morning, received 1 g of Rocephin and was started on Augmentin, she took one dose. She came into the ER secondary to red streaks up her left arm. No fevers, her vitals are stable. He should has single puncture wound on the proximal aspect of the left index finger. She does have painful flexion and extension. X-rays reveal no acute fractures. Patient labs show a slight white count 11.6, no fevers. I discussed case with Jordan Hodgson who did agree to admission. Patient will be admitted under Dr. Alexander with ortho on consult. We will start her on Unasyn. Patient is in agreement with this plan of care. Case discussed with Dr. Olvera. - Lab Data Result diagrams: 03/04/21 20:49 03/04/21 20:49 Lab Results 03/04/21 03/04/21 Range/Units 20:49 20:49 WBC 11.6 H (3.8-10.6) k/uL RBC 4.26 (3.80-5.40) m/uL Hgb 12.9 (11.4-16.0) gm/dL Hct 38.2 (34.0-46.0) % MCV 89.7 (80.0-100.0) fL MCH 30.3 (25.0-35.0) pg MCHC 33.7 (31.0-37.0) g/dL RDW 13.6 (11.5-15.5) % Plt Count 325 (150-450) k/uL MPV 6.9 Neutrophils % 69 % Lymphocytes % 19 % Monocytes % 5 % Eosinophils % 5 % Basophils % 1 % Neutrophils # 8.0 H (1.3-7.7) k/uL Lymphocytes # 2.2 (1.0-4.8) k/uL Monocytes # 0.6 (0-1.0) k/uL Eosinophils # 0.6 (0-0.7) k/uL Basophils # 0.1 (0-0.2) k/uL ESR 15 (0-20) mm/hr Sodium 139 (137-145) mmol/L Potassium 3.7 (3.5-5.1) mmol/L Chloride 102 (98-107) mmol/L Carbon Dioxide 28 (22-30) mmol/L Anion Gap 9 mmol/L BUN 13 (7-17) mg/dL Creatinine 0.99 (0.52-1.04) mg/dL Est GFR (CKD-EPI)AfAm 76 (>60 ml/min/1.73 sqM) Est GFR (CKD-EPI)NonAf 66 (>60 ml/min/1.73 sqM) Glucose 156 H (74-99) mg/dL Calcium 9.7 (8.4-10.2) mg/dL Total Bilirubin 0.8 (0.2-1.3) mg/dL AST 21 (14-36) U/L ALT 34 (4-34) U/L Alkaline Phosphatase 67 (38-126) U/L C-Reactive Protein 3.3 H (<1.0) mg/dL Total Protein 7.1 (6.3-8.2) g/dL Albumin 4.5 (3.5-5.0) g/dL Disposition Clinical Impression: Dog bite, Cellulitis of left hand Disposition: ADMITTED IP TO THIS [facility] Condition: Stable Referrals: Shay Tidwell DO [Primary Care Provider] - 1-2 days Decision Date: 03/04/21 Decision Time: 22:57
[2021-03-04 21:11] LABS: Basophils # (A) 0.1 k/uL (0-0.2); Basophils % (A) 1 %; Eosinophils # (A) 0.6 k/uL (0-0.7); Eosinophils % (A) 5 %; HCT 38.2 % (34.0-46.0); HGB 12.9 gm/dL (11.4-16.0); Lymphocytes # (A) 2.2 k/uL (1.0-4.8); Lymphocytes % (A) 19 %; MCH 30.3 pg (25.0-35.0); MCHC 33.7 g/dL (31.0-37.0); MCV 89.7 fL (80.0-100.0); Mean Platelet Volume 6.9; Monocytes # (A) 0.6 k/uL (0-1.0); Monocytes % (A) 5 %; Neutrophils % (A) 69 %; Platelet Count 325 k/uL (150-450); RBC 4.26 m/uL (3.80-5.40); RDW 13.6 % (11.5-15.5); WBC 11.6 k/uL (3.8-10.6)
[2021-03-04 21:26] LABS: Albumin 4.5 g/dL (3.5-5.0); C Reactive Protein 3.3 mg/dL (<1.0); Calcium 9.7 mg/dL (8.4-10.2); Potassium 3.7 mmol/L (3.5-5.1); Total Bilirubin 0.8 mg/dL (0.2-1.3); Total Protein 7.1 g/dL (6.3-8.2)
--- NOTE | 2021-03-04 21:26 | XR ---
EXAMINATION TYPE: XR hand limited LT DATE OF EXAM: 03/04/2021 COMPARISON: NONE HISTORY: Norm bite. Pain. TECHNIQUE: 2 views FINDINGS: There is soft tissue swelling on the dorsum of the hand. The metacarpals are intact. There is deformity of the distal phalanx of the little finger with a large thin-walled cyst. There is sligh t expansion of the bone. There is soft tissue swelling around the proximal index finger. I see no fra cture. IMPRESSION: Soft tissue swelling. No fracture seen. Bone cyst at the distal phalanx of the little finger appears benign.
[2021-03-04] MEDS ORDERED: NALOXONE 0.4 MG/ML 1 ML VIAL IV PRN (22:53)
[2021-03-04] MEDS ORDERED: ACETAMINOPHEN TAB 325 MG TAB PO PRN (22:53)
[2021-03-04 22:54] LABS: Erythrocyte Sedimentation Rate 15 mm/hr (0-20)
[2021-03-04] MEDS ORDERED: AMPICILLIN-SULBACTAM 3 GM in SODIUM CHLORIDE 0.9% 100 ML IVPB STA (22:54)
[2021-03-05] MEDS: KETOROLAC 15 MG/ML 1 ML VIAL IVP PRN ×4 (01:05→20:53)
[2021-03-05] MEDS: lisinopriL 20 MG TAB PO SCH ×3 (02:16→20:53)
[2021-03-05] MEDS: ATORVASTATIN 80 MG TAB PO SCH ×2 (02:16→20:53)
[2021-03-05] MEDS: SERTRALINE 50 MG TAB PO SCH ×2 (02:16→20:53)
[2021-03-05] MEDS: AMPICILLIN-SULBACTAM 3 GM in SODIUM CHLORIDE 0.9% 100 ML IVPB SCH ×3 (06:07→17:18)
[2021-03-05 08:05] LABS: Glucose,Whole Blood 146 mg/dL (75-99)
--- NOTE | 2021-03-05 08:37 | P.CNOR ---
History of Present Illness - [facility] Consult date: 03/05/21 Consult reason: other (Left hand cellulitis, dog bite left hand) History of present illness: Patient is a 51-year-old female who presented to [facility] on 03/04/2021 due to left hand pain and redness. Patient states that she was bitten by her dog on 03/03/2021. Patient was evaluated by her primary care doctor after the incident, she was given a intramuscular injection of antibiotics and started on oral antibiotics, I believe this was Rocephin. The day after the initial bite, patient and continued to swell, the redness worsened and surgical history The arm toward the elbow. This prompted her to be evaluated [facility] emergency center. I was contacted last night by the emergency room physician assistant professor of mathematics, we discussed the case. I recommended admission to internal medicine with initiation of IV antibiotics, orthopedic team will be on consult for further evaluation. Patient was evaluated today at bedside, she was resting comfortably. Dr. Tanner was also available to examine the patient. She does most of discomfort on the dorsum of her hand, this is near the index finger at the MCP joint. She also has some swelling at the PIP joint of the left index finger. There is erythema and soft tissue swelling noted mainly on the dorsum of the hand. Erythema does track proximal up the forearm near the elbow. Patient is a type II diabetic, she utilizes oral medication for this. Patient denies any previous surgery involving the left upper extremity. She has no other orthopedic complaints at this time. She currently denies any headaches, lightheadedness, chest pain, shortness of breath, nausea vomiting, fever or chills, abdominal pain. Review of Systems Constitutional: Reports as per HPI Past Medical History Past Medical History: Chest Pain / Angina, Diabetes Mellitus, GERD/Reflux, Hyperlipidemia, Hypertension, Sleep Apnea/CPAP/BIPAP, Thyroid Disorder Additional Past Medical History / Comment(s): TMJ, neuropathy bilateral feet and occasioanly hands, thyroid nodule (not cancerous), Pt has type 2 diabetes. Pt has a CPAP started in December 2020. History of Any Multi-Drug Resistant Organisms: None Reported Past Surgical History: Bladder Surgery, Hysterectomy, Orthopedic Surgery, Tubal Ligation Additional Past Surgical History / Comment(s): R oophorectomy, bladder maco pension, ORIF R ankle, EGD with bx and colonoscopy. left foot Past Anesthesia/Blood Transfusion Reactions: Previous Problems w/ Anesthesia, Blood Transfusion Reaction Additional Past Anesthesia/Blood Transfusion Reaction / Comm: "hard time waking up". Pt received blood with hysterectomy. Pt had no reaction to blood products (Just lost too much blood durring surgery). Past Psychological History: Anxiety, Depression Additional Psychological History / Comment(s): Pt resides with her spouse and their two children, 15 yr old and 18 yr old. She is independent. Smoking Status: Never smoker Past Alcohol Use History: None Reported Past Drug Use History: Marijuana Additional Drug Use History / Comment(s): Pt states in the past she occasionally smoked marijuana but none for a long time. ABOUT 1 YEAR - Past Family History Father Family Medical History: Cancer, COPD, Diabetes Mellitus, GERD/Reflux, Hearing Disorder / Deafness, Hypertension, Osteoarthritis (OA), Pneumonia, Seizure Disorder, Thyroid Disorder Additional Family Medical History / Comment(s): Father had a stent placed in heart, had lots of heart issues, farther had some deafness with age. Sister(s) Family Medical History: Cancer Mother Family Medical History: COPD Additional Family Medical History / Comment(s): Mother of COPD at the age of 61 yrs. She was a smoker Medications and Allergies Home Medications Medication Instructions Recorded Confirmed Type Aspirin [Adult Low Dose Aspirin EC] 81 mg PO DAILY 08/05/18 03/04/21 History Enalapril [Vasotec] 20 mg PO BID 08/05/18 03/04/21 History Atorvastatin [Lipitor] 80 mg PO HS #30 tab 12/02/18 03/04/21 Rx Ezetimibe [Zetia] 10 mg PO DAILY #30 tab 12/02/18 03/04/21 Rx Nitroglycerin Sl Tabs [Nitrostat] 0.4 mg SUBLINGUAL Q5M PRN #25 tab 12/03/18 0 03/04/21 Rx Metoprolol Succinate (ER) [Toprol 25 mg PO DAILY 08/30/19 03/04/21 History XL] Amoxic-Pot Clav 875-125Mg 1 tab PO BID 03/04/21 03/04/21 History [Augmentin 875-125] Mupirocin 2% Oint [Bactroban 2% 1 applic TOPICAL BID 03/04/21 03/04/21 History Oint] Sertraline [Zoloft] 50 mg PO HS 03/04/21 03/04/21 History hydroCHLOROthiazide [Hydrodiuril] 25 mg PO DAILY 03/04/21 03/04/21 History metFORMIN HCL ER [Glucophage Xr] 1,000 mg PO W/SUPPER 03/04/21 03/04/21 History sitaGLIPtin PHOSPHATE [Januvia] 100 mg PO DAILY 03/04/21 03/04/21 History Allergies Allergy/AdvReac Type Severity Reaction Status Date / Time No Known Allergies Allergy Verified 03/04/21 23:14 Physical Examination Left upper extremity: There is a puncture wound noted near the MCP joint of the first digit on the left hand, this does trend into a near the webspace between the index and middle finger. There is notable erythema present in the area also on the dorsum of the hand, and does streak proximally up the forearm near the elbow. There is bruising noted at the PIP joint. Unable to appreciate any localized area of fluctuance. There is no erythema or areas of significant soft tissue swelling on the flexor aspect of the hand. She is able to wiggle all the fingers with minimal difficulty, making a fist does reproduce discomfort over the MCP and PIP joint of the index finger. Her sensation to light touch is intact throughout the left upper extremity. Her radial ulnar pulses are 2+. She is nontender with palpation involving the wrist, forearm, elbow, upper arm. Range of motion is intact with regards to wrist extension and flexion, elbow extension and flexion. No significant strength deficits were appreciated with regards to flexion and extension of all digits, wrist extension and flexion, elbow flexion and extension. Results - Labs Labs: Abnormal Lab Results - Last 24 Hours (Table) 03/04/21 03/04/21 03/05/21 Range/Units 20:49 20:49 08:02 WBC 11.6 H (3.8-10.6) k/uL Neutrophils # 8.0 H (1.3-7.7) k/uL Glucose 156 H (74-99) mg/dL POC Glucose (mg/dL) 146 H (75-99) mg/dL C-Reactive Protein 3.3 H (<1.0) mg/dL H & H 03/04/21 Range/Units 20:49 Hgb 12.9 (11.4-16.0) gm/dL Hct 38.2 (34.0-46.0) % Result Diagrams: 03/04/21 20:49 03/04/21 20:49 - Diagnostic results Wrist/Hand x-ray: report reviewed, image reviewed (Images and reports reviewed of the left hand. No acute osseous abnormalities are appreciated, this too could fractures or dislocations. No obvious foreign bodies were visualized) Assessment and Plan Assessment: Left hand, index finger dorsal puncture wound Left hand cellulitis Status post dog bite left hand Plan: Dr. Springer was available today to discuss treatment with the patient at bedside. We would like to continue with the IV antibiotics, she was started on Unasyn after arriving at the hospital, we will continue this at this time. Hibiclens soaks twice a day were ordered and discussed with nursing today Pain control, Tylenol or anti-inflammatories as needed Plan to continue the IV antibiotics for at least the next 24-48 hours, we will evaluate daily. If symptoms worsen or present is more of an abscess in the localized area, we will consider an incision and drainage with irrigation and debridement. Consult was placed for infectious disease for further recommendations Other director medical and recommendations Please contact our service with any further questions Time with Patient: Less than 30
[2021-03-05 11:59] LABS: Glucose,Whole Blood 268 mg/dL (75-99)
[2021-03-05] MEDS: INSULIN ASPART (NovoLOG) 100 UNIT/ML VIAL SQ SCH ×3 (12:42→20:53)
[2021-03-05] MEDS ORDERED: NITROGLYCERIN SL TABS 0.4 MG TAB SUBLINGUAL PRN (13:52)
--- NOTE | 2021-03-05 14:51 | HP ---
HISTORY AND PHYSICAL DATE OF SERVICE: 03/05/2021 CHIEF COMPLAINTS: Pain and swelling of the left hand. HISTORY OF PRESENT ILLNESS: This 51-year-old woman with a past history of diabetes and GERD, hypertension, hyperlipidemia, sleep apnea, being followed by Dr. Shay Tidwell in the outpatient setting was admitted with dog bite. The patient apparently was bitten by the patient's dog a couple days ago. The patient was trying to take the feed from the dog and the dog apparently accidentally bit her with 1 tooth. The dog is up to date with injections. The patient had progressive swelling and pain and because of lack of response to outpatient treatment with antibiotics, the patient came to [facility] and was admitted to the hospital for further evaluation and treatment. Dr. Springer from Orthopedic surgery seen the patient and hand x-ray was done which I reviewed personally which showed no soft tissue swelling and bone cyst was noted. Otherwise it was unremarkable. There is no history of fever, rigors, no history of headache, loss of consciousness or seizures. Patient is complaining of severe pain and swelling of the left hand of the left dorsum of the hand, palmar aspect, wrist and as well as extending to some part of the forearm also. Some streaking also noted. PAST MEDICAL HISTORY: History of diabetes, GERD, hypertension, sleep apnea. MEDICATIONS: Zoloft, Glucophage, Ativan, Januvia, HydroDIURIL, Zetia, Augmentin, Nitrostat, Toprol- XL, Vaseretic, Lipitor and aspirin. Doses are reviewed. ALLERGIES: None. FAMILY HISTORY: History of COPD, diabetes, hypertension, DJD, multiple other medical problems in the family. SOCIAL HISTORY: No history of smoking. Occasional alcohol intake. REVIEW OF SYSTEMS: ENT: No diminished vision. No diminished hearing. CARDIOVASCULAR SYSTEM: No angina, palpitations. RESPIRATORY: No cough. No hemoptysis. GI: No nausea, vomiting. no dysuria. NERVOUS SYSTEM: No numbness or weakness. ALLERGY/IMMUNOLOGY: No asthma or hayfever. MUSCULOSKELETAL as mentioned earlier. HEMATOLOGY/ONCOLOGY: No history of anemia. ENDOCRINE: As mentioned earlier. CONSTITUTIONAL: As mentioned earlier. DERMATOLOGY as mentioned earlier. RHEUMATOLOGY: Negative. PSYCHIATRY: As mentioned earlier. PHYSICAL EXAMINATION: Alert and oriented x3. Pulse is 84. Blood pressure 138/83, respiration 18, temperature 97.9, pulse ox 94% on room air. HEENT is conjunctivae normal. Oral mucosa moist. NECK is no jugular venous distention. CARDIOVASCULAR: S1, S2 normal. No S3, no S4. RESPIRATORY: Breath sounds diminished in the bases. No rhonchi. No crackles. ABDOMEN: Soft, nontender. No mass palpable. LEGS: No edema. No swelling. NERVOUS SYSTEM: Higher functions as mentioned earlier. Otherwise no focal motor or sensory deficit. LYMPHATICS: No lymph nodes palpable in the neck, axillae or groin. SKIN: Examination of the left hand significant pain and swelling and tenderness and movement of the index finger is also affected. Severe tenderness puncture cooper is noted. Some surrounding erythema and cellulitis in the left wrist and also including the distal forearm also. LAB: At this time: WBC 11.7, hemoglobin 12.9, glucose 156. ASSESSMENT: 1. Severe significant cellulitis of the left hand status post dog bite with SARS. 2. Increased WBC. 3. Severe pain. 4. Failure of outpatient treatment. 5. History of diabetes type 2. 6. GERD. 7. Hypertension. 8. Hyperlipidemia. 9. Sleep apnea. 10.Hypothyroidism. 11.History of temporomandibular joint syndrome. 12.Peripheral neuropathy. 13.History of bladder surgery. 14.History of hysterectomy. 15.History of anxiety, depression. 16.FULL CODE. RECOMMENDATIONS AND DISCUSSION: This 51-year-old woman who presented with multiple medical issues, at this time I recommend to continue current medications, symptomatic treatment. Continue broad spectrum IV antibiotics. Orthopedic evaluation. Infectious Disease evaluation. Resume the home medications. Pain medications. The prognosis guarded because of multiple complex medical issues. Further recommendations to follow. A copy of dictation being forwarded to Dr. Shay Tidwell, who is the primary physician. No surgical acute surgical intervention is planned at this time by Orthopedic Surgery, but we will continue to monitor and monitor the patient and the response to IV antibiotic. MMODL / IJN: [id number] /
[2021-03-05] MEDS: HEPARIN SODIUM,PORCINE/PF 5,000 UNIT/0.5 ML SYRINGE SQ SCH (14:52)
[2021-03-05 16:43] LABS: Glucose,Whole Blood 152 mg/dL (75-99)
[2021-03-05 20:35] LABS: Glucose,Whole Blood 200 mg/dL (75-99)
[2021-03-05] MEDS: metFORMIN 500 MG TAB PO SCH (20:52)
--- NOTE | 2021-03-05 21:48 | CONS ---
CONSULTATION DATE OF SERVICE: 03/05/2021 REASON FOR CONSULTATION: Left hand dog bite cellulitis. HISTORY OF PRESENT ILLNESS: The patient is a 51-year-old female who has been bitten by her pet dog on Wednesday, the patient did have significant bleeding. The patient did wash out the area and iced it for about an hour. The next morning that was yesterday morning, when she woke up, she did have significant swelling and pain to the left hand. The patient described the pain to be throbbing, intensity almost 10 out of 10. The patient went to an Urgent Care and the patient did receive a dose of IV IM antibiotic in her gluteal area and she was given oral Augmentin. By yesterday evening, the patient did have significant worsening of the pain and swelling along with the redness for which the patient did present to [facility] ER. On arrival to the ER, the patient was afebrile. The patient did have white count of 11.6 with a left shift. Creatinine was normal. Ritter PCR was negative. The patient did have x-rays of the hand, soft tissue swelling. No fractures seen. Bone cyst at the distal phalanx of the little finger appears benign. The patient has been started on Unasyn. Infectious disease was consulted for further management of antibiotic therapy. REVIEW OF SYSTEMS: Positive points have been mentioned in HPI. Rest of the systems are negative. PAST MEDICAL HISTORY: Hypertension, hyperlipidemia, gastroesophageal reflux disease, hypothyroidism. PAST SURGICAL HISTORY: Bladder surgery, hysterectomy, tubal ligation, ORIF right ankle, EGD with biopsy and colonoscopy. SOCIAL HISTORY: Denies smoking, drinking, did admit to marijuana use. FAMILY HISTORY: Father with history of cancer. Mother history of COPD. ALLERGIES: No known drug allergies. MEDICATIONS: The patient is currently on Tylenol, Waldron, Xanax, Unasyn 3 grams q.6 hours. She is on aspirin, Lipitor, Zetia, hydrochlorothiazide, Dilaudid, Motrin, NovoLog, Zestril, Glucophage, Toprol-XL, Narcan, Nitrostat and Zofran. PHYSICAL EXAMINATION: Blood pressure is 127/86, pulse of 80, temperature 98. She is 93% on room air. General description: The patient is a middle-aged female lying in bed in no distress. No tachypnea or accessory muscles of respiration use. HEENT: Examination shows no pallor or scleral icterus. Oral mucous membranes dry. NECK: Trachea central. No thyromegaly. LUNGS unlabored breathing. Clear to auscultation anteriorly. No wheeze or crackles. HEART S1, S2. Regular rate and rhythm. ABDOMEN: Soft, no tenderness. No guarding. No rigidity. EXTREMITIES: No edema of the feet. Examination of the left hand did have swelling with wound at the base of the index finger. No significant redness, foul smelling drainage. NEUROLOGICAL: Patient is awake, alert, oriented x3. Mood and affect normal. LABS: Hemoglobin is 12.8, white count 11.6, BUN of 13, creatinine 0.99. CRP 3.3. X-ray report as mentioned above. Blood culture so far negative. DIAGNOSTIC IMPRESSION AND PLAN: Patient with left hand dog bite cellulitis with extensive swelling and redness. Will need to cover for the oral eunice of the including pasteurella and elevated eunice. PLAN: 1. Unasyn 3 g IV q.6 hours continue. 2. We will follow on clinical condition to further adjust medication if needed. Thank you for this consultation. Will follow this patient along with you. MMODL / IJN: [id number] /
[2021-03-05] MEDS: TEMAZEPAM 15 MG CAP PO PRN (22:48)
[2021-03-05] MEDS: MUPIROCIN 2% OINT 22 GM TUBE TOPICAL SCH (22:48)
[2021-03-06] MEDS: HEPARIN SODIUM,PORCINE/PF 5,000 UNIT/0.5 ML SYRINGE SQ SCH ×2 (00:33→14:22)
[2021-03-06] MEDS: AMPICILLIN-SULBACTAM 3 GM in SODIUM CHLORIDE 0.9% 100 ML IVPB SCH ×4 (00:33→17:14)
[2021-03-06 06:44] LABS: Glucose,Whole Blood 128 mg/dL (75-99)
[2021-03-06] MEDS: INSULIN ASPART (NovoLOG) 100 UNIT/ML VIAL SQ SCH ×4 (06:56→22:35)
--- NOTE | 2021-03-06 08:35 | P.PN ---
Subjective Progress Note Date: 03/06/21 Principal diagnosis: Left hand/arm cellulitis Left hand dorsal puncture wound, status post right Patient was evaluated today at bedside, Dr. Springer was also be available to examine the patient. Patient's symptoms seem to have improved overnight. The erythema around the hand and forearm has improved. Swelling is also seemed to improve slightly. Patient is able to wiggle the fingers and also move the hand and wrist with better motion. She still notes mainly discomfort near the MCP joint of the first digit, left hand, and the bruising noted near the PIP joint. She denies any fevers or chills at this time. She has not shortness of breath or chest pain at this time. Objective - Vital Signs Vital signs: Vital Signs Temp 98.4 F 03/06/21 08:00 Pulse 86 03/06/21 08:00 Resp 14 03/06/21 08:00 BP 144/88 03/06/21 08:00 Pulse Ox 94 L 03/06/21 08:00 Intake & Output 03/05/21 03/06/21 03/06/21 18:59 06:59 18:59 Other: Voiding Method Toilet Toilet # Voids 3 2 - Exam Left upper extremity: There is a puncture wound noted near the MCP joint of the first digit on the left hand, this does trend into a near the webspace between the index and middle finger. Erythema on the dorsum of the hand has improved, along with streaking ertythema. There is bruising noted at the PIP joint. Unable to appreciate any localized area of fluctuance. There is no erythema or areas of significant soft tissue swelling on the flexor aspect of the hand. She is able to wiggle all the fingers with minimal difficulty, making a fist does reproduce discomfort over the MCP and PIP joint of the index finger. Her sensation to light touch is intact throughout the left upper extremity. Her radial ulnar pulses are 2+. She is nontender with palpation involving the wrist, forearm, elbow, upper arm. Range of motion is intact with regards to wrist extension and flexion, elbow extension and flexion. No significant strength deficits were appreciated with regards to flexion and extension of all digits, wrist extension and flexion, elbow flexion and extension. - Labs CBC & Chem 7: 03/04/21 20:49 03/04/21 20:49 Labs: Abnormal Lab Results - Last 24 Hours (Table) 03/05/21 03/05/21 03/05/21 Range/Units 11:44 16:40 20:34 POC Glucose (mg/dL) 268 H 152 H 200 H (75-99) mg/dL 03/06/21 Range/Units 06:42 POC Glucose (mg/dL) 128 H (75-99) mg/dL Microbiology - Last 24 Hours (Table) 03/04/21 20:49 Blood Culture - Preliminary Blood No Growth after 24 hours Assessment and Plan Assessment: Left hand, index finger dorsal puncture wound Left hand cellulitis Status post dog bite left hand Plan: Dr. Springer was available today to discuss treatment with the patient at bedside. Plan is to continue with IV antibiotics and Hibiclens soaks at this time. Patient will be tentatively boarded for an irrigation and debridement procedure for 03/07/2021. If there continues to be significant improvement on 03/07/2021 at the assessment, we'll likely postpone surgery. Pain control, Tylenol or anti-inflammatories as needed Other medical specialty recommendations Reevaluate morning of 03/07/2021, please contact our service with any further questions Time with Patient: Less than 30
[2021-03-06] MEDS: PANTOPRAZOLE 40 MG TABLET PO SCH (08:41)
[2021-03-06] MEDS: lisinopriL 20 MG TAB PO SCH ×2 (08:41→22:35)
[2021-03-06] MEDS: hydroCHLOROthiazide 25 MG TAB PO SCH (08:42)
[2021-03-06] MEDS: metFORMIN 500 MG TAB PO SCH ×2 (08:42→22:35)
[2021-03-06] MEDS: EZETIMIBE 10 MG TAB PO SCH (08:42)
[2021-03-06] MEDS: METOPROLOL SUCCINATE (ER) 25 MG TAB.ER.24H PO SCH (08:42)
[2021-03-06] MEDS: ASPIRIN 81 MG PO SCH (08:42)
[2021-03-06] MEDS: LINAGLIPTIN 5 MG TABLET PO SCH (08:42)
[2021-03-06] MEDS: MUPIROCIN 2% OINT 22 GM TUBE TOPICAL SCH ×2 (08:42→22:35)
[2021-03-06] MEDS: KETOROLAC 15 MG/ML 1 ML VIAL IVP PRN ×3 (08:45→22:36)
[2021-03-06 09:03] LABS: Basophils % (A) 1 %; Eosinophils # (A) 0.4 k/uL (0-0.7); Eosinophils % (A) 5 %; HCT 35.1 % (34.0-46.0); HGB 12.1 gm/dL (11.4-16.0); Lymphocytes # (A) 2.1 k/uL (1.0-4.8); Lymphocytes % (A) 29 %; MCH 31.1 pg (25.0-35.0); MCHC 34.4 g/dL (31.0-37.0); MCV 90.3 fL (80.0-100.0); Mean Platelet Volume 6.9; Monocytes # (A) 0.3 k/uL (0-1.0); Monocytes % (A) 4 %; Neutrophils # (A) 4.4 k/uL (1.3-7.7); Neutrophils % (A) 60 %; Platelet Count 297 k/uL (150-450); RBC 3.88 m/uL (3.80-5.40); RDW 13.8 % (11.5-15.5); WBC 7.3 k/uL (3.8-10.6)
[2021-03-06 09:09] LABS: African American GFR (CKD) >90 (>60 ml/min/1.73 sqM); Anion Gap 8 mmol/L; Blood Urea Nitrogen 9 mg/dL (7-17); Calcium 9.1 mg/dL (8.4-10.2); Carbon Dioxide 26 mmol/L (22-30); Chloride 106 mmol/L (98-107); Glucose 134 mg/dL (74-99); Non-African American GFR(CKD) >90 (>60 ml/min/1.73 sqM); Potassium 4.1 mmol/L (3.5-5.1); Sodium 140 mmol/L (137-145)
[2021-03-06 11:12] LABS: Glucose,Whole Blood 191 mg/dL (75-99)
--- NOTE | 2021-03-06 16:43 | PN ---
PROGRESS NOTE DATE OF SERVICE: 03/06/2021 This 51-year-old woman who was admitted with pain and swelling of the right hand, is being closely monitored. No chest pain. No palpitations. The swelling is slightly better but erythema persists. The cultures are negative so far. The patient is on broad-spectrum IV antibiotics. Infectious Disease following the patient closely. PHYSICAL EXAMINATION: Alert and oriented x3. Pulse 86, blood pressure 140/80, respiration 14, temperature is ( ), pulse ox 94% on room air. HEENT: Conjunctivae normal. Oral mucosa moist. NECK: No jugular venous distention. No lymph node enlargement. CARDIOVASCULAR: S1, S2, muffled. No S3, no S4, RESPIRATORY: Diminished breath sounds at the bases. No rhonchi, no crackles. ABDOMEN: Soft, nontender. LEGS: No edema, no swelling. NERVOUS SYSTEM: No focal deficits. Examination of the hand: Pain, swelling, erythema and tenderness present. LABS: CBC within normal limits. Glucose 134 and 191. ASSESSMENT: 1. Severe significant cellulitis of the left hand status post dog bite with SIRS and failure of outpatient treatment. 2. Increased WBC. 3. Left arm pain, severe. 4. History of diabetes type 2. 5. GERD. 6. Hypertension. 7. Hyperlipidemia. 8. History of sleep apnea. 9. Hypothyroidism. 10.History of temporomandibular joint syndrome. 11.Peripheral neuropathy. 12.History of bladder surgery. 13.History of hysterectomy. 14.History of anxiety, depression. 15.FULL CODE. RECOMMENDATIONS: Recommend to continue current management and continue symptomatic treatment. Continue the antibiotics. Otherwise, follow closely with Orthopedic Surgery. Possible incision and drainage. Guarded prognosis. Further recommendations to follow. MMODL / IJN: [id number] /
[2021-03-06 16:48] LABS: Glucose,Whole Blood 163 mg/dL (75-99)
[2021-03-06 22:28] LABS: Glucose,Whole Blood 159 mg/dL (75-99)
[2021-03-06] MEDS: ATORVASTATIN 80 MG TAB PO SCH (22:34)
[2021-03-06] MEDS: TEMAZEPAM 15 MG CAP PO PRN (22:35)
[2021-03-06] MEDS: SERTRALINE 50 MG TAB PO SCH (22:35)
--- NOTE | 2021-03-06 23:42 | PN ---
PROGRESS NOTE DATE OF SERVICE: 03/06/2021 REASON FOR FOLLOWUP: Left hand dog bite cellulitis. INTERVAL HISTORY: Patient is afebrile. The patient is breathing comfortably, left hand swelling and redness has slightly decreased. No chest pain, shortness of breath or cough. No abdominal pain. No diarrhea. PHYSICAL EXAMINATION: Blood pressure 151/87, pulse of 69, temperature 98.4. She is 94% on room air. General description: The patient is a middle-aged female lying in bed in no distress. Respiratory system: Unlabored breathing, clear to auscultation anteriorly. Heart S1, S2. Regular rate and rhythm. ABDOMEN: Soft, no tenderness. Left hand swelling and redness has slightly decreased. LABS: Hemoglobin is 12.1, white count 7.3, BUN of 18, creatinine 0.63. Blood culture has been negative. DIAGNOSTIC IMPRESSION AND PLAN: Patient with left hand dog bite cellulitis. Patient clinically responding to Unasyn, this will be continued for another 24 before transition to oral antibiotics and continue supportive care. MMODL / IJN: [id number] /
[2021-03-07] MEDS: AMPICILLIN-SULBACTAM 3 GM in SODIUM CHLORIDE 0.9% 100 ML IVPB SCH ×4 (00:10→18:00)
[2021-03-07] MEDS: HEPARIN SODIUM,PORCINE/PF 5,000 UNIT/0.5 ML SYRINGE SQ SCH ×2 (01:56→13:39)
[2021-03-07 06:38] LABS: Glucose,Whole Blood 133 mg/dL (75-99)
--- NOTE | 2021-03-07 08:15 | P.PN ---
Subjective Progress Note Date: 03/07/21 Principal diagnosis: Left hand/arm cellulitis Left hand dorsal puncture wound, status post right Patient was evaluated today at bedside, Dr. Springer was also be available to examine the patient. Patient states that the symptoms in the proximal hand, wrist and forearm have improved. She still has discomfort index finger left hand. She does also have some tenderness at the PIP joint that was noted on prior exam. She denies any fevers or chills at this time. She has not shortness of breath or chest pain at this time. Objective - Vital Signs Vital signs: Vital Signs Temp 98.3 F 03/07/21 07:49 Pulse 73 03/07/21 07:49 Resp 15 03/07/21 07:49 BP 142/84 03/07/21 07:49 Pulse Ox 94 L 03/07/21 07:49 Intake & Output 03/06/21 03/07/21 03/07/21 18:59 06:59 18:59 Other: Voiding Method Toilet # Voids 4 2 # Bowel Movements 4 - Exam Left upper extremity: There is a puncture wound noted near the MCP joint of the first digit on the left hand, this does trend into a near the webspace between the index and middle finger. The bruising is still present at the PIP joint. The puncture wound continues to demonstrate erythema around the borders, there is some purulent material noted on exam today. Her sensation to light touch is intact throughout the left upper extremity. Her radial ulnar pulses are 2+. She is nontender with palpation involving the wrist, forearm, elbow, upper arm. Range of motion is intact with regards to wrist extension and flexion, elbow extension and flexion. No significant strength deficits were appreciated with regards to flexion and extension of all digits, wrist extension and flexion, elbow flexion and extension. - Labs CBC & Chem 7: 03/06/21 08:08 03/06/21 08:08 Labs: Abnormal Lab Results - Last 24 Hours (Table) 03/06/21 03/06/21 03/06/21 Range/Units 08:08 11:11 16:47 Glucose 134 H (74-99) mg/dL POC Glucose (mg/dL) 191 H 163 H (75-99) mg/dL 03/06/21 03/07/21 Range/Units 22:26 06:36 Glucose (74-99) mg/dL POC Glucose (mg/dL) 159 H 133 H (75-99) mg/dL Microbiology - Last 24 Hours (Table) 03/04/21 20:49 Blood Culture - Preliminary Blood No Growth after 48 hours Assessment and Plan Assessment: Left hand, index finger dorsal puncture wound Left hand cellulitis Status post dog bite left hand Plan: With the area at the puncture wound not improving significantly, and also with the purulent drainage noted in that area we feel that surgical intervention would be best warranted at this time. Patient was made nothing by mouth last night. We will like to proceed with an irrigation and debridement of the left hand on 03/07/2021. Risk and benefits of the procedure were discussed with patient, she is in good understanding and would like to proceed. Obtain consent Continue by mouth diet at this time Pain control, Tylenol or anti-inflammatories as needed Other medical specialty recommendations Further recommendations to follow Time with Patient: Less than 30
[2021-03-07] MEDS: INSULIN ASPART (NovoLOG) 100 UNIT/ML VIAL SQ SCH ×4 (09:29→22:22)
[2021-03-07] MEDS: hydroCHLOROthiazide 25 MG TAB PO SCH (09:41)
[2021-03-07] MEDS: PANTOPRAZOLE 40 MG TABLET PO SCH (09:41)
[2021-03-07] MEDS: EZETIMIBE 10 MG TAB PO SCH (09:42)
[2021-03-07] MEDS: lisinopriL 20 MG TAB PO SCH ×2 (09:47→22:21)
[2021-03-07] MEDS: ASPIRIN 81 MG PO SCH (09:47)
[2021-03-07] MEDS: METOPROLOL SUCCINATE (ER) 25 MG TAB.ER.24H PO SCH (09:47)
[2021-03-07] MEDS: MUPIROCIN 2% OINT 22 GM TUBE TOPICAL SCH ×2 (09:47→22:22)
[2021-03-07] MEDS: KETOROLAC 15 MG/ML 1 ML VIAL IVP PRN ×2 (09:53→18:08)
[2021-03-07 11:33] LABS: Glucose,Whole Blood 131 mg/dL (75-99)
[2021-03-07] MEDS: IV FLUID CONTINUATION 1,000 ML IV ONE ×2 (15:27→17:19)
[2021-03-07 15:35] LABS: Glucose,Whole Blood 118 mg/dL (75-99)
[2021-03-07] MEDS ORDERED: MIDAZOLAM 2 MG/2 ML VIAL ONE (15:35)
[2021-03-07] MEDS ORDERED: LIDOCAINE 1% INJ 10MG/ML (20 ML MDV) ONE (15:35)
[2021-03-07] MEDS ORDERED: fentaNYL (PF) 50 MCG/ML 2 ML AMP ONE (15:35)
[2021-03-07] MEDS ORDERED: PROPOFOL 10 MG/ML 20 ML VIAL IV ONE (15:35)
[2021-03-07] MEDS ORDERED: IV FLUID CONTINUATION 1,000 ML IV ONE (15:41)
[2021-03-07] MEDS ORDERED: BUPIVACAINE (PF) 0.25% 30 ML VIAL SQ ONE (15:56)
[2021-03-07] MEDS ORDERED: BACITRACIN OINT 1 EACH PACKET TOPICAL ONE (16:10)
[2021-03-07 16:39] LABS: Glucose,Whole Blood 111 mg/dL (75-99)
[2021-03-07] MEDS: LINAGLIPTIN 5 MG TABLET PO SCH (17:19)
[2021-03-07] MEDS: metFORMIN 500 MG TAB PO SCH ×2 (17:19→22:21)
[2021-03-07] MEDS: HYDROmorphone 0.5 MG/0.5 ML SYRINGE IVP PRN (17:59)
[2021-03-07] MEDS: SODIUM CHLORIDE 0.9% 1,000 ML IV SCH (18:00)
[2021-03-07] MEDS: ONDANSETRON 4 MG/2 ML VIAL IVP PRN (18:08)
--- NOTE | 2021-03-07 19:02 | P.OP ---
Date of Procedure: 03/07/21 Preoperative Diagnosis: 1. dog fight bite L hand over MCP joint 2. Cellulitis L hand Postoperative Diagnosis: 1. dog fight bite L hand over MCP joint 2. Cellulitis L hand Procedure(s) Performed: 1. Irrigation and debridment skin and soft tissue Left hand using the following -Knife used to extend incisions and remove necrotic skin -Curettes used to scrape soft tissues Implants: none Anesthesia: MAC, local Surgeon: Petey Springer Estimated Blood Loss (ml): 20 IV fluids (ml): 400 Urine output (ml): 0 Pathology: none sent Condition: stable Disposition: PACU Indications for Procedure: 51 yo female sustained dog bite to left hand and index finger. Puncture wound over the LIF MCP joint. Cellulitis developed and there was purulent drainage ffrom the bite. She was started by PCP on ABx but this got worse. She was admitted for IVABX. It was improving but the wound was still drianing a lot of purulent material and she was painful there. This was also over the MCP joint making it suspicious for a "fight bite" type injury. We discussed with the patient and she elected to undergo I&D to wash this area and explore to make sure no MCP joint involvement. She understood all the risks of surgery and was willing to assume these risks. She was willing to proceed. Description of Procedure: The patient was seen and examined in the preoperative area. All preoperative protocols were followed. Informed consent was obtained risks and benefits of the procedure were discussed at length. Risks including bleeding infection damage to the surrounding tissue and risk of reoperation were discussed with the patient. Risk of anesthesia up to and including was a discussed with the patient. These are outlined in the risk reviewed. They were willing to accept these risks and all of the risks of surgery. The patient was given a weight- based dose of antibiotics in the form of patient has been on Unasyn on the floor and was just dosed with this]. The patient was seen and evaluated by the anesthesia team who deemed them fit for surgery. The site was marked, the patient was willing to proceed with the procedure. The patient was transferred to the operative suite by the Department of anesthesia. There were then drifted off to sleep by the department of anesthesia and sedation with localanesthesia was used. Once adequate anesthesia had been obtained the patient was carefully transferred to the operative bed. All bony prominences were padded accordingly. SCDs were placed on the nonoperative lower extremities. Arms were well padded. left upper extremity was exposed and placed on an arm board well-padded Preoperative briefing was done with the operative team and everyone was ready for the procedure to start. The patients left armwas then prepped and draped in the normal sterile fashion. Timeout was then performed and all parties in agreement with the procedure to be performed. the area was infiltrated with quarter percent Marcaine without epinephrine. there was a 1 cm puncture wound just distal to the MCP joint on the left-hand side on the ulnar border of the index finger and between the index and middle finger did not travel deep and extended this incision proximally over the MCP joint to explore the MCP joint capsule. Blunt dissection was used to explore this area the joint capsule was completely intact in this area there is no evidence of puncture of the joint capsular inoculation sagittal bands were intact. There is purulent material that came from the distal aspect of this and this was debrided with a curet as well as a knife which was used to freshen skin edges were then copiously irrigated the area with antibiotic saline 3 L once this was accomplished we placed interrupted loose 5-0 chronic stitches. The edges approximated very well and there were no complications. The patient was then transferred back to their hospital bed. There were awakened by department of anesthesia having tolerated the procedure very well with no complications. The patient was then transported to the postoperative care unit in stable condition.
--- NOTE | 2021-03-07 19:59 | PN ---
PROGRESS NOTE DATE OF SERVICE: 03/07/2021 REASON FOR FOLLOWUP: Left hand dog bite cellulitis. INTERVAL HISTORY: Patient is afebrile. The patient is breathing comfortably. The patient's left hand pain and swelling has much improved. No drainage. Patient denies any chest pain, shortness or cough. No abdominal pain or diarrhea. PHYSICAL EXAMINATION: Her blood pressure is 140/97, pulse of 70, temperature of 98.6. She is 95% on room air. General description is a middle-aged female up in the room in no distress. Respiratory system: Unlabored breathing, clear to auscultation anteriorly. Heart S1, S2. Regular rate and rhythm. ABDOMEN: Soft, no tenderness. Left hand swelling has much improved, no drainage. LABS: No new labs have been obtained today. DIAGNOSTIC IMPRESSION AND PLAN: Patient with left hand dog bite cellulitis and this patient did have overall improvement with IV Unasyn, to continue. Finish therapy with oral Augmentin and close outpatient followup. MMODL / IJN: [id number] /
[2021-03-07 22:15] LABS: Glucose,Whole Blood 259 mg/dL (75-99)
[2021-03-07] MEDS: HYDROcodone/APAP 5-325MG 1 EACH TAB PO PRN (22:20)
[2021-03-07] MEDS: IBUPROFEN 400 MG TAB PO PRN (22:21)
[2021-03-07] MEDS: ATORVASTATIN 80 MG TAB PO SCH (22:21)
[2021-03-07] MEDS: SERTRALINE 50 MG TAB PO SCH (22:21)
[2021-03-08] MEDS: AMPICILLIN-SULBACTAM 3 GM in SODIUM CHLORIDE 0.9% 100 ML IVPB SCH ×4 (00:45→17:25)
[2021-03-08] MEDS: HYDROmorphone 0.5 MG/0.5 ML SYRINGE IVP PRN (00:45)
[2021-03-08] MEDS: ONDANSETRON 4 MG/2 ML VIAL IVP PRN (00:46)
[2021-03-08] MEDS: HEPARIN SODIUM,PORCINE/PF 5,000 UNIT/0.5 ML SYRINGE SQ SCH ×2 (00:46→14:33)
[2021-03-08] MEDS: HYDROcodone/APAP 5-325MG 1 EACH TAB PO PRN ×2 (06:03→14:33)
[2021-03-08] MEDS: SODIUM CHLORIDE 0.9% 1,000 ML IV SCH ×2 (06:04→21:29)
[2021-03-08 07:15] LABS: Glucose,Whole Blood 123 mg/dL (75-99)
--- NOTE | 2021-03-08 07:44 | P.PN ---
Subjective Progress Note Date: 03/08/21 Principal diagnosis: Left hand/arm cellulitis Left hand dorsal puncture wound, status post right Patient was evaluated today at bedside, she is resting comfortably. She has no acute pain. She denies any fevers or chills at this time. She has not shortness of breath or chest pain at this time. Objective - Vital Signs Vital signs: Vital Signs Temp 97.7 F 03/08/21 02:00 Pulse 75 03/08/21 02:00 Resp 17 03/08/21 02:00 BP 100/65 03/08/21 02:00 Pulse Ox 95 03/08/21 02:00 Intake & Output 03/07/21 03/08/21 03/08/21 18:59 06:59 18:59 Intake Total 750 Output Total 5 Balance 745 Weight 97.976 kg Intake: IV 750 Output: Estimated Blood Loss 5 Other: Voiding Method Toilet # Voids 2 1 - Exam Left upper extremity: Postoperative bandage is in good position and condition. Minimal soft tissue sw elling present in the fingers. Sensory exam to light touch both proximal distal to the splinter intact. Cap refill is less than 2 seconds She is nontender with palpation involving the wrist, forearm, elbow, upper arm. Range of motion is intact with regards to wrist extension and flexion, elbow e xtension and flexion. No significant strength deficits were appreciated with regards to flexion and extension of all digits, wrist extension and flexion, elbow flexion and extension. - Labs CBC & Chem 7: 03/06/21 08:08 03/06/21 08:08 Labs: Abnormal Lab Results - Last 24 Hours (Table) 03/07/21 03/07/21 03/07/21 Range/Units 11:32 15:26 16:37 POC Glucose (mg/dL) 131 H 118 H 111 H (75-99) mg/dL 03/07/21 03/08/21 Range/Units 22:13 07:13 POC Glucose (mg/dL) 259 H 123 H (75-99) mg/dL Microbiology - Last 24 Hours (Table) 03/04/21 20:49 Blood Culture - Preliminary Blood No Growth after 72 hours Assessment and Plan Assessment: Status post irrigation and debridement left hand Left hand, index finger dorsal puncture wound Left hand cellulitis Status post dog bite left hand Plan: Patient is doing well at this time. Infectious disease has recommended oral course of Augmentin to finish antibiotic treatment. Wound care instructions were discussed with patient Pain control, she will utilize Tylenol and Motrin at home Other medical facilities section director recommendations Plan for discharge home today Time with Patient: Less than 30
[2021-03-08] MEDS: INSULIN ASPART (NovoLOG) 100 UNIT/ML VIAL SQ SCH ×4 (09:43→21:50)
[2021-03-08] MEDS: hydroCHLOROthiazide 25 MG TAB PO SCH (09:47)
[2021-03-08] MEDS: metFORMIN 500 MG TAB PO SCH ×2 (09:47→21:49)
[2021-03-08] MEDS: LINAGLIPTIN 5 MG TABLET PO SCH (09:48)
[2021-03-08] MEDS: ASPIRIN 81 MG PO SCH (09:48)
[2021-03-08] MEDS: lisinopriL 20 MG TAB PO SCH ×2 (09:48→21:49)
[2021-03-08] MEDS: METOPROLOL SUCCINATE (ER) 25 MG TAB.ER.24H PO SCH (09:48)
[2021-03-08] MEDS: EZETIMIBE 10 MG TAB PO SCH (09:49)
[2021-03-08] MEDS: PANTOPRAZOLE 40 MG TABLET PO SCH (09:49)
[2021-03-08] MEDS: MUPIROCIN 2% OINT 22 GM TUBE TOPICAL SCH ×2 (09:55→21:50)
[2021-03-08 11:28] LABS: Glucose,Whole Blood 182 mg/dL (75-99)
--- NOTE | 2021-03-08 13:21 | P.PN ---
Subjective Progress Note Date: 03/07/21 Principal diagnosis: Left hand dog bite cellulitis 51-year-old female patient admitted to the hospital with left hand pain and swelling after doubt bite; patient showed some worsening of the local wound with drainage; hence surgery on board and recommending incision and irrigation of the wound with plans to continue IV Unasyn; ID recommended patient could be discharged on oral Augmentin with close outpatient follow-up Patient remains afebrile with temperature of 98.6, pulse 70, blood pressure 140/97 Plan for incision and irrigation this morning Objective - Vital Signs Vital signs: Vital Signs Temp 98.3 F 03/07/21 07:49 Pulse 73 03/07/21 07:49 Resp 15 03/07/21 07:49 BP 142/84 03/07/21 07:49 Pulse Ox 94 L 03/07/21 07:49 Intake & Output 03/06/21 03/07/21 03/07/21 18:59 06:59 18:59 Other: Voiding Method Toilet # Voids 4 2 # Bowel Movements 4 - Exam - Constitutional General appearance: Present: average body habitus, cooperative, no acute distress - EENT Eyes: Present: anicteric sclerae, EOMI, PERRLA, normal appearance ENT: Present: hearing grossly normal, normal oropharynx Ears: bilateral: normal - Neck Neck: Present: normal ROM. Absent: lymphadenopathy, rigidity, thyromegaly Carotids: negative: bruit present Thyroid: bilateral: normal size, negative: enlarged, nodule - Respiratory Respiratory: bilateral: CTA, negative: rales, rhonchi, wheezing - Cardiovascular Rhythm: regular Heart sounds: normal: S1, S2 Abnormal Heart Sounds: Absent: systolic murmur, diastolic murmur - Gastrointestinal General gastrointestinal: Present: normal bowel sounds, soft. Absent: distended, organomegaly, tenderness - Genitourinary Genitourinary Comment(s): deferred - Integumentary Integumentary: Present: normal turgor. Absent: jaundiced, rash, ulcer - Neurologic Neurologic: Present: CNII-XII intact. Absent: focal deficits - Musculoskeletal Musculoskeletal: Present: gait normal, strength equal bilaterally - Psychiatric Psychiatric: Present: A&O x's 3, appropriate affect, intact judgment & insight - Labs CBC & Chem 7: 03/06/21 08:08 03/06/21 08:08 Labs: Abnormal Lab Results - Last 24 Hours (Table) 03/06/21 03/06/21 03/07/21 Range/Units 16:47 22:26 06:36 POC Glucose (mg/dL) 163 H 159 H 133 H (75-99) mg/dL 03/07/21 Range/Units 11:32 POC Glucose (mg/dL) 131 H (75-99) mg/dL Microbiology - Last 24 Hours (Table) 03/04/21 20:49 Blood Culture - Preliminary Blood No Growth after 48 hours Assessment and Plan Assessment: 1. Left hand dog bite cellulitis with SIRS and failure of outpatient treatment - Patient remains on IV Unasyn per ID recommendations; had surgery on board and recommending wound medication; patient will continue on IV Unasyn with plans to switch to oral Augmentin once stable for discharge 2. Leukocytosis secondary to 1; continue to monitor CBC, CRP and pro-calcitonin 3. Diabetes mellitus; monitor Accu-Cheks before meals and at bedtime with insulin sliding scale; continue home dose of Tradjenta 5 mg daily and metformin 500 mg twice a day 4. Hypertension; lisinopril 40 mg twice a day; hydrochlorothiazide 25 mg daily and metoprolol 25 mg daily 5. Hyperlipidemia; Lipitor 80 mg by mouth daily at bedtime with Zetia 10 mg daily DVT prophylaxis; SCDs/subcu heparin CODE STATUS; full code
[2021-03-08] MEDS: ALPRAZolam 0.25 MG TAB PO PRN ×2 (16:16→21:49)
[2021-03-08 17:03] LABS: Glucose,Whole Blood 136 mg/dL (75-99)
--- NOTE | 2021-03-08 18:51 | P.PN ---
Subjective Progress Note Date: 03/08/21 Principal diagnosis: Left hand dog bite cellulitis 51-year-old female patient admitted to the hospital with left hand pain and swelling after doubt bite; patient showed some worsening of the local wound with drainage; hence surgery on board and recommending incision and irrigation of the wound with plans to continue IV Unasyn; ID recommended patient could be discharged on oral Augmentin with close outpatient follow-up Patient remains afebrile with temperature of 98.6, pulse 70, blood pressure 140/97 Plan for incision and irrigation this morning 03/08/2021 Patient is seen and evaluated in room at bedside; complaints of chest pressure radiating to the neck even while resting in bed; patient reports that she feels better with ambulation Vital signs are reviewed and are stable with temperature of 98.1, pulse 74, respirations 16 and blood pressure of 150/92 with O2 saturation 90% on room air Patient seems to be in no acute distress; stat EKGs done which reveals normal sinus rhythm; we will order and trend troponin; we will consult cardiology for further recommendations; patient reports history of heart catheterization done over a year ago which was unremarkable; we will hold patient's discharge and await further recommendations from cardiology Objective - Vital Signs Vital signs: Vital Signs Temp 98.1 F 03/08/21 14:00 Pulse 74 03/08/21 14:00 Resp 16 03/08/21 14:00 BP 150/92 03/08/21 14:00 Pulse Ox 90 L 03/08/21 14:00 Intake & Output 03/07/21 03/08/21 03/08/21 18:59 06:59 18:59 Intake Total 750 Output Total 5 Balance 745 Weight 97.976 kg Intake: IV 750 Output: Estimated Blood Loss 5 Other: Voiding Method Toilet Toilet # Voids 2 1 3 # Bowel Movements 2 - Exam - Constitutional General appearance: Present: average body habitus, cooperative, no acute distress - EENT Eyes: Present: anicteric sclerae, EOMI, PERRLA, normal appearance ENT: Present: hearing grossly normal, normal oropharynx Ears: bilateral: normal - Neck Neck: Present: normal ROM. Absent: lymphadenopathy, rigidity, thyromegaly Carotids: negative: bruit present Thyroid: bilateral: normal size, negative: enlarged, nodule - Respiratory Respiratory: bilateral: CTA, negative: rales, rhonchi, wheezing - Cardiovascular Rhythm: regular Heart sounds: normal: S1, S2 Abnormal Heart Sounds: Absent: systolic murmur, diastolic murmur - Gastrointestinal General gastrointestinal: Present: normal bowel sounds, soft. Absent: distended, organomegaly, tenderness - Genitourinary Genitourinary Comment(s): deferred - Integumentary Integumentary: Present: normal turgor. Absent: jaundiced, rash, ulcer - Neurologic Neurologic: Present: CNII-XII intact. Absent: focal deficits - Musculoskeletal Musculoskeletal: Present: gait normal, strength equal bilaterally - Psychiatric Psychiatric: Present: A&O x's 3, appropriate affect, intact judgment & insight - Labs CBC & Chem 7: 03/06/21 08:08 03/06/21 08:08 Labs: Abnormal Lab Results - Last 24 Hours (Table) 03/07/21 03/08/21 03/08/21 Range/Units 22:13 07:13 11:25 POC Glucose (mg/dL) 259 H 123 H 182 H (75-99) mg/dL 03/08/21 Range/Units 17:01 POC Glucose (mg/dL) 136 H (75-99) mg/dL Microbiology - Last 24 Hours (Table) 03/04/21 20:49 Blood Culture - Preliminary Blood No Growth after 72 hours Assessment and Plan Assessment: 1. Left hand dog bite cellulitis with SIRS and failure of outpatient treatment - Patient remains on IV Unasyn per ID recommendations; had surgery on board and recommending wound medication; patient will continue on IV Unasyn with plans to switch to oral Augmentin once stable for discharge 2. Leukocytosis secondary to 1; continue to monitor CBC, CRP and pro-calcitonin 3. Diabetes mellitus; monitor Accu-Cheks before meals and at bedtime with insulin sliding scale; continue home dose of Tradjenta 5 mg daily and metformin 500 mg twice a day 4. Hypertension; lisinopril 40 mg twice a day; hydrochlorothiazide 25 mg daily and metoprolol 25 mg daily 5. Hyperlipidemia; Lipitor 80 mg by mouth daily at bedtime with Zetia 10 mg daily DVT prophylaxis; SCDs/subcu heparin CODE STATUS; full code
[2021-03-08] MEDS: IBUPROFEN 400 MG TAB PO PRN (20:19)
[2021-03-08 21:36] LABS: Glucose,Whole Blood 149 mg/dL (75-99)
[2021-03-08] MEDS: ATORVASTATIN 80 MG TAB PO SCH (21:49)
[2021-03-08] MEDS: SERTRALINE 50 MG TAB PO SCH (21:49)
--- NOTE | 2021-03-08 23:59 | PN ---
PROGRESS NOTE DATE OF SERVICE: 03/08/2021 REASON FOR FOLLOWUP: Left hand dog bite cellulitis. INTERVAL HISTORY: Patient is currently afebrile. The patient is breathing comfortably. Denies having any chest pain. No shortness of breath. No cough. No abdominal pain. Overall pain and discomfort to the left hand is currently controlled. PHYSICAL EXAMINATION: Blood pressure 151/91 with a pulse of 73, temperature 98.7. She is 92% on room air. General description: The patient is a middle-aged female up in the bed in no distress. Respiratory system: Unlabored breathing, clear to auscultation anteriorly. HEART: S1, S2. Regular rate and rhythm. ABDOMEN: Soft. No tenderness. Left hand is currently dressed up. No obvious drainage on the dressing. LABS: Blood culture negative. No local cultures were done at the time of I&D yesterday. DIAGNOSTIC IMPRESSION AND PLAN: Patient with left hand dog bite cellulitis, status post washout yesterday. Blood culture negative. Patient clinically responded to Unasyn to continue, finishing therapy on oral Augmentin and close outpatient followup. MMODL / IJN: [id number] /
[2021-03-09] MEDS: AMPICILLIN-SULBACTAM 3 GM in SODIUM CHLORIDE 0.9% 100 ML IVPB SCH ×3 (04:22→14:27)
[2021-03-09] MEDS: HEPARIN SODIUM,PORCINE/PF 5,000 UNIT/0.5 ML SYRINGE SQ SCH ×2 (04:23→14:28)
[2021-03-09] MEDS: HYDROcodone/APAP 5-325MG 1 EACH TAB PO PRN (04:28)
[2021-03-09 06:48] LABS: Glucose,Whole Blood 125 mg/dL (75-99)
[2021-03-09 07:46] VITALS: RESP 16
[2021-03-09] MEDS: INSULIN ASPART (NovoLOG) 100 UNIT/ML VIAL SQ SCH ×2 (07:53→11:35)
--- NOTE | 2021-03-09 08:37 | P.PN ---
Subjective Progress Note Date: 03/09/21 Principal diagnosis: Left hand/arm cellulitis Left hand dorsal puncture wound, status post right Patient was evaluated today at bedside, she is resting comfortably. She has no acute pain. She denies any fevers or chills at this time. She has not shortness of breath or chest pain at this time. Patient was Overnight for cardiac workup. When the internal medicine doctor saw the patient yesterday, she was complaining of some chest pain and discomfort. EKG was done which showed no acute changes, troponins were drawn and a cardiac consult was placed. Objective - Vital Signs Vital signs: Vital Signs Temp 97.5 F L 03/09/21 07:45 Pulse 70 03/09/21 07:45 Resp 16 03/09/21 07:45 BP 162/97 03/09/21 07:45 Pulse Ox 95 03/09/21 07:45 Intake & Output 03/08/21 03/09/21 03/09/21 18:59 06:59 18:59 Other: Voiding Method Toilet Toilet # Voids 3 3 # Bowel Movements 2 - Exam Left upper extremity: Postoperative bandage is in good position and condition. Minimal soft tissue swelling present in the fingers. Sensory exam to light touch both proximal distal to the splinter intact. Cap refill is less than 2 seconds She is nontender with palpation involving the wrist, forearm, elbow, upper arm. Range of motion is intact with regards to wrist extension and flexion, elbow extension and flexion. No significant strength deficits were appreciated with regards to flexion and extension of all digits, wrist extension and flexion, elbow flexion and extension. - Labs CBC & Chem 7: 03/06/21 08:08 03/06/21 08:08 Labs: Abnormal Lab Results - Last 24 Hours (Table) 03/08/21 03/08/21 03/08/21 Range/Units 11:25 17:01 21:34 POC Glucose (mg/dL) 182 H 136 H 149 H (75-99) mg/dL 03/09/21 Range/Units 06:47 POC Glucose (mg/dL) 125 H (75-99) mg/dL Microbiology - Last 24 Hours (Table) 03/04/21 20:49 Blood Culture - Preliminary Blood No Growth after 96 hours Assessment and Plan Assessment: Status post irrigation and debridement left hand Left hand, index finger dorsal puncture wound Left hand cellulitis Status post dog bite left hand Plan: Patient is doing well at this time. Infectious disease has recommended oral co urse of Augmentin to finish antibiotic treatment. Wound care instructions were discussed with patient Pain control, she will utilize Tylenol and Motrin at home Other medical director/head team physician recommendations On a orthopedic standpoint, patient is stable for discharge. Time with Patient: Less than 30
[2021-03-09] MEDS: ASPIRIN 81 MG PO SCH (08:48)
[2021-03-09] MEDS: lisinopriL 20 MG TAB PO SCH (08:48)
[2021-03-09] MEDS: METOPROLOL SUCCINATE (ER) 25 MG TAB.ER.24H PO SCH (08:48)
[2021-03-09] MEDS: hydroCHLOROthiazide 25 MG TAB PO SCH (08:48)
[2021-03-09] MEDS: metFORMIN 500 MG TAB PO SCH (08:48)
[2021-03-09] MEDS: PANTOPRAZOLE 40 MG TABLET PO SCH (08:48)
[2021-03-09] MEDS: EZETIMIBE 10 MG TAB PO SCH (08:48)
[2021-03-09] MEDS: LINAGLIPTIN 5 MG TABLET PO SCH (08:48)
[2021-03-09] MEDS: SODIUM CHLORIDE 0.9% 1,000 ML IV SCH (08:49)
[2021-03-09] MEDS: MUPIROCIN 2% OINT 22 GM TUBE TOPICAL SCH (08:49)
--- NOTE | 2021-03-09 10:55 | P.CRDCN ---
History of Present Illness Consult date: 03/09/21 History of present illness: This is a very pleasant 51-year-old female patient with a past medical history significant for diabetes and hypertension and dyslipidemia who we consulted to see for chest discomfort. The patient underwent few days ago irrigation and debridement of the left hand. She was going to be discharged home when she developed chest discomfort. The patient did describe the discomfort as a pressure in the middle of the chest without any radiation and without any associated symptoms. No sweating and no shortness of breath and no feeling of heart racing or fluttering or presyncope or syncope. She underwent an EKG which showed sinus rhythm without any significant ST or T-wave abnormalities. The first set of troponin came in to be unremarkable. Please note that she underwent a heart catheterization in 2019 and that revealed mild nonobstructive coronary artery disease. The patient follows regularly was Dr. Ariza in the office. Past Medical History Past Medical History: Chest Pain / Angina, Diabetes Mellitus, GERD/Reflux, Hyperlipidemia, Hypertension, Sleep Apnea/CPAP/BIPAP, Thyroid Disorder Additional Past Medical History / Comment(s): TMJ, neuropathy bilateral feet and occasioanly hands, thyroid nodule (not cancerous), Pt has type 2 diabetes. Pt has a CPAP started in December 2020. History of Any Multi-Drug Resistant Organisms: None Reported Past Surgical History: Bladder Surgery, Hysterectomy, Orthopedic Surgery, Tubal Ligation Additional Past Surgical History / Comment(s): R oophorectomy, bladder suspension, ORIF R ankle, EGD with bx and colonoscopy. left foot Past Anesthesia/Blood Transfusion Reactions: Previous Problems w/ Anesthesia, Blood Transfusion Reaction Additional Past Anesthesia/Blood Transfusion Reaction / Comment(s): "hard time waking up". Pt received blood with hysterectomy. Pt had no reaction to blood products (Just lost too much blood durring surgery). Past Psychological History: Anxiety, Depression Additional Psychological History / Comment(s): Pt resides with her spouse and their two children, 15 yr old and 18 yr old. She is independent. Smoking Status: Never smoker Past Alcohol Use History: None Reported Past Drug Use History: Marijuana Additional Drug Use History / Comment(s): Pt states in the past she occasionally smoked marijuana but none for a long time. ABOUT 1 YEAR - Past Family History Father Family Medical History: Cancer, COPD, Diabetes Mellitus, GERD/Reflux, Hearing Disorder / Deafness, Hypertension, Osteoarthritis (OA), Pneumonia, Seizure Disorder, Thyroid Disorder Additional Family Medical History / Comment(s): Father had a stent placed in heart, had lots of heart issues, farther had some deafness with age. Sister(s) Family Medical History: Cancer Mother Family Medical History: COPD Additional Family Medical History / Comment(s): Mother of COPD at the age of 61 yrs. She was a smoker Medications and Allergies Home Medications Medication Instructions Recorded Confirmed Type Aspirin [Adult Low Dose Aspirin EC] 81 mg PO DAILY 08/05/18 03/04/21 History Enalapril [Vasotec] 20 mg PO BID 08/05/18 03/04/21 History Atorvastatin [Lipitor] 80 mg PO HS #30 tab 12/02/18 03/04/21 Rx Ezetimibe [Zetia] 10 mg PO DAILY #30 tab 12/02/18 03/04/21 Rx Nitroglycerin Sl Tabs [Nitrostat] 0.4 mg SUBLINGUAL Q5M PRN #25 tab 12/03/18 03/04/21 Rx Metoprolol Succinate (ER) [Toprol 25 mg PO DAILY 08/30/19 03/04/21 History XL] Amoxic-Pot Clav 875-125Mg 1 tab PO BID 03/04/21 03/04/21 History [Augmentin 875-125] Mupirocin 2% Oint [Bactroban 2% 1 applic TOPICAL BID 03/04/21 03/04/21 History Oint] Sertraline [Zoloft] 50 mg PO HS 03/04/21 03/04/21 History hydroCHLOROthiazide [Hydrodiuril] 25 mg PO DAILY 03/04/21 03/04/21 History metFORMIN HCL ER [Glucophage Xr] 1,000 mg PO W/SUPPER 03/04/21 03/04/21 History sitaGLIPtin PHOSPHATE [Januvia] 100 mg PO DAILY 03/04/21 03/04/21 History Amoxic-Pot Clav 875-125Mg 1 tab PO BID #20 tab 03/08/21 Rx [Augmentin 875-125] Allergies Allergy/AdvReac Type Severity Reaction Status Date / Time No Known Allergies Allergy Verified 03/04/21 23:14 Physical Exam Vitals: Vital Signs Temp Pulse Resp BP Pulse Ox 03/09/21 07:45 97.5 F L 70 16 162/97 95 03/09/21 02:00 98.0 F 77 19 147/80 94 L 03/08/21 20:23 18 03/08/21 19:51 98.7 F 78 18 151/91 92 L 03/08/21 14:00 98.1 F 74 16 150/92 90 L Intake and Output 03/08/21 03/09/21 03/09/21 22:59 06:59 14:59 Other: Voiding Method Toilet Toilet # Voids 3 3 # Bowel Movements 2 - Constitutional General appearance: no acute distress - Respiratory Respiratory: bilateral: CTA - Cardiovascular Rhythm: regular Heart sounds: normal: S1, S2 Results 03/06/21 08:08 03/06/21 08:08 Cardiac Enzymes 03/08/21 Range/Units 14:53 Troponin I <0.012 (0.000-0.034) ng/mL Current Medications Generic Name Dose Route Start Last Admin Trade Name Freq PRN Reason Stop Dose Admin Acetaminophen 650 mg 03/04/21 22:53 03/08/21 20:19 Acetaminophen Tab 325 Mg Tab PO 650 mg Q6HR PRN Administration Mild Pain or Fever > 100.5 Hydrocodone Bitart/Acetaminophen 1 each 03/05/21 13:52 03/09/21 04:28 Hydrocodone/Apap 5-325mg 1 Each Tab PO 1 each Q6HR PRN Administration Pain Alprazolam 0.25 mg 03/05/21 13:52 03/08/21 21:49 Alprazolam 0.25 Mg Tab PO 0.25 mg TID PRN Administration Anxiety Aspirin 81 mg 03/06/21 09:00 03/09/21 08:48 Aspirin 81 Mg PO 81 mg DAILY MARGARITA Administration Atorvastatin Calcium 80 mg 03/05/21 01:45 03/08/21 21:49 Atorvastatin 80 Mg Tab PO 80 mg HS MARGARITA Administration Ezetimibe 10 mg 03/06/21 09:00 03/09/21 08:48 Ezetimibe 10 Mg Tab PO 10 mg DAILY MARGARITA Administration Heparin Sodium (Porcine) 5,000 unit 03/05/21 14:00 03/09/21 04:23 Heparin Sodium,Porcine/Pf 5,000 Unit/0.5 Ml Syringe SQ 5,000 unit Q12H MARGARITA Administration Hydrochlorothiazide 25 mg 03/06/21 09:00 03/09/21 08:48 Hydrochlorothiazide 25 Mg Tab PO 25 mg DAILY MARGARITA Administration Hydromorphone HCl 0.5 mg 03/05/21 13:53 03/08/21 00:45 Hydromorphone 0.5 Mg/0.5 Ml Syringe IVP 0.5 mg Q6HR PRN Administration Severe Pain Sodium Chloride 1,000 mls @ 75 mls/hr 03/07/21 17:30 03/09/21 08:49 Saline 0.9% IV 75 mls/hr .[id number] MARGARITA Administration Ampicillin Sodium/Sulbactam 100 mls @ 200 mls/hr 03/09/21 09:00 03/09/21 08:47 Sodium 3 gm/ Sodium Chloride IVPB 200 mls/hr Q6H MARGARITA Administration Ibuprofen 400 mg 03/04/21 22:53 03/08/21 20:19 Ibuprofen 400 Mg Tab PO 400 mg Q6HR PRN Administration Mild Pain or Fever > 100.5 Insulin Aspart 0 unit 03/05/21 12:30 03/09/21 07:53 Insulin Aspart (Novolog) 100 Unit/Ml Vial SQ Not Given ACHS [facility] Protocol Linagliptin 5 mg 03/06/21 09:00 03/09/21 08:48 Linagliptin 5 Mg Tablet PO 5 mg DAILY [facility] Administration Lisinopril 40 mg 03/05/21 01:45 03/09/21 08:48 Lisinopril 20 Mg Tab PO 40 mg BID MARGARITA Administration Metformin HCl 500 mg 03/05/21 21:00 03/09/21 08:48 Metformin 500 Mg Tab PO 500 mg BID MARGARITA Administration Metoprolol Succinate 25 mg 03/06/21 09:00 03/09/21 08:48 Metoprolol Succinate (Er) 25 Mg Tab.Er.24h PO 25 mg DAILY [facility] Administration Mupirocin 1 applic 03/05/21 21:00 03/09/21 08:49 Mupirocin 2% Oint 22 Gm Tube TOPICAL 1 applic BID [facility] Administration Naloxone HCl 0.2 mg 03/04/21 22:53 Naloxone 0.4 Mg/Ml 1 Ml Vial IV Q2M PRN Opioid Reversal Nitroglycerin 0.4 mg 03/05/21 13:52 Nitroglycerin Sl Tabs 0.4 Mg Tab SUBLINGUAL Q5M PRN Angina Ondansetron HCl 4 mg 03/04/21 22:53 03/08/21 00:46 Ondansetron 4 Mg/2 Ml Vial IVP 4 mg Q8HR PRN Administration Nausea And Vomiting Pantoprazole Sodium 40 mg 03/06/21 07:30 03/09/21 08:48 Pantoprazole 40 Mg Tablet PO 40 mg [id number] MARGARITA Administration Sertraline HCl 50 mg 03/05/21 01:45 03/08/21 21:49 Sertraline 50 Mg Tab PO 50 mg HS [facility]ARGARITA Administration Temazepam 15 mg 03/05/21 13:52 03/06/21 22:35 Temazepam 15 Mg Cap PO 15 mg HS PRN Administration Insomnia Intake and Output 03/08/21 03/09/21 03/09/21 22:59 06:59 14:59 Other: Voiding Method Toilet Toilet # Voids 3 3 # Bowel Movements 2 03/06/21 08:08 03/06/21 08:08 Assessment and Plan Assessment: Assessment #1 when episode of atypical chest discomfort with differential diagnosis of anxiety #2 known mild CAD on recent heart catheterization #3 multiple comorbid conditions Plan #1 acute coronary syndrome to be ruled out #2 we'll follow-up was 2 more sets of serial cardiac enzymes #3 if the cardiac enzymes came in to be unremarkable and the patient continues to be chest pain-free she potentially E discharge home Thank you for allowing us participate in her care
[2021-03-09 11:35] LABS: Glucose,Whole Blood 132 mg/dL (75-99)
[2021-03-09 12:41] LABS: African American GFR (CKD) 97.6 (60.0-200.0); Anion Gap 8.3 mmol/L (4.00-12.00); BUN/Creat Ratio 16.25 Ratio (12.00-20.00); Basophils # (A) 0.05 X 10*3/uL (0.00-0.10); Basophils % (A) 0.7 %; Calcium 9.3 mg/dL (8.7-10.3); Carbon Dioxide 27.7 mmol/L (21.6-31.8); Eosinophils # (A) 0.64 X 10*3/uL (0.04-0.35); Eosinophils % (A) 9.3 %; HCT 32.7 % (37.2-46.3); Lymphocytes # (A) 2.26 X 10*3/uL (0.90-5.00); Lymphocytes % (A) 32.8 %; MCH 31.3 pg (27.0-32.0); MCHC 33.6 g/dL (32.0-37.0); MCV 93.2 fL (80.0-97.0); Mean Platelet Volume 10.1 fL (9.5-12.2); Monocytes # (A) 0.38 X 10*3/uL (0.20-1.00); Monocytes % (A) 5.5 %; Neutrophils # (A) 3.55 X 10*3/uL (1.80-7.70); Neutrophils % (A) 51.4 %; Non-African American GFR(CKD) 84.2 (60.0-200.0); Platelet Count 295 X 10*3/uL (140-440); Potassium 4.3 mmol/L (3.5-5.5); RBC 3.51 X 10*6/uL (4.10-5.20); RDW 13.2 % (11.5-14.5)
[2021-03-09 14:47] VITALS: BP 157/88; PULSE 79; TEMP 97.9
--- NOTE | 2021-03-29 01:14 | P.DS ---
Providers Date of admission: 03/07/21 08:42 Expected date of discharge: 03/09/21 Attending physician: Surendra Alexander Consults: 03/04/21 22:53 Consult Physician Urgent Consulting Provider: Petey Springer Consult Reason/Comments: Left hand cellulitis, dogbite Do you want consulting provider notified?: Already Contacted 03/05/21 08:28 Consult Physician Routine Consulting Provider: Jhoana Noble Consult Reason/Comments: Dog bite with cellulitis Do you want consulting provider notified?: Yes 03/08/21 14:25 Consult Physician Routine Consulting Provider: Avinash Meeks Consult Reason/Comments: reports heavy chest Do you want consulting provider notified?: Yes Primary care physician: Shay [facility] Course: 51-year-old female patient admitted to the hospital with left hand pain and swelling after doubt bite; patient showed some worsening of the local wound with drainage; hence surgery on board and recommending incision and irrigation of the wound with plans to continue IV Unasyn; ID recommended patient could be discharged on oral Augmentin with close outpatient follow-up Patient remains afebrile with temperature of 98.6, pulse 70, blood pressure 140/97 Plan for incision and irrigation this morning 03/08/2021 Patient is seen and evaluated in room at bedside; complaints of chest pressure radiating to the neck even while resting in bed; patient reports that she feels better with ambulation Vital signs are reviewed and are stable with temperature of 98.1, pulse 74, respirations 16 and blood pressure of 150/92 with O2 saturation 90% on room air Patient seems to be in no acute distress; stat EKGs done which reveals normal sinus rhythm; we will order and trend troponin; we will consult cardiology for further recommendations; patient reports history of heart catheterization done over a year ago which was unremarkable; we will hold patient's discharge and await further recommendations from cardiology 1. Left hand dog bite cellulitis with SIRS and failure of outpatient treatment - Patient remains on IV Unasyn per ID recommendations; had surgery on board and recommending wound medication; patient will continue on IV Unasyn with plans to switch to oral Augmentin once stable for discharge 2. Leukocytosis secondary to 1; continue to monitor CBC, CRP and pro-calcitonin 3. Diabetes mellitus; monitor Accu-Cheks before meals and at bedtime with insulin sliding scale; continue home dose of Tradjenta 5 mg daily and metformin 500 mg twice a day 4. Hypertension; lisinopril 40 mg twice a day; hydrochlorothiazide 25 mg daily and metoprolol 25 mg daily 5. Hyperlipidemia; Lipitor 80 mg by mouth daily at bedtime with Zetia 10 mg daily Orthopedic surgery also saw patient-- Infectious disease has recommended oral course of Augmentin to finish antibiotic treatment. Wound care instructions were discussed with patient Pain control, she will utilize Tylenol and Motrin at home Other medical hospital sales recommendations On a orthopedic standpoint, patient is stable for discharge. Patient Condition at Discharge: Stable Plan - Discharge Summary Discharge Rx Participant: No New Discharge Prescriptions: New Amoxic-Pot Clav 875-125Mg [Augmentin 875-125] 1 tab PO BID #20 tab Continue Enalapril [Vasotec] 20 mg PO BID Aspirin [Adult Low Dose Aspirin EC] 81 mg PO DAILY Atorvastatin [Lipitor] 80 mg PO HS #30 tab Ezetimibe [Zetia] 10 mg PO DAILY #30 tab Nitroglycerin Sl Tabs [Nitrostat] 0.4 mg SUBLINGUAL Q5M PRN #25 tab PRN Reason: Angina Metoprolol Succinate (ER) [Toprol XL] 25 mg PO DAILY Sertraline [Zoloft] 50 mg PO HS metFORMIN HCL ER [Glucophage Xr] 1,000 mg PO W/SUPPER Mupirocin 2% Oint [Bactroban 2% Oint] 1 applic TOPICAL BID hydroCHLOROthiazide [Hydrodiuril] 25 mg PO DAILY Amoxic-Pot Clav 875-125Mg [Augmentin 875-125] 1 tab PO BID sitaGLIPtin PHOSPHATE [Januvia] 100 mg PO DAILY Discharge Medication List Aspirin [Adult Low Dose Aspirin EC] 81 mg PO DAILY 08/05/18 [History] Enalapril [Vasotec] 20 mg PO BID 08/05/18 [History] Atorvastatin [Lipitor] 80 mg PO HS #30 tab 12/02/18 [Rx] Ezetimibe [Zetia] 10 mg PO DAILY #30 tab 12/02/18 [Rx] Nitroglycerin Sl Tabs [Nitrostat] 0.4 mg SUBLINGUAL Q5M PRN #25 tab 12/03/18 [Rx] Metoprolol Succinate (ER) [Toprol XL] 25 mg PO DAILY 08/30/19 [History] Amoxic-Pot Clav 875-125Mg [Augmentin 875-125] 1 tab PO BID 03/04/21 [History] Mupirocin 2% Oint [Bactroban 2% Oint] 1 applic TOPICAL BID 03/04/21 [History] Sertraline [Zoloft] 50 mg PO HS 03/04/21 [History] hydroCHLOROthiazide [Hydrodiuril] 25 mg PO DAILY 03/04/21 [History] metFORMIN HCL ER [Glucophage Xr] 1,000 mg PO W/SUPPER 03/04/21 [History] sitaGLIPtin PHOSPHATE [Januvia] 100 mg PO DAILY 03/04/21 [History] Amoxic-Pot Clav 875-125Mg [Augmentin 875-125] 1 tab PO BID #20 tab 03/08/21 [Rx] Follow up Appointment(s)/Referral(s): Shay Tidwell DO [Primary Care Provider] - 03/12/21 10:30 am Petey Springer DO [Doctor of Osteopathic Medicine] - 1 Week (please call office to schedule appointment) Cherelle Ariza MD [STAFF PHYSICIAN] - 1 Week (please call the office to schedule follow up appointment.) Patient Instructions/Handouts: Animal Bite (GEN), Cellulitis (DC) Activity/Diet/Wound Care/Special Instructions: Orthopedic discharge instructions: 1. Okay to remove postoperative bandage after 72 hours (March 10) 2. Basic hand and wrist exercises, avoid excess use and heavy lifting 3. Take prescribed antibiotics 4. [id number] Motrin and Tylenol as needed 5. Plan for follow-up in 1 week for recheck Discharge Disposition: HOME SELF-CARE
== END 2021-03-09 16:30 | disposition home or self-care (01) | DRG 580 ==
LOC: EC 19:53 → 4SSUR 22:42 → OBSVTOIN 03-07 08:42
PROVIDERS: ADMIT Hospitalist; ATTEND Hospitalist
PROC: 0JBK0ZZ Excision of Left Hand Subcutaneous Tissue and Fascia, Open Approach (ICD-10-PCS; principal; 2021-03-07 15:45)
DX: L03.012 Cellulitis of left finger (principal); R65.10 Systemic inflammatory response syndrome (SIRS) of non-infectious origin without acute organ dysfunction; S61.251A Open bite of left index finger without damage to nail, initial encounter; S61.452A Open bite of left hand, initial encounter; Z20.822 Contact with and (suspected) exposure to COVID-19; R07.89 Other chest pain; E03.9 Hypothyroidism, unspecified; I25.10 Atherosclerotic heart disease of native coronary artery without angina pectoris; E11.42 Type 2 diabetes mellitus with diabetic polyneuropathy; E78.5 Hyperlipidemia, unspecified; G47.30 Sleep apnea, unspecified; I10 Essential (primary) hypertension; K21.9 Gastro-esophageal reflux disease without esophagitis; W54.0XXA Bitten by dog, initial encounter; Z79.82 Long term (current) use of aspirin; Z79.84 Long term (current) use of oral hypoglycemic drugs; Z79.899 Other long term (current) drug therapy; Z90.710 Acquired absence of both cervix and uterus; Z90.721 Acquired absence of ovaries, unilateral; Z79.890 Hormone replacement therapy
CPT/HCPCS: 36415; 80048; 80053; 84484; 85025; 85652; 86140; 87040; 87635; 93005; 99285

== ENCOUNTER → 2021-03-27 | Outpatient (CLI) | payer BC ==
--- NOTE | 2021-03-27 22:31 | SFUN ---
SLEEP CENTER FOLLOW UP NOTE DATE OF SERVICE: 03/27/2021 51-year-old lady has been followed in Sleep Center for treatment of obstructive sleep apnea-hypopnea syndrome. Recently the patient had home sleep apnea test which showed that the patient had obstructive sleep apnea and then she was started on treatment with Auto Pap. Today is her first visit after treatment was initiated. The patient is able to use equipment for the whole night. She feels better when she sleeps with the machine and she feels better during the day with the CPAP. [place] Sleepiness Scale today is 8, which is normal. I checked her CPAP unit. Range of the pressure 5-15 and with average pressure 9.1 cm of water, usage / nights, average 4.5 hours per night. Leak is 5 L/minute, which is normal. Apnea-hypopnea index 0.6. MEDICATIONS: Atorvastatin 80 mg once a day. Enalapril 20 mg twice a day. Hydrochlorothiazide 25 mg once a day. Metformin ER 400 mg 2 tablets, Januvia 100 mg in the morning, 10 mg in the morning. Metoprolol extended release 25 mg in the morning. Aspirin 81 mg once a day. Progesterone 200 mg at bedtime, vitamins, omega-3 supplements. PHYSICAL EXAMINATION: GENERAL: Patient in no distress. BP 115/81, HR 80, RR 15, weight 211, temp 97.6, oxygen saturation at room air 96%. HEENT: Oropharynx low position of soft palate. Mallampati 4. NECK: Supple, no JVD. Thyroid is not palpable. LUNGS: Clear to percussion and to auscultation. Good air exchange. No wheezing or rhonchi. HEART: S1, S2 regular. No murmurs, gallops, or rubs. ABDOMEN: Slightly obese. Soft and nontender. Bowel sounds are present. No organomegaly appreciated. EXTREMITIES: No clubbing or cyanosis. 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 Cranial nerves 2 to 7 intact. There is no fasciculation or atrophy. noted. No focal deficits observed. IMPRESSION: 1. Obstructive sleep apnea-hypopnea syndrome. Patient demonstrated borderline compliance with treatment benefitting from treatment. 2. Obesity. 3. Hypothyroidism. 4. Anxiety. 5. Hypertension. 6. Hyperlipidemia. 7. Diabetes mellitus. 8. History of sinus problems. 9. Headaches. 10.Acid reflux. 11.History of depression. 12.Status post bladder suspension. 13.Status post tubal ligation. 14.Status post uterus ablation. 15.Status post partial hysterectomy in 2012. 16.Status post right ankle surgery 2014. PLAN: 1. Patient will continue to use PAP equipment every night for the whole night. 2. Sleep hygiene with regular time in bed for at least 7-1/2 to 8 hours. 3. Precautions related to driving. No driving if feeling sleepiness. 4. I will maintain all necessary prescription for PAP supplies including mask, tube, filters. 5. Watching weight. 6. Follow-up visit in 6 months or earlier if patient has any problems. Thank you very much for allowing me to participate in management of your patient. Sincerely, Dontrell Vigil MD, PhD, FAASM Diplomat of [place] [employer] [place] [employer] [facility] [facility] [place] MMODL / RENEEN: [id number] /
== END | disposition home or self-care (01) ==
LOC: SLEEP 13:49
PROVIDERS: ATTEND Internal Medicine
DX: G47.33 Obstructive sleep apnea (adult) (pediatric) (principal); E03.9 Hypothyroidism, unspecified; F41.9 Anxiety disorder, unspecified; I10 Essential (primary) hypertension; E78.5 Hyperlipidemia, unspecified; E66.01 Morbid (severe) obesity due to excess calories; E11.9 Type 2 diabetes mellitus without complications; K21.9 Gastro-esophageal reflux disease without esophagitis; Z96.0 Presence of urogenital implants; Z98.51 Tubal ligation status; Z90.711 Acquired absence of uterus with remaining cervical stump; Z96.661 Presence of right artificial ankle joint; Z87.09 Personal history of other diseases of the respiratory system

== ENCOUNTER → 2022-01-08 | Outpatient (CLI) | payer BC ==
[2022-01-08 10:43] LABS: HCT 37.6 % (37.2-46.3); HGB 12.7 g/dL (12.0-15.0); MCH 31.7 pg (27.0-32.0); MCHC 33.8 g/dL (32.0-37.0); MCV 93.8 fL (80.0-97.0); Mean Platelet Volume 10.3 fL (9.5-12.2); NRBC Per 100 WBC 0 /100 WBCS (0.0-0.0); Platelet Count 323 X 10*3/uL (140-440); RBC 4.01 X 10*6/uL (4.10-5.20); RDW 13.2 % (11.5-14.5); WBC 6.12 X 10*3/uL (4.50-10.00)
[2022-01-08 11:12] LABS: ALT 16 U/L (8-44); AST 14 U/L (13-35); Albumin 4.2 g/dL (3.8-4.9); Albumin/Globulin Ratio 1.75 (1.60-3.17); Alkaline Phosphatase 46 U/L (41-126); BUN/Creat Ratio 14.56 Ratio (12.00-20.00); Blood Urea Nitrogen 13.1 mg/dL (9.0-27.0); Calcium 9.2 mg/dL (8.7-10.3); Carbon Dioxide 27.5 mmol/L (20.0-27.5); Chloride 100 mmol/L (96-109); Chol/HDL Ratio 3.37 Ratio; Globulin 2.4 g/dL (1.6-3.3); Glucose 121 mg/dL (70-110); LDL Cholesterol,Calculated 120.4 mg/dL (0.0-131.0); Non-African American GFR(CKD) 72.5 (60.0-200.0); Sodium 136 mmol/L (135-145); Total Protein 6.6 g/dL (6.2-8.2)
== END | disposition home or self-care (01) ==
LOC: LABWHC1 07:06
PROVIDERS: ATTEND Family Medicine
DX: E11.9 Type 2 diabetes mellitus without complications (principal); E21.3 Hyperparathyroidism, unspecified; E78.2 Mixed hyperlipidemia
CPT/HCPCS: 36415; 80053; 80061; 82306; 83970; 84439; 84443; 85027

== ENCOUNTER → 2022-02-09 | Outpatient (CLI) | payer BC ==
--- NOTE | 2022-02-11 11:43 | MM ---
Reason for Exam: Screening (asymptomatic). Last mammogram was performed 2 year(s) and 6 month(s) ago. Patient History: Menarche at age 8. First Full-Term at age 29. Late child-bearing (after 28). Right ovary removed at age 43. Hysterectomy at age 43. Postmenopausal. Paternal grandmother had breast cancer, age 70. Risk Values: Imelda 5 year model risk: 1.7%. NCI Lifetime model risk: 12.4%. Film Views: Bilateral CC views were taken. Bilateral MLO views were taken. Prior Study Comparison: 08/11/2019 Bilateral Screening Mammogram, [facility]. 08/28/2019 Right Diagnostic Mammogram, [facility]. 05/15/2020 Right Diagnostic Mammogram, [facility]. Tissue Density: The breast tissue is extremely dense which could obscure a lesion on mammography. Findings: Analyzed By CAD. There are scattered and grouped benign-appearing round and punctate calcifications bilaterally redemonstrated. Stable chronic nodularity in the left breast outer aspect. Overall Assessment: Benign, BI-RAD 2 Management: Screening Mammogram of both breasts in 1 year. A clinical breast exam by your physician is recommended on an annual basis and results should be correlated with mammographic findings. Some Advise annual bilateral breast ultrasound surveillance in patient with background dense tissue.
== END | disposition home or self-care (01) ==
LOC: RADMAMWWP 16:01
PROVIDERS: ATTEND Family Medicine
DX: Z12.31 Encounter for screening mammogram for malignant neoplasm of breast (principal)
CPT/HCPCS: 77063; 77067

== ENCOUNTER → 2022-06-12 | Outpatient (CLI) | payer BC ==
[2022-06-12 19:30] LABS: Hepatitis A Antibody IgM Nonreactive (Nonreactive); Hepatitis B Core IgM Nonreactive (Nonreactive); Hepatitis B Surface Antigen Nonreactive (Nonreactive); Hepatitis C IgG Antibody Nonreactive (Nonreactive)
== END | disposition home or self-care (01) ==
LOC: LABWHC1 11:51
PROVIDERS: ATTEND Physician Assistant Medical
DX: Z11.3 Encounter for screening for infections with a predominantly sexual mode of transmission (principal)
CPT/HCPCS: 36415; 80074; 86318; 86694; 86695; 86696; 86780

== ENCOUNTER → 2022-07-06 | Outpatient (CLI) | payer BC ==
--- NOTE | 2022-07-06 08:19 | US ---
EXAMINATION TYPE: US thyroid st tissue head/neck DATE OF EXAM: 07/06/2022 COMPARISON: 08/19/2018, 09/01/2019 CLINICAL HISTORY: E04.1 nontoxic single thyroid nodule. Previous FNA 08/19/2018 of left thyroid lobe nodule. GLAND SIZE: Right Lobe: 4.2 x 2.0 x 1.6 cm Overall Parenchyma: homogenous Left Lobe: 5.2 x 2.0 x 2.3 cm Overall Parenchyma: homogeneous Isthmus Thickness: 0.46 cm NODULES RIGHT: # of nodules measured on right: 0 LEFT: # of nodules measured on left: 1 1. 3.2 X 2.2 x 2.8 cm, lower mid, mixed cystic and solid, hypoechoic nodule, which is wider than ta ll, with smooth margins, with internal mobility. There is intranodular vascularity redemonstrated. TR -3. Prior size: 2.7 x 2.3 x 3.0 cm ISTHMUS: # of nodules measured in the isthmus: 0 Bilateral neck scanned, no evidence of lymphadenopathy. IMPRESSION: Relatively stable dominant left thyroid lobe nodule which was previously biopsied in 2018. No new nod ules demonstrated.
== END | disposition home or self-care (01) ==
LOC: RADUSWWP 07:43
PROVIDERS: ATTEND Family Medicine
DX: E04.1 Nontoxic single thyroid nodule (principal)
CPT/HCPCS: 76536

== ENCOUNTER → 2022-12-25 | Outpatient (CLI) | payer BC ==
[2022-12-25 19:07] LABS: African American GFR (CKD) 92.4 (60.0-200.0); Non-African American GFR(CKD) 79.7 (60.0-200.0); Potassium 4.5 mmol/L (3.5-5.5)
== END | disposition home or self-care (01) ==
LOC: LABWHC1 13:22
PROVIDERS: ATTEND Student in an Organized Health Care Education/Training Program
DX: L70.0 Acne vulgaris (principal)
CPT/HCPCS: 36415; 82565; 84132

== ENCOUNTER 2023-02-03 12:28 | Inpatient (IN) | payer BC ==
[2023-02-03] MEDS ORDERED: SODIUM CHLORIDE 0.9% 1,000 ML IV STA ×2 (13:04→18:30)
[2023-02-03] MEDS ORDERED: ACETAMINOPHEN TAB 500 MG TAB PO STA (13:15)
--- NOTE | 2023-02-03 13:38 | ED ---
General Adult HPI - General Source: patient, RN notes reviewed, old records reviewed Mode of arrival: ambulatory Limitations: no limitations <Francisco Jovel - Last Filed: 02/03/23 14:53> - General Source: RN notes reviewed, old records reviewed Mode of arrival: ambulatory Limitations: no limitations - History of Present Illness -: days(s) (4) Location: chest, back, abdomen Radiation: back, abdomen Severity scale (1-10): 7 Quality: sharp Consistency: constant Improves with: none Worsens with: none Associated Symptoms: chest pain, nausea/vomiting, shortness of breath, weakness Treatments Prior to Arrival: none <Babatunde Olvera - Last Filed: 02/03/23 22:58> - General Chief complaint: Arrhythmia/Palpitations Stated complaint: doc sent, Pain in bottom, abnormal EKG, Time Seen by Provider: 02/03/23 13:02 - History of Present Illness Initial comments: 53-year-old presents for evaluation of myalgia and lower abdominal pain. Patient had been seen by her primary care provider with complaints and concern for UTI. She was tachycardic and had generalized myalgias she was sent to the emergency department for evaluation. She's had subjective fever. Nausea without vomiting. (Francisco Jovel) - Related Data Home Medications Medication Instructions Recorded Confirmed Enalapril [Vasotec] 20 mg PO DAILY 08/05/18 02/03/23 Metoprolol Succinate (ER) [Toprol 25 mg PO DAILY 08/30/19 02/03/23 XL] Sertraline [Zoloft] 25 mg PO HS 03/04/21 02/03/23 metFORMIN HCL ER [Glucophage XR] 500 mg PO PC-SUPPER 03/04/21 02/03/23 sitaGLIPtin PHOSPHATE [Januvia] 100 mg PO DAILY 03/04/21 02/03/23 Ascorbic Acid [Vitamin C] 500 mg PO DAILY 02/03/23 02/03/23 Cephalexin [Keflex] 500 mg PO QID 02/03/23 02/03/23 Cholecalciferol [Vitamin D3 (25 50 mcg PO DAILY 02/03/23 02/03/23 Mcg = 1000 Iu)] Dapsone 1 applic TOPICAL DAILY 02/03/23 02/03/23 Ezetimibe [Zetia] 10 mg PO HS 02/03/23 02/03/23 Progesterone, Micronized 100 mg PO HS 02/03/23 02/03/23 [Progesterone] Rosuvastatin Calcium 5 mg PO DAILY 02/03/23 02/03/23 Spironolactone 50 mg PO PC-BID 02/03/23 02/03/23 Tretinoin [Tretinoin 0.025%] 1 applic TOPICAL TUFR 02/03/23 02/03/23 Turmeric Root Extract [Turmeric] 500 mg PO DAILY 02/03/23 02/03/23 Ubidecarenone [Coenzyme Q10] 100 mg PO DAILY 02/03/23 02/03/23 Vitamin B Complex 1 cap PO DAILY 02/03/23 02/03/23 Vitamin E (Dl,Tocopheryl Acet) 400 unit PO DAILY 02/03/23 02/03/23 [Vitamin E (400 Iu = 180 mg)] Zinc Gluconate [Zinc] 50 mg PO DAILY 02/03/23 02/03/23 buPROPion XL [Wellbutrin XL] 150 mg PO DAILY 02/03/23 02/03/23 Previous Rx's Medication Instructions Recorded Nitroglycerin Sl Tabs [Nitrostat] 0.4 mg SUBLINGUAL Q5M PRN #25 tab 12/03/18 Allergies Allergy/AdvReac Type Severity Reaction Status Date / Time No Known Allergies Allergy Verified 02/03/23 14:41 Review of Systems ROS Other: All systems not noted in ROS Statement are negative. <Francisco Jovel - Last Filed: 02/03/23 14:53> ROS Other: All systems not noted in ROS Statement are negative. <Babatunde Olvera - Last Filed: 02/03/23 22:58> ROS Statement: Those systems with pertinent positive or pertinent negative responses have been documented in the HPI. Past Medical History Past Medical History: Chest Pain / Angina, Diabetes Mellitus, GERD/Reflux, Hyperlipidemia, Hypertension, Sleep Apnea/CPAP/BIPAP, Thyroid Disorder Additional Past Medical History / Comment(s): TMJ, neuropathy bilateral feet and occasioanly hands, thyroid nodule (not cancerous), Pt has type 2 diabetes. Pt has a CPAP started in December 2020. History of Any Multi-Drug Resistant Organisms: None Reported Past Surgical History: Bladder Surgery, Hysterectomy, Orthopedic Surgery, Tubal Ligation Additional Past Surgical History / Comment(s): R oophorectomy, bladder suspension, ORIF R ankle, EGD with bx and colonoscopy. left foot Past Anesthesia/Blood Transfusion Reactions: Previous Problems w/ Anesthesia, Blood Transfusion Reaction Additional Past Anesthesia/Blood Transfusion Reaction / Comment(s): "hard time waking up". Pt received blood with hysterectomy. Pt had no reaction to blood products (Just lost too much blood durring surgery). Past Psychological History: Anxiety, Depression Smoking Status: Never smoker Past Alcohol Use History: None Reported Past Drug Use History: Marijuana - Past Family History Father Family Medical History: Cancer, COPD, Diabetes Mellitus, GERD/Reflux, Hearing Disorder / Deafness, Hypertension, Osteoarthritis (OA), Pneumonia, Seizure Disorder, Thyroid Disorder Additional Family Medical History / Comment(s): Father had a stent placed in heart, had lots of heart issues, farther had some deafness with age. Sister(s) Family Medical History: Cancer Mother Family Medical History: COPD Additional Family Medical History / Comment(s): Mother of COPD at the age of 61 yrs. She was a smoker <Francisco Jovel N - Last Filed: 02/03/23 14:53> General Exam Limitations: no limitations General appearance: alert, in no apparent distress Head exam: Present: atraumatic, normocephalic Eye exam: Present: normal appearance, PERRL ENT exam: Present: mucous membranes dry Neck exam: Present: normal inspection. Absent: tenderness, meningismus Respiratory exam: Present: normal lung sounds bilaterally. Absent: respiratory distress, wheezes Cardiovascular Exam: Present: normal rhythm, tachycardia GI/Abdominal exam: Present: soft. Absent: distended, tenderness, guarding Extremities exam: Present: normal inspection, normal capillary refill. Absent: pedal edema, calf tenderness Neurological exam: Present: alert, oriented X3, CN II-XII intact. Absent: motor sensory deficit Psychiatric exam: Present: normal affect, normal mood Skin exam: Present: warm, dry, intact. Absent: cyanosis, diaphoretic <Francisco Jovel N - Last Filed: 02/03/23 14:53> General appearance: alert, in no apparent distress, anxious, in distress Head exam: Present: atraumatic, normocephalic, normal inspection Eye exam: Present: normal appearance, PERRL, EOMI. Absent: scleral icterus, conjunctival injection, periorbital swelling ENT exam: Present: normal exam, mucous membranes dry, mucous membranes moist Neck exam: Present: normal inspection. Absent: tenderness, meningismus, lymphadenopathy Respiratory exam: Present: normal lung sounds bilaterally. Absent: respiratory distress, wheezes, rales, rhonchi, stridor Cardiovascular Exam: Present: regular rate, normal rhythm, tachycardia, normal heart sounds. Absent: systolic murmur, diastolic murmur, rubs, gallop, clicks GI/Abdominal exam: Present: soft, normal bowel sounds. Absent: distended, tenderness, guarding, rebound, rigid Extremities exam: Present: normal inspection, full ROM, normal capillary refill. Absent: tenderness, pedal edema, joint swelling, calf tenderness Back exam: Present: normal inspection Neurological exam: Present: alert, oriented X3, CN II-XII intact Psychiatric exam: Present: normal affect, normal mood Skin exam: Present: warm, dry, intact, normal color. Absent: rash <Babatunde Olvera B - Last Filed: 02/03/23 22:58> Course <Babatunde Olvera - Last Filed: 02/03/23 22:58> Vital Signs 02/03/23 02/03/23 02/03/23 12:44 16:05 17:28 Temperature 99.4 F Pulse Rate 131 H 99 101 H Pulse Rate [ Pulse Oximetery ] Respiratory 18 19 18 Rate Blood Pressure 113/81 116/77 110/72 O2 Sat by Pulse 98 99 95 Oximetry 02/03/23 02/03/23 02/03/23 19:19 19:21 19:30 Temperature Pulse Rate 109 H 111 H 106 H Pulse Rate [ Pulse Oximetery ] Respiratory 18 20 20 Rate Blood Pressure 134/77 134/77 134/77 O2 Sat by Pulse 100 89 L 99 Oximetry 02/03/23 02/03/23 02/03/23 19:40 19:45 20:00 Temperature Pulse Rate 110 H 112 H 113 H Pulse Rate [ 110 H Pulse Oximetery ] Respiratory 18 18 16 Rate Blood Pressure 136/80 136/80 136/80 O2 Sat by Pulse 99 99 99 Oximetry 02/03/23 02/03/23 20:15 21:00 Temperature Pulse Rate 114 H 113 H Pulse Rate [ Pulse Oximetery ] Respiratory 20 17 Rate Blood Pressure 135/79 128/79 O2 Sat by Pulse 98 99 Oximetry - Reevaluation(s) Reevaluation #1: 02/03/23 18:40 Medical record is reviewed (Babatunde Olvera) Reevaluation #2: 02/03/23 18:40 On reevaluating patient she was significantly short of breath, difficulty breathing elevated heart rate lightheadedness dizzy folic she was given a pass out if she just returned from the bathroom (Babatunde Olvera) - Consultations Consultation #1: Spoke with sound who agrees to admission (Babatunde Olvera) EKG Findings - EKG Comments: EKG Findings:: EKG: Sinus tachycardia rate of 110, OK interval 155, QRS duration 90, QTC [address] segment elevation. <Francisco Jovel - Last Filed: 02/03/23 14:53> Medical Decision Making - Lab Data Result diagrams: 02/03/23 14:00 <Francisco Jovel - Last Filed: 02/03/23 14:53> - Lab Data Result diagrams: 02/03/23 14:00 02/03/23 14:00 - Radiology Data Radiology results: report reviewed (Chest x-rays negative for acute disease, CTA chest positive or pulmonary edema CT abdomen and pelvis positive for p yelonephritis), image reviewed <Babatunde Olvera - Last Filed: 02/03/23 22:58> - Medical Decision Making Was pt. sent in by a medical professional or institution (, PA, AVIATION ELECTRICAL TECHNICIAN, urgent care, hospital, or jail...) When possible be specific @ Sent in by primary care Did you speak to anyone other than the patient for history (EMS, parent, family, police, friend...)? What history was obtained from this source @ -[No] Did you review nursing and triage notes (agree or disagree)? Why? @ -[I reviewed and agree with nursing and triage notes] Were old charts reviewed (outside hosp., previous admission, EMS record, old EKG, old radiological studies, urgent care reports/EKG's, jail records)? Report findings @ -[No old charts were reviewed] Differential Diagnosis (chest pain, altered mental status, abdominal pain women, abdominal pain men, vaginal bleeding, weakness, fever, dyspnea, syncope, headache, dizziness, GI bleed, back pain, seizure, CVA, palpatations, mental health, musculoskeletal)? @ Differential Palpitations Ventricular arrhythmias, atrial arrhythmias, myocardial infarction, anemia, thyrotoxicosis, electrolyte imbalance, hypokalemia, pulmonary embolism, pulmonary disease, drugs, alcohol, anxiety, stress.... This is not meant to be an all-inclusive list. EKG interpreted by me (3pts min.). @ -[As above] X-rays interpreted by me (1pt min.). @ Bilateral atelectasis without focal pneumonia reviewed by myself CT interpreted by me (1pt min.). @ -[None done] U/S interpreted by me (1pt. min.). @ -[None done] What testing was considered but not performed or refused? (CT, X-rays, U/S, labs)? Why? @ -[None] What meds were considered but not given or refused? Why? @ -[None] Did you discuss the management of the patient with other professionals (professionals i.e. , PA, AVIATION ELECTRICAL TECHNICIAN, lab, RT, psych nurse, social work instructor, lead installer, teacher, cra officer, pillowcase cutter)? Give summary @ -[No] Was smoking cessation discussed for >3mins.? @ -[No] Was critical care preformed (if so, how long)? @ -[No] Were there social determinants of health that impacted care today? How? (Homelessness, low income, unemployed, alcoholism, drug addiction, transportation, low edu. Level, literacy, decrease access to med. care, longterm, rehab)? @ -[No] Was there de-escalation of care discussed even if they declined (Discuss DNR or withdrawal of care, Hospice)? DNR status @ -[No] What co-morbidities impacted this encounter? (DM, HTN, Smoking, COPD, CAD, Cancer, CVA, ARF, Chemo, Hep., AIDS, mental health diagnosis, sleep apnea, morbid obesity)? @ -[None] Was patient admitted / discharged? Hospital course, mention meds given and route, prescriptions, significant lab abnormalities, going to OR and other pertinent info. @ Patient's care is signed out to Dr. Olvera awaiting laboratory testing and reevaluation (Francisco Jovel) 53 female DF for evaluation. Patient does present for multiple complaints or suicidal diagnosis made of polynephritis and UTI significant. Persistent tachycardia here in the ER with significant exertional dyspnea going to the bathroom. Patient does appear to have CHF or fluid overload on x-ray we'll driscoll cardiology evaluation, patient placed on antibiotics will be admitted to the hospital for supportive care (Babatunde Olvera) - Lab Data Lab Results 02/03/23 02/03/23 02/03/23 Range/Units 14:00 14:00 14:00 WBC 13.1 H (3.8-10.6) k/uL RBC 4.02 (3.80-5.40) m/uL Hgb 12.4 (11.4-16.0) gm/dL Hct 35.1 (34.0-46.0) % MCV 87.3 (80.0-100.0) fL MCH 30.8 (25.0-35.0) pg MCHC 35.3 (31.0-37.0) g/dL RDW 13.4 (11.5-15.5) % Plt Count 272 (150-450) k/uL MPV 8.1 Neutrophils % 88 % Lymphocytes % 5 % Monocytes % 6 % Eosinophils % 0 % Basophils % 0 % Neutrophils # 11.5 H (1.3-7.7) k/uL Lymphocytes # 0.6 L (1.0-4.8) k/uL Monocytes # 0.7 (0-1.0) k/uL Eosinophils # 0.0 (0-0.7) k/uL Basophils # 0.0 (0-0.2) k/uL PT 10.2 (9.0-12.0) sec INR 1.0 (<1.2) APTT 24.9 (22.0-30.0) sec D-Dimer 0.43 (<0.60) mg/L FEU Sodium 131 L (137-145) mmol/L Potassium 4.7 (3.5-5.1) mmol/L Chloride 101 (98-107) mmol/L Carbon Dioxide 23 (22-30) mmol/L Anion Gap 7 mmol/L BUN 18 H (7-17) mg/dL Creatinine 0.72 (0.52-1.04) mg/dL Est GFR (CKD-EPI)AfAm >90 (>60 ml/min/1.73 sqM) Est GFR (CKD-EPI)NonAf >90 (>60 ml/min/1.73 sqM) Glucose 132 H (74-99) mg/dL Plasma Lactic Acid Porfirio (0.7-2.0) mmol/L Calcium 8.7 (8.4-10.2) mg/dL Magnesium 1.5 L (1.6-2.3) mg/dL Total Bilirubin 1.3 (0.2-1.3) mg/dL AST 32 (14-36) U/L ALT 20 (4-34) U/L Alkaline Phosphatase 44 (38-126) U/L Troponin I (0.000-0.034) ng/mL Total Protein 6.8 (6.3-8.2) g/dL Albumin 3.8 (3.5-5.0) g/dL Urine Color Urine Appearance (Clear) Urine pH (5.0-8.0) Ur Specific [place] (1.001-1.035) Urine Protein (Negative) Urine Glucose (UA) (Negative) Urine Ketones (Negative) Urine Blood (Negative) Urine Nitrite (Negative) Urine Bilirubin (Negative) Urine Urobilinogen (<2.0) mg/dL Ur Leukocyte Esterase (Negative) Urine RBC (0-5) /hpf Urine WBC (0-5) /hpf Ur Squamous Epith Cells (0-4) /hpf Urine Bacteria (None) /hpf Urine Mucus (None) /hpf Influenza Type A (PCR) (Not Detectd) Influenza Type B (PCR) (Not Detectd) RSV (PCR) (Not Detectd) SARS-CoV-2 (PCR) (Not Detectd) 02/03/23 02/03/23 02/03/23 Range/Units 14:00 14:00 14:00 WBC (3.8-10.6) k/uL RBC (3.80-5.40) m/uL Hgb (11.4-16.0) gm/dL Hct (34.0-46.0) % MCV (80.0-100.0) fL MCH (25.0-35.0) pg MCHC (31.0-37.0) g/dL RDW (11.5-15.5) % Plt Count (150-450) k/uL MPV Neutrophils % % Lymphocytes % % Monocytes % % Eosinophils % % Basophils % % Neutrophils # (1.3-7.7) k/uL Lymphocytes # (1.0-4.8) k/uL Monocytes # (0-1.0) k/uL Eosinophils # (0-0.7) k/uL Basophils # (0-0.2) k/uL PT (9.0-12.0) sec INR (<1.2) APTT (22.0-30.0) sec D-Dimer (<0.60) mg/L FEU Sodium (137-145) mmol/L Potassium (3.5-5.1) mmol/L Chloride (98-107) mmol/L Carbon Dioxide (22-30) mmol/L Anion Gap mmol/L BUN (7-17) mg/dL Creatinine (0.52-1.04) mg/dL Est GFR (CKD-EPI)AfAm (>60 ml/min/1.73 sqM) Est GFR (CKD-EPI)NonAf (>60 ml/min/1.73 sqM) Glucose (74-99) mg/dL Plasma Lactic Acid Porfirio 0.8 (0.7-2.0) mmol/L Calcium (8.4-10.2) mg/dL Magnesium (1.6-2.3) mg/dL Total Bilirubin (0.2-1.3) mg/dL AST (14-36) U/L ALT (4-34) U/L Alkaline Phosphatase (38-126) U/L Troponin I <0.012 (0.000-0.034) ng/mL Total Protein (6.3-8.2) g/dL Albumin (3.5-5.0) g/dL Urine Color Urine Appearance (Clear) Urine pH (5.0-8.0) Ur Specific [place] (1.001-1.035) Urine Protein (Negative) Urine Glucose (UA) (Negative) Urine Ketones (Negative) Urine Blood (Negative) Urine Nitrite (Negative) Urine Bilirubin (Negative) Urine Urobilinogen (<2.0) mg/dL Ur Leukocyte Esterase (Negative) Urine RBC (0-5) /hpf Urine WBC (0-5) /hpf Ur Squamous Epith Cells (0-4) /hpf Urine Bacteria (None) /hpf Urine Mucus (None) /hpf Influenza Type A (PCR) Not Detected (Not Detectd) Influenza Type B (PCR) Not Detected (Not Detectd) RSV (PCR) Not Detected (Not Detectd) SARS-CoV-2 (PCR) Not Detected (Not Detectd) 02/03/23 Range/Units 16:08 WBC (3.8-10.6) k/uL RBC (3.80-5.40) m/uL Hgb (11.4-16.0) gm/dL Hct (34.0-46.0) % MCV (80.0-100.0) fL MCH (25.0-35.0) pg MCHC (31.0-37.0) g/dL RDW (11.5-15.5) % Plt Count (150-450) k/uL MPV Neutrophils % % Lymphocytes % % Monocytes % % Eosinophils % % Basophils % % Neutrophils # (1.3-7.7) k/uL Lymphocytes # (1.0-4.8) k/uL Monocytes # (0-1.0) k/uL Eosinophils # (0-0.7) k/uL Basophils # (0-0.2) k/uL PT (9.0-12.0) sec INR (<1.2) APTT (22.0-30.0) sec D-Dimer (<0.60) mg/L FEU Sodium (137-145) mmol/L Potassium (3.5-5.1) mmol/L Chloride (98-107) mmol/L Carbon Dioxide (22-30) mmol/L Anion Gap mmol/L BUN (7-17) mg/dL Creatinine (0.52-1.04) mg/dL Est GFR (CKD-EPI)AfAm (>60 ml/min/1.73 sqM) Est GFR (CKD-EPI)NonAf (>60 ml/min/1.73 sqM) Glucose (74-99) mg/dL Plasma Lactic Acid [place] (0.7-2.0) mmol/L Calcium (8.4-10.2) mg/dL Magnesium (1.6-2.3) mg/dL Total Bilirubin (0.2-1.3) mg/dL AST (14-36) U/L ALT (4-34) U/L Alkaline Phosphatase (38-126) U/L Troponin I (0.000-0.034) ng/mL Total Protein (6.3-8.2) g/dL Albumin (3.5-5.0) g/dL Urine Color Yellow Urine Appearance Cloudy H (Clear) Urine pH 6.0 (5.0-8.0) Ur Specific [place] 1.016 (1.001-1.035) Urine Protein 1+ H (Negative) Urine Glucose (UA) Negative (Negative) Urine Ketones 2+ H (Negative) Urine Blood Moderate H (Negative) Urine Nitrite Positive H (Negative) Urine Bilirubin Negative (Negative) Urine Urobilinogen <2.0 (<2.0) mg/dL Ur Leukocyte Esterase Large H (Negative) Urine RBC 14 H (0-5) /hpf Urine WBC >182 H (0-5) /hpf Ur Squamous Epith Cells 4 (0-4) /hpf Urine Bacteria Rare H (None) /hpf Urine Mucus Rare H (None) /hpf Influenza Type A (PCR) (Not Detectd) Influenza Type B (PCR) (Not Detectd) RSV (PCR) (Not Detectd) SARS-CoV-2 (PCR) (Not Detectd) Disposition <Francisco Jovel - Last Filed: 02/03/23 14:53> Is patient prescribed a controlled substance at d/c from ED?: No Time of Disposition: 18:10 <Babatunde Olvera - Last Filed: 02/03/23 22:58> Clinical Impression: Tachycardia, Hypomagnesemia, UTI (urinary tract infection), Pyelonephritis, CHF (congestive heart failure), Pulmonary edema, Hypoxia Disposition: ADMITTED IP TO THIS HOSP Condition: Serious
--- NOTE | 2023-02-03 14:26 | XR ---
EXAMINATION TYPE: XR chest 2V DATE OF EXAM: 02/03/2023 COMPARISON: NONE TECHNIQUE: PA and lateral views submitted. HISTORY: Dysrhythmia FINDINGS: The lungs are clear and there is no pneumothorax, pleural effusion, or focal pneumonia. Heart size normal and no overt failure. Osseous structures demonstrate hypertrophic and degenerative changes of the spine. Linear changes in the lung bases and noted posteriorly in the left ovary and likely atelec tatic or scarring. IMPRESSION: 1. Basilar subsegmental consolidation in the prior exam. Favor chronic atelectasis or scarring. Corre late clinically.
[2023-02-03 14:30] LABS: Basophils % (A) 0 %; Eosinophils % (A) 0 %; HCT 35.1 % (34.0-46.0); HGB 12.4 gm/dL (11.4-16.0); Lymphocytes # (A) 0.6 k/uL (1.0-4.8); Lymphocytes % (A) 5 %; MCH 30.8 pg (25.0-35.0); MCHC 35.3 g/dL (31.0-37.0); MCV 87.3 fL (80.0-100.0); Mean Platelet Volume 8.1; Monocytes # (A) 0.7 k/uL (0-1.0); Monocytes % (A) 6 %; Neutrophils # (A) 11.5 k/uL (1.3-7.7); Neutrophils % (A) 88 %; Platelet Count 272 k/uL (150-450); RBC 4.02 m/uL (3.80-5.40); RDW 13.4 % (11.5-15.5); WBC 13.1 k/uL (3.8-10.6)
[2023-02-03 14:35] LABS: ALT 20 U/L (4-34); African American GFR (CKD) >90 (>60 ml/min/1.73 sqM); Anion Gap 7 mmol/L; Blood Urea Nitrogen 18 mg/dL (7-17); Calcium 8.7 mg/dL (8.4-10.2); Carbon Dioxide 23 mmol/L (22-30); Chloride 101 mmol/L (98-107); Glucose 132 mg/dL (74-99); Non-African American GFR(CKD) >90 (>60 ml/min/1.73 sqM); Sodium 131 mmol/L (137-145); Total Bilirubin 1.3 mg/dL (0.2-1.3)
[2023-02-03 14:41] LABS: Partial Thromboplastin Time 24.9 sec (22.0-30.0); Prothrombin Time 10.2 sec (9.0-12.0)
[2023-02-03 15:22] LABS: AST 32 U/L (14-36); Albumin 3.8 g/dL (3.5-5.0); Potassium 4.7 mmol/L (3.5-5.1); Total Protein 6.8 g/dL (6.3-8.2)
[2023-02-03 15:23] LABS: Alkaline Phosphatase 44 U/L (38-126); Magnesium 1.5 mg/dL (1.6-2.3)
[2023-02-03 16:24] LABS: Appearance,Urine Cloudy (Clear); Bacteria,Urine Rare /hpf; Bilirubin,Urine Negative (Negative); Blood,Urine Moderate (Negative); Color,Urine Yellow; Glucose,Urine (UA) Negative (Negative); Ketones,Urine 2+ (Negative); Leukocyte Esterase,Urine Large (Negative); Mucus,Urine Rare /hpf; Nitrite,Urine Positive (Negative); Protein,Urine 1+ (Negative); RBC,Urine 14 /hpf (0-5); Specific Gravity,Urine 1.016 (1.001-1.035); Squamous Epithelial Cell,Urine 4 /hpf (0-4); Urobilinogen,Urine <2.0 mg/dL (<2.0); WBC,Urine >182 /hpf (0-5)
[2023-02-03] MEDS ORDERED: MAGNESIUM OXIDE 400 MG TAB PO STA ×2 (17:00)
[2023-02-03] MEDS ORDERED: MORPHINE SULFATE 4 MG/ML SYRINGE IVP STA (18:30)
[2023-02-03] MEDS ORDERED: ONDANSETRON 4 MG/2 ML VIAL IVP PRN (18:37)
[2023-02-03] MEDS ORDERED: NALOXONE 0.4 MG/ML 1 ML VIAL IV PRN (18:37)
[2023-02-03] MEDS ORDERED: HYDROmorphone 1 MG/ML 1 ML SYRINGE IVP PRN (18:37)
[2023-02-03] MEDS ORDERED: MAGNESIUM SULFATE-D5W PMX 1 GM in DEXTROSE/WATER 1 100ML.BAG IVPB ONE (18:41)
--- NOTE | 2023-02-03 19:31 | CT ---
EXAMINATION TYPE: CT abdomen pelvis w con CT DLP: 1501.5 (COMBINED) mGycm, Automated exposure control for dose reduction was used. DATE OF EXAM: 02/03/2023 6:58 PM COMPARISON: None CLINICAL INDICATION:Female, 53 years old with history of cp; pain, UTI TECHNIQUE: Axial CT of the abdomen and pelvis. Sagittal and coronal reformats were created on a [employer] workstation. Contrast used:65ML mL of Isovue 370 with IV Contrast, Oral contrast used: without Oral Contrast FINDINGS: LOWER CHEST: Unremarkable ABDOMEN LIVER: Unremarkable GALLBLADDER AND BILE DUCTS: Layering increased densities within the lumen consistent with gallstones are present. PANCREAS: Unremarkable. SPLEEN: Small splenule is present. ADRENAL GLANDS: Unremarkable. KIDNEYS AND URETERS: There is fat stranding changes around the collecting system on the left. No micheal dence of obstructive uropathy. There is hyperemia of the urothelium. There is cortical defect suspici ous for prior injury. Small bowel suspected pocket of fluid near the left renal sinus series 501 imag e 41 measuring up to 11 mm. No right obstructing calculus or obstructive uropathy. PELVIS BLADDER: Unremarkable REPRODUCTIVE: Unremarkable. ABDOMEN & PELVIS STOMACH AND BOWEL: No evidence of bowel obstruction. The appendix is normal. PERITONEUM/RETROPERITONEUM: No evidence of pneumoperitoneum or free fluid. VASCULATURE: Mild atherosclerotic calcifications are present throughout the abdominal aorta and its b ranches. No evidence of aortic aneurysm. MUSCULOSKELETAL: No acute osseous abnormalities. Mild disc degeneration changes are present throughou t the thoracolumbar spine. LYMPH NODES: No gross evidence for lymphadenopathy. SOFT TISSUE/ABDOMINAL WALL: Small fat-containing umbilical hernia. IMPRESSION: 1. Inflammation changes around the left renal collecting system. No obstructing calculus visualized. Correlate for ascending infection/pyelonephritis. 2. No obstructive uropathy or inflammation changes seen within the right kidney. 3. Cholelithiasis.
--- NOTE | 2023-02-03 21:06 | CT ---
EXAMINATION TYPE: CT angio chest CT DLP: 1501.5 (combined) mGycm, Automated exposure control for dose reduction was used. DATE OF EXAM: 02/03/2023 6:57 PM COMPARISON: Chest radiograph from same day. CLINICAL INDICATION:Female, 53 years old with history of cp; pain, worsening dyspnea. TECHNIQUE/CONTRAST: CTA scan of the thorax is performed with IV Contrast, patient injected with 65ml mL of Isovue 370, pu lmonary embolism protocol. MIP images are created and reviewed these are created on a separate works tation.. FINDINGS: Pulmonary Artery: There is no evidence for a filling defect within the pulmonary vasculature to sugge st acute pulmonary embolism. The pulmonary artery is at the upper limits of normal measuring 3.0 cm in dimension. Lungs/Pleura: No evidence of focal consolidation, pleural effusion or pneumothorax. Trachea atelectas is within the lung bases. Thickening of interlobular septa. Airway: Large airways are patent. Heart: Heart is within normal limits for size. Vasculature: No evidence of aortic aneurysm. Mediastinum: No gross evidence of adenopathy. Musculoskeletal: Moderate degenerative disc disease changes are present throughout the thoracolumbar spine. Soft Tissues: r left thyroid nodule measuring 3.5 x 2.4 cm. Lower neck: No significant findings. Upper Abdomen: Layering gallstones present. IMPRESSION: 1. No evidence of pulmonary embolism. 2. Pulmonary vascular congestion, correlate for volume overload. 3. Left thyroid nodule consider further evaluation with ultrasound if not recently performed.
[2023-02-03] MEDS: SODIUM CHLORIDE 0.9% 1,000 ML IV SCH (21:36)
[2023-02-03] MEDS: MORPHINE SULFATE 4 MG/ML SYRINGE IV PRN (22:42)
--- NOTE | 2023-02-04 02:32 | P.HPIM ---
History of Present Illness H&P Date: 02/03/23 Chief Complaint: diffuse body aches 53 year old female with DM , hypertension presented with diffuse body aches, chills, for the past few days , with fatigue and decrease appetite. today she started having dysuria , frequency urgency , and low back pain and decided to come in for evaluation , she denies any vaginal discharge or dysparunia . she has one sexual partner. no vaginal bleeding . she also reports intentional weight loss of 50 lbs , and well controlled DM with A1c 5.8% denies any diarrhea , chest pain , cough , SOB, nausea or vomiting denies smoking, illicit drugs . Review of Systems Pertinent positives as noted in HPI. All other systems were reviewed and are negative Past Medical History Past Medical History: Chest Pain / Angina, Diabetes Mellitus, GERD/Reflux, Hyperlipidemia, Hypertension, Sleep Apnea/CPAP/BIPAP, Thyroid Disorder Additional Past Medical History / Comment(s): TMJ, neuropathy bilateral feet and occasioanly hands, thyroid nodule (not cancerous), Pt has type 2 diabetes. Pt has a CPAP started in December 2020. History of Any Multi-Drug Resistant Organisms: None Reported Past Surgical History: Bladder Surgery, Hernia Repair, Hysterectomy, Orthopedic Surgery, Tubal Ligation Additional Past Surgical History / Comment(s): R oophorectomy, bladder suspension, ORIF R ankle, EGD with bx and colonoscopy. left foot, Tummy tuck Past Anesthesia/Blood Transfusion Reactions: Previous Problems w/ Anesthesia, Blood Transfusion Reaction Additional Past Anesthesia/Blood Transfusion Reaction / Comment(s): "hard time waking up". Pt received blood with hysterectomy. Pt had no reaction to blood products (Just lost too much blood durring surgery). Past Psychological History: Anxiety, Depression Additional Psychological History / Comment(s): Pt resides with her spouse and their two children, 19 yr old and 22 yr old. She is independent. Smoking Status: Never smoker Past Alcohol Use History: None Reported Past Drug Use History: Marijuana Additional Drug Use History / Comment(s): Pt states in the past she occasionally smoked marijuana but none for a long time. ABOUT 1 YEAR - Past Family History Father Family Medical History: Cancer, COPD, Diabetes Mellitus, GERD/Reflux, Hearing Disorder / Deafness, Hypertension, Osteoarthritis (OA), Pneumonia, Seizure Disorder, Thyroid Disorder Additional Family Medical History / Comment(s): Father had a stent placed in heart, had lots of heart issues, farther had some deafness with age. Sister(s) Family Medical History: Cancer Mother Family Medical History: COPD Additional Family Medical History / Comment(s): Mother of COPD at the age of 61 yrs. She was a smoker Medications and Allergies Home Medications Medication Instructions Recorded Confirmed Type Enalapril [Vasotec] 20 mg PO DAILY 08/05/18 02/03/23 History Nitroglycerin Sl Tabs [Nitrostat] 0.4 mg SUBLINGUAL Q5M PRN #25 tab 12/03/1807/19 Rx Metoprolol Succinate (ER) [Toprol 25 mg PO DAILY 08/30/19 02/03/23 History XL] Sertraline [Zoloft] 25 mg PO HS 03/04/21 02/03/23 History metFORMIN HCL ER [Glucophage XR] 500 mg PO PC-SUPPER 03/04/21 02/03/23 History sitaGLIPtin PHOSPHATE [Januvia] 100 mg PO DAILY 03/04/21 02/03/23 History Ascorbic Acid [Vitamin C] 500 mg PO DAILY 02/03/23 02/03/23 History Cephalexin [Keflex] 500 mg PO QID 02/03/23 02/03/23 History Cholecalciferol [Vitamin D3 (25 50 mcg PO DAILY 02/03/23 02/03/23 History Mcg = 1000 Iu)] Dapsone 1 applic TOPICAL DAILY 02/03/23 02/03/23 History Ezetimibe [Zetia] 10 mg PO HS 02/03/23 02/03/23 History Progesterone, Micronized 100 mg PO HS 02/03/23 02/03/23 History [Progesterone] Rosuvastatin Calcium 5 mg PO DAILY 02/03/23 02/03/23 History Spironolactone 50 mg PO PC-BID 02/03/23 02/03/23 History Tretinoin [Tretinoin 0.025%] 1 applic TOPICAL TUFR 02/03/23 02/03/23 History Turmeric Root Extract [Turmeric] 500 mg PO DAILY 02/03/23 02/03/23 History Ubidecarenone [Coenzyme Q10] 100 mg PO DAILY 02/03/23 02/03/23 History Vitamin B Complex 1 cap PO DAILY 02/03/23 02/03/23 History Vitamin E (Dl,Tocopheryl Acet) 400 unit PO DAILY 02/03/23 02/03/23 History [Vitamin E (400 Iu = 180 mg)] Zinc Gluconate [Zinc] 50 mg PO DAILY 02/03/23 02/03/23 History buPROPion XL [Wellbutrin XL] 150 mg PO DAILY 02/03/23 02/03/23 History Allergies Allergy/AdvReac Type Severity Reaction Status Date / Time No Known Allergies Allergy Verified 02/03/23 14:41 Physical Exam Vitals: Vital Signs Temp Pulse Pulse Resp BP BP Pulse Ox 02/03/23 21:19 99.2 F 110 H 16 103/62 100 02/03/23 21:00 113 H 17 128/79 99 02/03/23 20:15 114 H 20 135/79 98 02/03/23 20:00 113 H 110 H 16 136/80 99 02/03/23 19:45 112 H 18 136/80 99 02/03/23 19:40 110 H 18 136/80 99 02/03/23 19:30 106 H 20 134/77 99 02/03/23 19:21 111 H 20 134/77 89 L 02/03/23 19:19 109 H 18 134/77 100 02/03/23 17:28 101 H 18 110/72 95 02/03/23 16:05 99 19 116/77 99 02/03/23 12:44 99.4 F 131 H 18 113/81 98 Intake and Output 02/03/23 02/03/23 02/04/23 14:59 22:59 06:59 Intake Total 200 Balance 200 Intake: Oral 200 Other: Weight 81.647 kg 81.647 kg vv Constitutional: No acute distress, conversant, pleasant Eyes: Anicteric sclerae, moist conjunctiva, Pupils equal round reactive to light ENMT: NC/AT Oropharynx clear, no erythema, or exudates Neck: Supple, no masses, or JVD No carotid bruits No thyromegaly Lungs: Clear to auscultation Clear to percussion Normal respiratory effort, no accessory muscle use Cardiovascular: Heart regular in rate and rhythm, No murmurs, gallops, or rubs No peripheral edema Abdominal: Soft tenderness on percussion of the costovertebral angle , no guarding, rebound or rigidity Abdomen moving with respiration Normoactive bowel sounds No hepatomegaly, No splenomegaly No palpable mass No abdominal wall hernia noted Skin: Normal temperature, tone, texture, turgor Extremities: No digital cyanosis No clubbing Pedal pulses intact and symmetrical Radial pulses intact and symmetrical No calf tenderness Psychiatric: Alert and oriented to person, place and time Appropriate affect fair judgement Neuro Muscles Strength 5/5 in all 4 extremities Sensation to light touch grossly present throughout Cranial nerves II-XII grossly intact Lymphatics: no palpable cervical or supraclavicular lymph nodes Results CBC & Chem 7: 02/03/23 14:00 02/03/23 14:00 Labs: Abnormal Lab Results - Last 24 Hours (Table) 02/03/23 02/03/23 02/03/23 Range/Units 14:00 14:00 16:08 WBC 13.1 H (3.8-10.6) k/uL Neutrophils # 11.5 H (1.3-7.7) k/uL Lymphocytes # 0.6 L (1.0-4.8) k/uL Sodium 131 L (137-145) mmol/L BUN 18 H (7-17) mg/dL Glucose 132 H (74-99) mg/dL Magnesium 1.5 L (1.6-2.3) mg/dL Urine Appearance Cloudy H (Clear) Urine Protein 1+ H (Negative) Urine Ketones 2+ H (Negative) Urine Blood Moderate H (Negative) Urine Nitrite Positive H (Negative) Ur Leukocyte Esterase Large H (Negative) Urine RBC 14 H (0-5) /hpf Urine WBC >182 H (0-5) /hpf Urine Bacteria Rare H (None) /hpf Urine Mucus Rare H (None) /hpf Thrombosis Risk Factor Assmnt - Choose All That Apply Each Factor Represents 1 point: Age 41-60 years Thrombosis Risk Factor Assessment Total Risk Factor Score: 1 Thrombosis Risk Factor Assessment Level: Low Risk Assessment and Plan Assessment: 53 year old female with hypertension , DM , presented with urinary symptoms and low back pain , I discussed the case with ED doc , patient seems to have oswaldo lonephritis , I accepted the admission for sepsis for IV antibiotics, with anticipated length of stay > 2 midnights sepsis 2/2 UTI follow up cultures iv antibiotics with rocephine 1 gm daily fever control with tylenol pain control with morphine IVF hydration with normal saline 130 cc per hour WBC 13 , Temp 101 , HR 125 chronic conditions DM . well controlled A1C 5.8 insulin sliding scale Hypertension continue enalapril and metoprolol hypomagnesemia , Mg 1.5 replace IV , and follow up levels renal function unremarkable , Na 131, K 4.7, BUN [address] showed no renal stones, but did show renal collecting system inflammatory changes , and also cholelithiasis incidental finding of cholelithiasis , asymptomatic , consider OP follow up with surgery full code DVT PPX lovenox 40 mg sc daily
[2023-02-04] MEDS: MAGNESIUM SULFATE-D5W PMX 1 GM in DEXTROSE/WATER 1 100ML.BAG IVPB SCH ×2 (03:15→04:44)
[2023-02-04] MEDS: ACETAMINOPHEN TAB 325 MG TAB PO PRN (04:45)
[2023-02-04] MEDS: SODIUM CHLORIDE 0.9% 1,000 ML IV SCH ×2 (05:32→13:55)
[2023-02-04 07:14] LABS: Glucose,Whole Blood 176 mg/dL (70-110)
--- NOTE | 2023-02-04 10:03 | P.CRDCN ---
History of Present Illness History of present illness: HISTORY OF PRESENT ILLNESS: This is a 53-year-old female with a past medical history significant for mild nonobstructive coronary artery disease, hypertension, hyperlipidemia, and diabetes. Patient follows in the office with Dr. Meeks was last seen in the office in September 2022. We have been asked to see the patient in consultation for congestive heart failure. Patient examined at the bedside. Patient states earlier this week at home she was feeling unwell. She reports having a stomachache, fever and chills, and back pain. She went to see her PCP on Wednesday and was diagnosed with a urinary tract infection. She was also directed to come to the emergency room by her PCP. The patient was found to have a UTI and pyelonephritis. WBC on admission was 13.1. She is receiving IV antibiotics. The patient reports having some mild chest pain when she is laying flat in bed. She reports that she had a CAT scan yesterday and was having pain when she lay down flat for her test. She reports some shortness of breath with activity for the past week. She states that she has some tenderness to chest wall palpation. She also reports having some swelling in her legs that is worse in the afternoonafter she has worked all day and been standing on her feet. She reports that her rn production recently increased her dose of Aldactone for acne treatment. * EKG reveals sinus tachycardia with no signs of acute ischemia * Chest xray basilar subsegmental consolidation and the prior exam. Favor chronic atelectasis or scarring. * Chest CT: No evidence of pulmonary embolism. Pulmonary vascular congestion. Left thyroid nodule. * Laboratory data: WBC 13.1. Hemoglobin 12.4. White count 272. D-dimer 0.43. Sodium 131. Potassium 4.7. BUN 18. Creatinine 0.72. Troponin negative 1. ProBNP 196. * Current home cardiac medications include metoprolol succinate 25 mg daily, Zetia 10 mg at night, spironolactone 50 mg twice a day, Crestor 5 mg daily, enalapril 20 mg daily * Most recent echocardiogram obtained in November 2018 revealed ejection fraction 55-60%, mild MR, mild TR * Cardiac catheterization history: August 2019 revealing 30-40% lesion in the midportion of the intermediate coronary artery which was found to be a small caliber vessel. No other significant disease was noted. REVIEW OF SYSTEMS: At the time of my exam: CONSTITUTIONAL: Denies fever or chills. HEENT: Denies blurred vision, vision changes, or eye pain. Denies hemoptysis CARDIOVASCULAR: Denies chest pain. Denies orthopnea. Denies PND. Denies palp itations RESPIRATORY: Denies shortness of breath. GASTROINTESTINAL: Denies abdominal pain. Denies nausea or vomiting. HEMATOLOGIC: Denies bleeding disorders. GENITOURINARY: Denies any blood in urine. SKIN: Denies pruitis. Denies rash. PHYSICAL EXAM: VITAL SIGNS: Reviewed. GENERAL: Well-developed in no acute distress. HEENT: Head is normocephalic. Pupils are equal, round. Sclerae anicteric. Mucous membranes of the mouth are moist. Neck supple. No JVD or thyromegaly LUNGS: Respirations even and unlabored. Lungs essentially clear to auscultation bilaterally. HEART: Regular rate and rhythm. S1 and S2 heard. ABDOMEN: Soft. Nondistended. Nontender. EXTREMITIES: Normal range of motion. No clubbing or cyanosis. Peripheral pulses intact. Trace bilateral lower extremity edema NEUROLOGIC: Awake and alert. Oriented x 3. ASSESSMENT: Urinary tract infection Pyelonephritis Sepsis Chest pain, troponins negative 1, appears noncardiac Mild nonobstructive coronary artery disease Hypertension Hyperlipidemia Diabetes Lower extremity edema, minimal, chronic, likely secondary to venous insufficiency, no evidence of acute congestive heart failure Acne, on Aldactone outpatient PLAN: Obtain 2 additional troponins Continue current cardiac medications Obtain 2-D echo to assess cardiac structure and function At this time there is no evidence of congestive heart failure Continue to hold Aldactone. Likely resume tomorrow. Further recommendations pending patient's course Nurse practitioner note has been reviewed by physician. Signing provider agrees with the documented findings, assessment, and plan of care. Past Medical History Past Medical History: Chest Pain / Angina, Diabetes Mellitus, GERD/Reflux, Hyperlipidemia, Hypertension, Sleep Apnea/CPAP/BIPAP, Thyroid Disorder Additional Past Medical History / Comment(s): TMJ, neuropathy bilateral feet and occasioanly hands, thyroid nodule (not cancerous), Pt has type 2 diabetes. Pt has a CPAP started in December 2020. History of Any Multi-Drug Resistant Organisms: None Reported Past Surgical History: Bladder Surgery, Hernia Repair, Hysterectomy, Orthopedic Surgery, Tubal Ligation Additional Past Surgical History / Comment(s): R oophorectomy, bladder suspension, ORIF R ankle, EGD with bx and colonoscopy. left foot, Tummy tuck Past Anesthesia/Blood Transfusion Reactions: Previous Problems w/ Anesthesia, Blood Transfusion Reaction Additional Past Anesthesia/Blood Transfusion Reaction / Comment(s): "hard time waking up". Pt received blood with hysterectomy. Pt had no reaction to blood products (Just lost too much blood durring surgery). Past Psychological History: Anxiety, Depression Additional Psychological History / Comment(s): Pt resides with her spouse and their two children, 19 yr old and 22 yr old. She is independent. Smoking Status: Never smoker Past Alcohol Use History: None Reported Past Drug Use History: Marijuana Additional Drug Use History / Comment(s): Pt states in the past she occasionally smoked marijuana but none for a long time. ABOUT 1 YEAR - Past Family History Father Family Medical History: Cancer, COPD, Diabetes Mellitus, GERD/Reflux, Hearing Disorder / Deafness, Hypertension, Osteoarthritis (OA), Pneumonia, Seizure Disorder, Thyroid Disorder Additional Family Medical History / Comment(s): Father had a stent placed in heart, had lots of heart issues, farther had some deafness with age. Sister(s) Family Medical History: Cancer Mother Family Medical History: COPD Additional Family Medical History / Comment(s): Mother of COPD at the age of 61 yrs. She was a smoker Medications and Allergies Home Medications Medication Instructions Recorded Confirmed Type Enalapril [Vasotec] 20 mg PO DAILY 08/05/18 02/03/23 History Nitroglycerin Sl Tabs [Nitrostat] 0.4 mg SUBLINGUAL Q5M PRN #25 tab 12/03/18 02/03/23 Rx Metoprolol Succinate (ER) [Toprol 25 mg PO DAILY 08/30/19 02/03/23 History XL] Sertraline [Zoloft] 25 mg PO HS 03/04/21 02/03/23 History metFORMIN HCL ER [Glucophage XR] 500 mg PO PC-SUPPER 03/04/21 02/03/23 History sitaGLIPtin PHOSPHATE [Januvia] 100 mg PO DAILY 03/04/21 02/03/23 History Ascorbic Acid [Vitamin C] 500 mg PO DAILY 02/03/23 02/03/23 History Cephalexin [Keflex] 500 mg PO QID 02/03/23 02/03/23 History Cholecalciferol [Vitamin D3 (25 50 mcg PO DAILY 02/03/23 02/03/23 History Mcg = 1000 Iu)] Dapsone 1 applic TOPICAL DAILY 02/03/23 02/03/23 History Ezetimibe [Zetia] 10 mg PO HS 02/03/23 02/03/23 History Progesterone, Micronized 100 mg PO HS 02/03/23 02/03/23 History [Progesterone] Rosuvastatin Calcium 5 mg PO DAILY 02/03/23 02/03/23 History Spironolactone 50 mg PO PC-BID 02/03/23 02/03/23 History Tretinoin [Tretinoin 0.025%] 1 applic TOPICAL TUFR 02/03/23 02/03/23 History Turmeric Root Extract [Turmeric] 500 mg PO DAILY 02/03/23 02/03/23 History Ubidecarenone [Coenzyme Q10] 100 mg PO DAILY 02/03/23 02/03/23 History Vitamin B Complex 1 cap PO DAILY 02/03/23 02/03/23 History Vitamin E (Dl,Tocopheryl Acet) 400 unit PO DAILY 02/03/23 02/03/23 History [Vitamin E (400 Iu = 180 mg)] Zinc Gluconate [Zinc] 50 mg PO DAILY 02/03/23 02/03/23 History buPROPion XL [Wellbutrin XL] 150 mg PO DAILY 02/03/23 02/03/23 History Allergies Allergy/AdvReac Type Severity Reaction Status Date / Time No Known Allergies Allergy Verified 02/03/23 14:41 Physical Exam Vitals: Vital Signs Temp Pulse Pulse Resp BP BP Pulse Ox 02/04/23 08:04 97 02/04/23 07:23 98 F 89 18 104/67 97 02/04/23 00:24 101.4 F H 125 H 16 133/71 95 02/03/23 21:19 99.2 F 110 H 16 103/62 100 02/03/23 21:00 113 H 17 128/79 99 02/03/23 20:15 114 H 20 135/79 98 02/03/23 20:00 113 H 110 H 16 136/80 99 02/03/23 19:45 112 H 18 136/80 99 02/03/23 19:40 110 H 18 136/80 99 02/03/23 19:30 106 H 20 134/77 99 02/03/23 19:21 111 H 20 134/77 89 L 02/03/23 19:19 109 H 18 134/77 100 02/03/23 17:28 101 H 18 110/72 95 02/03/23 16:05 99 19 116/77 99 02/03/23 12:44 99.4 F 131 H 18 113/81 98 Intake and Output 02/03/23 02/04/23 02/04/23 22:59 06:59 14:59 Intake Total 200 Output Total 250 Balance 200 -250 Intake: Oral 200 Output: Urine 250 Other: Weight 81.647 kg Results 02/03/23 14:00 02/03/23 14:00 Cardiac Enzymes 02/03/23 02/03/23 Range/Units 14:00 14:00 AST 32 (14-36) U/L Troponin I <0.012 (0.000-0.034) ng/mL Coagulation 02/03/23 Range/Units 14:00 PT 10.2 (9.0-12.0) sec APTT 24.9 (22.0-30.0) sec CBC 02/03/23 Range/Units 14:00 WBC 13.1 H (3.8-10.6) k/uL RBC 4.02 (3.80-5.40) m/uL Hgb 12.4 (11.4-16.0) gm/dL Hct 35.1 (34.0-46.0) % Plt Count 272 (150-450) k/uL Comprehensive Metabolic Panel 02/03/23 Range/Units 14:00 Sodium 131 L (137-145) mmol/L Potassium 4.7 (3.5-5.1) mmol/L Chloride 101 (98-107) mmol/L Carbon Dioxide 23 (22-30) mmol/L BUN 18 H (7-17) mg/dL Creatinine 0.72 (0.52-1.04) mg/dL Glucose 132 H (74-99) mg/dL Calcium 8.7 (8.4-10.2) mg/dL AST 32 (14-36) U/L ALT 20 (4-34) U/L Alkaline Phosphatase 44 (38-126) U/L Total Protein 6.8 (6.3-8.2) g/dL Albumin 3.8 (3.5-5.0) g/dL Current Medications Generic Name Dose Route Start Last Admin Trade Name Freq PRN Reason Stop Dose Admin Acetaminophen 650 mg 02/03/23 18:37 02/04/23 04:45 Acetaminophen Tab 325 Mg Tab PO 650 mg Q6HR PRN Administration Mild Pain or Fever > 100.5 Atorvastatin Calcium 10 mg 02/04/23 09:00 Atorvastatin 10 Mg Tab PO DAILY [facility] Bupropion HCl 150 mg 02/04/23 09:00 Bupropion Xl 150 Mg Tab.Er.24h PO DAILY [facility] Ezetimibe 10 mg 02/04/23 21:00 Ezetimibe 10 Mg Tab PO HS [facility] Enoxaparin Sodium 40 mg 02/04/23 09:00 Enoxaparin 40 Mg/0.4 Ml Syringe SQ DAILY [facility] Hydromorphone HCl 1 mg 02/03/23 18:37 Hydromorphone 1 Mg/Ml 1 Ml Syringe IVP Q3HR PRN Severe Pain (Scale 7 to 10) Sodium Chloride 1,000 mls @ 130 mls/hr 02/03/23 18:45 02/04/23 05:32 Saline 0.9% IV Not Given .Q7H42M [facility] Ceftriaxone Sodium 1 gm/ 50 mls @ 100 mls/hr 02/04/23 09:00 Sodium Chloride IVPB Q24HR [facility] Protocol Insulin Aspart 0 unit 02/04/23 07:30 Insulin Aspart (Novolog) 100 Unit/Ml Vial SQ ACHS [facility] Protocol Lisinopril 20 mg 02/04/23 09:00 Lisinopril 20 Mg Tab PO DAILY [facility] Metoprolol Succinate 25 mg 02/04/23 09:00 Metoprolol Succinate (Er) 25 Mg Tab.Er.24h PO DAILY [facility] Morphine Sulfate 4 mg 02/03/23 18:30 02/03/23 22:42 Morphine Sulfate 4 Mg/Ml Syringe IV 4 mg Q4HR PRN Administration Severe Pain (Scale 7 to 10) Naloxone HCl 0.2 mg 02/03/23 18:37 Naloxone 0.4 Mg/Ml 1 Ml Vial IV Q2M PRN Opioid Reversal Ondansetron HCl 4 mg 02/03/23 18:37 Ondansetron 4 Mg/2 Ml Vial IVP Q8HR PRN Nausea And Vomiting Pantoprazole Sodium 40 mg 02/04/23 09:00 Pantoprazole 40 Mg/10 Ml Vial IV DAILY [facility] Sertraline HCl 25 mg 02/04/23 21:00 Sertraline 25 Mg Tab PO HS [facility] Intake and Output 02/03/23 02/04/23 02/04/23 22:59 06:59 14:59 Intake Total 200 Output Total 250 Balance 200 -250 Intake: Oral 200 Output: Urine 250 Other: Weight 81.647 kg 02/03/23 14:00 02/03/23 14:00
[2023-02-04] MEDS: INSULIN ASPART (NovoLOG) 100 UNIT/ML VIAL SQ SCH ×4 (10:07→21:55)
[2023-02-04] MEDS: ATORVASTATIN 10 MG TAB PO SCH (10:08)
[2023-02-04] MEDS: PANTOPRAZOLE 40 MG/10 ML VIAL IV SCH (10:08)
[2023-02-04] MEDS: lisinopriL 20 MG TAB PO SCH (10:08)
[2023-02-04] MEDS: buPROPion XL 150 MG TAB.ER.24H PO SCH (10:08)
[2023-02-04] MEDS: ENOXAPARIN 40 MG/0.4 ML SYRINGE SQ SCH (10:08)
[2023-02-04] MEDS: METOPROLOL SUCCINATE (ER) 25 MG TAB.ER.24H PO SCH (10:08)
[2023-02-04 11:42] LABS: African American GFR (CKD) 96.2 (60.0-200.0); Albumin 3.5 g/dL (3.8-4.9); Albumin/Globulin Ratio 1.52 (1.60-3.17); Anion Gap 9.1 mmol/L (10.00-18.00); BUN/Creat Ratio 13.25 Ratio (12.00-20.00); Blood Urea Nitrogen 10.6 mg/dL (9.0-27.0); Calcium 8.5 mg/dL (8.7-10.3); Carbon Dioxide 21.9 mmol/L (20.0-27.5); Globulin 2.3 g/dL (1.6-3.3); Magnesium 2.5 mg/dL (1.5-2.4); Phosphorus 2.3 mg/dL (2.4-5.1); Potassium 4.2 mmol/L (3.5-5.5); Total Bilirubin 0.4 mg/dL (0.30-1.20); Total Protein 5.8 g/dL (6.2-8.2)
[2023-02-04] MEDS: MORPHINE SULFATE 4 MG/ML SYRINGE IV PRN ×2 (11:46→21:57)
[2023-02-04 12:00] LABS: Glucose,Whole Blood 118 mg/dL (70-110)
[2023-02-04 12:19] LABS: Basophils # (A) 0.03 X 10*3/uL (0.00-0.10); Basophils % (A) 0.3 %; Eosinophils # (A) 0.01 X 10*3/uL (0.04-0.35); Eosinophils % (A) 0.1 %; HCT 31.5 % (37.2-46.3); HGB 10.8 g/dL (12.0-15.0); Immature Grans, Automated 0.9 %; Lymphocytes # (A) 0.79 X 10*3/uL (0.90-5.00); Lymphocytes % (A) 8.7 %; MCH 31.3 pg (27.0-32.0); MCHC 34.3 g/dL (32.0-37.0); MCV 91.3 fL (80.0-97.0); Mean Platelet Volume 9.5 fL (9.5-12.2); Monocytes # (A) 0.98 X 10*3/uL (0.20-1.00); Monocytes % (A) 10.8 %; NRBC Per 100 WBC 0 /100 WBCS (0.0-0.0); Neutrophils # (A) 7.15 X 10*3/uL (1.80-7.70); Neutrophils % (A) 79.2 %; Platelet Count 216 X 10*3/uL (140-440); RBC 3.45 X 10*6/uL (4.10-5.20); RDW 13.6 % (11.5-14.5); WBC 9.04 X 10*3/uL (4.50-10.00)
--- NOTE | 2023-02-04 12:42 | CA ---
Transthoracic Echo Report Name: Deborah Currie Age: 53 Gender: F : 1970 Exam Date: 02/04/2023 08:34 Exam Location: [place] [facility] Ht (in): 65 Wt (lb): 180 Ordering Physician: Babatunde Olvera DO Attending/Referring Phys: [id number], Wade [employer] Manuel Carrero RDCS Procedure CPT: Indications: chf Cardiac Hx: HTN; CP; High Chol; SOB; DM; Technical Quality: Fair Contrast 1: Total Dose (mL): Contrast 2: Total Dose (mL): MEASUREMENTS (Male / Female) Normal Values 2D ECHO LV Diastolic Diameter PLAX 3.9 cm 4.2 - 5.9 / 3.9 - 5.3 cm LV Systolic Diameter PLAX 2.8 cm LV Fractional Shortening PLAX 27.5 % IVS Diastolic Thickness 1.2 cm 0.6 - 1.0 / 0.6 - 0.9 cm IVS Systolic Thickness 1.8 cm LVPW Diastolic Thickness 1.3 cm 0.6 - 1.0 / 0.6 - 0.9 cm LVPW Systolic Thickness 1.4 cm LV Relative Wall Thickness 0.6 RV Internal Dim ED PLAX 3.2 cm LVOT Diameter 1.9 cm LA Systolic Diameter LX 2.7 cm 3.0 - 4.0 / 2.7 - 3.8 cm LV Diastolic Volume MOD BP 77.9 cm??? 67 - 155 / 56 - 104 cm??? LV Systolic Volume MOD BP 31.1 cm??? 22 - 58 / 19 - 49 cm??? LV Ejection Fraction MOD BP 60.0 % >= 55 % LV Stroke Volume MOD BP 46.8 cm??? LV Diastolic Volume MOD 4C 70.3 cm??? LV Systolic Volume MOD 4C 25.0 cm??? LV Ejection Fraction MOD 4C 64.4 % LV Stroke Volume MOD 4C 45.3 cm??? LV Diastolic Length 4C 7.9 cm LV Systolic Length 4C 6.2 cm LV Diastolic Volume MOD 2C 86.4 cm??? LV Systolic Volume MOD 2C 35.8 cm??? LV Ejection Fraction MOD 2C 58.5 % LV Stroke Volume MOD 2C 50.6 cm??? LV Diastolic Length 2C 7.9 cm LV Systolic Length 2C 6.8 cm Ascending Aorta Diameter 2.1 cm M-MODE Aortic Root Diameter MM 2.8 cm LA Systolic Diameter MM 4.1 cm LA Ao Ratio MM 1.5 AV Cusp Separation MM 1.5 cm DOPPLER AV Peak Velocity 157.7 cm/s AV Peak Gradient 10.0 mmHg MV Peak Velocity 70.9 cm/s MV Peak Gradient 2.0 mmHg MV Mean Velocity 51.7 cm/s MV Mean Gradient 1.2 mmHg MV Velocity Time Integral 20.7 cm MV Deceleration Summers 158.2 cm/s??? MR Peak Velocity 156.0 cm/s MR Peak Gradient 9.7 mmHg Mitral E Point Velocity 52.7 cm/s Mitral A Point Velocity 69.2 cm/s Mitral E to A Ratio 0.8 MV Deceleration Time 332.8 ms MV E' Velocity 8.3 cm/s Mitral E to MV E' Ratio 6.4 TR Peak Velocity 263.8 cm/s TR Peak Gradient 27.8 mmHg Right Ventricular Systolic Press 37.8 mmHg PV Peak Velocity 99.9 cm/s PV Peak Gradient 4.0 mmHg FINDINGS Left Ventricle Left ventricular ejection fraction is estimated at _55-60%. Borderline left ventricular hypertrophy. Grade 1 diastolic dysfunction. Normal basal systolic function. Right Ventricle Normal right ventricular size and function. RVSP_ 38 mm Hg. Right Atrium Normal right atrial size. Left Atrium Normal left atrial size. Mitral Valve Mitral valve thickened. No mitral stenosis. Mild mitral regurgitation. Aortic Valve Trileaflet aortic valve. No aortic valve stenosis or regurgitation. Tricuspid Valve Structurally normal tricuspid valve. [id number] tricuspid regurgitation. Pulmonic Valve Pulmonic valve not well visualized. Trace pulmonic regurgitation. Pericardium Normal pericardium. No pericardial effusion. Aorta Normal size aortic root and proximal ascending aorta. CONCLUSIONS Left ventricular ejection fraction 55-60% Borderline increased left ventricular wall thickness RVSP 38 Mild mitral regurgitation Mild to moderate tricuspid regurgitation Previewed by: Dr. Phuc Buckner DO (Electronically Signed) Final Date: 04 Feb 2023 12:41
--- NOTE | 2023-02-04 13:28 | P.PN ---
Subjective Progress Note Date: 02/04/23 Hospital Course: 53-year-old female with history of hypertension, diabetes, dyslipidemia presenting with fatigue, generalized weakness, decreased appetite. Also having urinary symptoms. She was febrile up to 11.4, tachycardic to 125, also requiring 3 L of nasal cannula. WBC count was 13.1, hemoglobin 12.4, sodium 131, creatinine 0.7 to, magnesium 1.5, troponin negative, UA positive for leukocyte esterase and nitrates. Chest x-ray showed bibasilar subsegmental consolidation likely atelectasis. EKG showed sinus tachycardia. PE, pulmonary vascular congestion, left thyroid nodule. Abdomen: CTA showed likely left, nephritis, no obstructive calculus, and cholelithiasis. Patient admitted for sepsis secondary to pyelonephritis and possible CHF exacerbation. Cardiology was consulted. Subjective: Seen and examined at bedside. No acute events overnight. Claims that her br eathing is improved. She denies any chest pain. She currently has a urinary catheter in place. Pertinent positives and negatives as discussed above, a complete review of systems was performed and all other systems are negative. Vitals Signs Reviewed. General: nontoxic, no distress, appears at stated age Derm: warm, dry Head: atraumatic, normocephalic, symmetric Eyes: EOMI, no lid lag, anicteric sclera Mouth: no lip lesion, mucus membranes moist Cardiovascular: S1S2 reg, no murmur Lungs: CTA bilateral, bibasilar rales , no accessory muscle use, supplemental oxygen Abdominal: soft, nontender to palpation, no guarding, no appreciable organomegaly Ext: no gross muscle atrophy, no edema, no contractures Neuro: CN II-XI grossly intact, no focal neuro deficits Psych: Alert, oriented, appropriate affect Data Reviewed Today: Pertinent Labs: WBC 9.04, hemoglobin 10.8, sodium 132, creatinine 0.8, magnesium 2.5 Imaging: Echocardiogram report reviewed, shows LVEF 55-60%, RVSP 38, mild mitral regurgitation, mild to moderate tricuspid regurgitation Assessment and Plan: Active: Sepsis secondary to pyelonephritis Acute hypoxic respiratory failure Pulmonary vascular congestion Hypertension Diabetes Left thyroid nodule Cholelithiasis -Blood cultures pending -Maintain IV ceftriaxone 1 g every 24 hours -Continue to wean oxygen -Cardiology consulted, no acute reviewed, unlikely to be CHF -Discontinued IV fluids -Chest x-ray independently interpreted, no significant vascular congestion -Pain control with oral Tylenol, IV morphine as needed -Sliding scale insulin -Cardiology recommending holding Aldactone -Needs outpatient follow-up for thyroid nodule cholelithiasis Resolved: Leukocytosis Hypomagnesemia Chronic: Dyslipidemia DVT ppx: Lovenox Code status: Full code Anticipated discharge place: Pending clinical course Anticipated discharge time: Including clinical course Objective - Vital Signs Vital signs: Vital Signs Temp 98.8 F 02/04/23 12:27 Pulse 85 02/04/23 12:27 Resp 18 02/04/23 12:27 BP 91/56 02/04/23 12:27 Pulse Ox 97 02/04/23 12:27 FiO2 Intake & Output 02/03/23 02/04/23 02/04/23 18:59 06:59 18:59 Intake Total 200 Output Total 250 Balance -50 Weight 81.647 kg 81.647 kg Intake: Oral 200 Output: Urine 250 Other: Voiding Method Toilet - Labs CBC & Chem 7: 02/04/23 06:05 02/04/23 06:05 Labs: Abnormal Lab Results - Last 24 Hours (Table) 02/03/23 02/03/23 02/03/23 Range/Units 14:00 14:00 16:08 WBC 13.1 H (3.8-10.6) k/uL RBC (4.10-5.20) X 10*6/uL Hgb (12.0-15.0) g/dL Hct (37.2-46.3) % Immature Gran # (0.00-0.04) X 10*3/uL Neutrophils # 11.5 H (1.3-7.7) k/uL Lymphocytes # 0.6 L (1.0-4.8) k/uL Eosinophils # (0.04-0.35) X 10*3/uL Sodium 131 L (137-145) mmol/L Anion Gap (10.00-18.00) mmol/L BUN 18 H (7-17) mg/dL Glucose 132 H (74-99) mg/dL POC Glucose (mg/dL) (70-110) mg/dL Calcium (8.7-10.3) mg/dL Phosphorus (2.4-5.1) mg/dL Magnesium 1.5 L (1.6-2.3) mg/dL AST (13-35) U/L Total Protein (6.2-8.2) g/dL Albumin (3.8-4.9) g/dL Albumin/Globulin Ratio (1.60-3.17) g/dL Urine Appearance Cloudy H (Clear) Urine Protein 1+ H (Negative) Urine Ketones 2+ H (Negative) Urine Blood Moderate H (Negative) Urine Nitrite Positive H (Negative) Ur Leukocyte Esterase Large H (Negative) Urine RBC 14 H (0-5) /hpf Urine WBC >182 H (0-5) /hpf Urine Bacteria Rare H (None) /hpf Urine Mucus Rare H (None) /hpf 02/04/23 02/04/23 02/04/23 Range/Units 06:05 06:05 07:01 WBC (3.8-10.6) k/uL RBC 3.45 L (4.10-5.20) X 10*6/uL Hgb 10.8 L (12.0-15.0) g/dL Hct 31.5 L (37.2-46.3) % Immature Gran # 0.08 H (0.00-0.04) X 10*3/uL Neutrophils # (1.3-7.7) k/uL Lymphocytes # 0.79 L (1.0-4.8) k/uL Eosinophils # 0.01 L (0.04-0.35) X 10*3/uL Sodium 132 L (137-145) mmol/L Anion Gap 9.10 L (10.00-18.00) mmol/L BUN (7-17) mg/dL Glucose 177 H (74-99) mg/dL POC Glucose (mg/dL) 176 H (70-110) mg/dL Calcium 8.5 L (8.7-10.3) mg/dL Phosphorus 2.3 L (2.4-5.1) mg/dL Magnesium 2.5 H (1.6-2.3) mg/dL AST 10 L (13-35) U/L Total Protein 5.8 L (6.2-8.2) g/dL Albumin 3.5 L (3.8-4.9) g/dL Albumin/Globulin Ratio 1.52 L (1.60-3.17) g/dL Urine Appearance (Clear) Urine Protein (Negative) Urine Ketones (Negative) Urine Blood (Negative) Urine Nitrite (Negative) Ur Leukocyte Esterase (Negative) Urine RBC (0-5) /hpf Urine WBC (0-5) /hpf Urine Bacteria (None) /hpf Urine Mucus (None) /hpf 02/04/23 Range/Units 11:59 WBC (3.8-10.6) k/uL RBC (4.10-5.20) X 10*6/uL Hgb (12.0-15.0) g/dL Hct (37.2-46.3) % Immature Gran # (0.00-0.04) X 10*3/uL Neutrophils # (1.3-7.7) k/uL Lymphocytes # (1.0-4.8) k/uL Eosinophils # (0.04-0.35) X 10*3/uL Sodium (137-145) mmol/L Anion Gap (10.00-18.00) mmol/L BUN (7-17) mg/dL Glucose (74-99) mg/dL POC Glucose (mg/dL) 118 H (70-110) mg/dL Calcium (8.7-10.3) mg/dL Phosphorus (2.4-5.1) mg/dL Magnesium (1.6-2.3) mg/dL AST (13-35) U/L Total Protein (6.2-8.2) g/dL Albumin (3.8-4.9) g/dL Albumin/Globulin Ratio (1.60-3.17) g/dL Urine Appearance (Clear) Urine Protein (Negative) Urine Ketones (Negative) Urine Blood (Negative) Urine Nitrite (Negative) Ur Leukocyte Esterase (Negative) Urine RBC (0-5) /hpf Urine WBC (0-5) /hpf Urine Bacteria (None) /hpf Urine Mucus (None) /hpf
[2023-02-04 16:58] LABS: Glucose,Whole Blood 172 mg/dL (70-110)
[2023-02-04 20:36] LABS: Glucose,Whole Blood 186 mg/dL (70-110)
[2023-02-04] MEDS: EZETIMIBE 10 MG TAB PO SCH (21:54)
[2023-02-04] MEDS: SERTRALINE 25 MG TAB PO SCH (21:54)
[2023-02-05 07:21] LABS: Glucose,Whole Blood 126 mg/dL (70-110)
[2023-02-05] MEDS: INSULIN ASPART (NovoLOG) 100 UNIT/ML VIAL SQ SCH ×4 (07:28→21:30)
[2023-02-05] MEDS: buPROPion XL 150 MG TAB.ER.24H PO SCH (09:30)
[2023-02-05] MEDS: ATORVASTATIN 10 MG TAB PO SCH (09:30)
[2023-02-05] MEDS: CHOLECALCIFEROL 25 MCG (1000 IU) TABLET PO SCH (09:30)
[2023-02-05] MEDS: PANTOPRAZOLE 40 MG/10 ML VIAL IV SCH (09:30)
[2023-02-05] MEDS: lisinopriL 20 MG TAB PO SCH (09:30)
[2023-02-05] MEDS: ENOXAPARIN 40 MG/0.4 ML SYRINGE SQ SCH (09:30)
[2023-02-05] MEDS: ASCORBIC ACID 500 MG TAB PO SCH (09:30)
[2023-02-05] MEDS: METOPROLOL SUCCINATE (ER) 25 MG TAB.ER.24H PO SCH (09:30)
[2023-02-05 11:22] LABS: Glucose,Whole Blood 250 mg/dL (70-110)
--- NOTE | 2023-02-05 15:02 | P.PN ---
Subjective Progress Note Date: 02/05/23 Hospital Course: 53-year-old female with history of hypertension, diabetes, dyslipidemia presenting with fatigue, generalized weakness, decreased appetite. Also having urinary symptoms. She was febrile up to 11.4, tachycardic to 125, also requiring 3 L of nasal cannula. WBC count was 13.1, hemoglobin 12.4, sodium 131, creatinine 0.7 to, magnesium 1.5, troponin negative, UA positive for leukocyte esterase and nitrates. Chest x-ray showed bibasilar subsegmental consolidation likely atelectasis. EKG showed sinus tachycardia. PE, pulmonary vascular congestion, left thyroid nodule. Abdomen CT showed likely left, nephritis, no obstructive calculus, and cholelithiasis. Patient admitted for sepsis secondary to pyelonephritis and possible CHF exacerbation. Cardiology was consulted. Echocardiogram report reviewed, shows LVEF 55-60%, RVSP 38, mild mitral regurgitation, mild to moderate tricuspid regurgitation. Respiratory function improved, suspect to be CHF. Subjective: Seen and examined at bedside. No acute events overnight. Claims that her breathing is improved. She denies any chest pain. Pertinent positives and negatives as discussed above, a complete review of systems was performed and all other systems are negative. Vitals Signs Reviewed. General: nontoxic, no distress, appears at stated age Derm: warm, dry Head: atraumatic, normocephalic, symmetric Eyes: EOMI, no lid lag, anicteric sclera Mouth: no lip lesion, mucus membranes moist Cardiovascular: S1S2 reg, no murmur Lungs: CTA bilateral, bibasilar rales , no accessory muscle use, supplemental oxygen Abdominal: soft, nontender to palpation, no guarding, no appreciable organomegaly Ext: no gross muscle atrophy, no edema, no contractures Neuro: CN II-XI grossly intact, no focal neuro deficits Psych: Alert, oriented, appropriate affect Data Reviewed Today: Pertinent Labs: Blood sugars range between 126-250 Assessment and Plan: Active: Sepsis secondary to pyelonephritis Hypertension Diabetes Left thyroid nodule Cholelithiasis -Blood cultures 1/2 positive for coag negative staph, likely contaminant -Maintain IV ceftriaxone 1 g every 24 hours -Cardiology following, most likely be CHF -Pain control with oral Tylenol, IV morphine as needed -Sliding scale insulin -Cardiology recommending holding Aldactone -Needs outpatient follow-up for thyroid nodule and cholelithiasis Resolved: Leukocytosis Hypomagnesemia Acute hypoxic respiratory failure Pulmonary vascular congestion Chronic: Dyslipidemia DVT ppx: Lovenox Code status: Full code Anticipated discharge place: Home Anticipated discharge time: Likely tomorrow Objective - Vital Signs Vital signs: Vital Signs Temp 98 F 02/05/23 07:20 Pulse 75 02/05/23 11:36 Resp 20 02/05/23 11:36 BP 125/77 02/05/23 11:36 Pulse Ox 95 02/05/23 11:36 FiO2 Intake & Output 02/04/23 02/05/23 02/05/23 18:59 06:59 18:59 Intake Total 2120 120 Balance 2120 120 Intake: Intake, IV Titration 2000 Amount Sodium Chloride 0.9% 1, 1950 000 ml @ 130 mls/hr IV . Q7H42M [facility] Rx#:[id number] cefTRIAXone 1 gm In 50 Sodium Chloride 0.9% 50 ml @ 100 mls/hr IVPB Q24HR [facility] Rx#:[id number] Oral 120 120 Other: Voiding Method Toilet Toilet Toilet # Voids 2 2 - Labs CBC & Chem 7: 02/04/23 06:05 02/04/23 06:05 Labs: Abnormal Lab Results - Last 24 Hours (Table) 02/04/23 02/04/23 02/05/23 Range/Units 16:57 20:34 07:18 POC Glucose (mg/dL) 172 H 186 H 126 H (70-110) mg/dL 02/05/23 Range/Units 11:17 POC Glucose (mg/dL) 250 H (70-110) mg/dL Microbiology - Last 24 Hours (Table) 02/03/23 14:00 Blood Culture - Preliminary Blood 02/03/23 13:45 Blood Culture Gram Stain - Final Blood Blood Culture - Final Coagulase Negative Staph
[2023-02-05 17:20] LABS: Glucose,Whole Blood 112 mg/dL (70-110)
[2023-02-05 20:57] LABS: Glucose,Whole Blood 209 mg/dL (70-110)
[2023-02-05] MEDS: EZETIMIBE 10 MG TAB PO SCH (21:29)
[2023-02-05] MEDS: SERTRALINE 25 MG TAB PO SCH (21:29)
[2023-02-06] MEDS: ACETAMINOPHEN TAB 325 MG TAB PO PRN (03:02)
[2023-02-06 07:26] LABS: Glucose,Whole Blood 123 mg/dL (70-110)
[2023-02-06] MEDS: INSULIN ASPART (NovoLOG) 100 UNIT/ML VIAL SQ SCH (07:40)
[2023-02-06 07:45] VITALS: BP 107/72; PULSE 70; RESP 20; TEMP 97.3
[2023-02-06] MEDS: ATORVASTATIN 10 MG TAB PO SCH (09:35)
[2023-02-06] MEDS: ENOXAPARIN 40 MG/0.4 ML SYRINGE SQ SCH (09:35)
[2023-02-06] MEDS: lisinopriL 20 MG TAB PO SCH (09:35)
[2023-02-06] MEDS: CHOLECALCIFEROL 25 MCG (1000 IU) TABLET PO SCH (09:35)
[2023-02-06] MEDS: buPROPion XL 150 MG TAB.ER.24H PO SCH (09:35)
[2023-02-06] MEDS: METOPROLOL SUCCINATE (ER) 25 MG TAB.ER.24H PO SCH (09:36)
[2023-02-06] MEDS: PANTOPRAZOLE 40 MG/10 ML VIAL IV SCH (09:36)
[2023-02-06] MEDS: ASCORBIC ACID 500 MG TAB PO SCH (09:49)
--- NOTE | 2023-02-06 11:25 | P.DS ---
Providers Date of admission: 02/03/23 18:39 Expected date of discharge: 02/06/23 Attending physician: Santino Wing MD Primary care physician: Wan Negrete Hospital Course: Discharge Diagnosis: Sepsis secondary to pyelonephritis Hypertension Diabetes Left thyroid nodule Cholelithiasis Leukocytosis Hypomagnesemia Acute hypoxic respiratory failure Pulmonary vascular congestion Hospital Course: 53-year-old female with history of hypertension, diabetes, dyslipidemia presenting with fatigue, generalized weakness, decreased appetite. Also having urinary symptoms. She was febrile up to 11.4, tachycardic to 125, also requiri ng 3 L of nasal cannula. WBC count was 13.1, hemoglobin 12.4, sodium 131, creatinine 0.72, magnesium 1.5, troponin negative, UA positive for leukocyte esterase and nitrates. Chest x-ray showed bibasilar subsegmental consolidation likely atelectasis. EKG showed sinus tachycardia. PE, pulmonary vascular congestion, left thyroid nodule. Abdomen CT showed likely left, nephritis, no obstructive calculus, and cholelithiasis. Patient admitted for sepsis secondary to pyelonephritis and possible CHF exacerbation. Cardiology was consulted. Echocardiogram report reviewed, shows LVEF 55-60%, RVSP 38, mild mitral regurgitation, mild to moderate tricuspid regurgitation. Respiratory function improved, not suspect to be CHF. Patient symptoms improved with IV ceftriaxone. She will be discharged on oral antibiotics. 1/2 bottle was positive for coag negative staph, likely contaminant. Patient is clinically doing better. Patient seen and examined at bedside. Vital signs reviewed and stable. General: nontoxic, no distress, appears at stated age Derm: warm, dry Head: atraumatic, normocephalic, symmetric Eyes: EOMI, no lid lag, anicteric sclera Mouth: no lip lesion, mucus membranes moist Cardiovascular: S1S2 reg, no murmur Lungs: CTA bilateral, no rhonchi, no rales , no accessory muscle use Abdominal: soft, nontender to palpation, no guarding, no appreciable organomegaly Ext: no gross muscle atrophy, no edema, no contractures Neuro: CN II-XI grossly intact, no focal neuro deficits Psych: Alert, oriented, appropriate affect A total of 36 minutes of time were spent preparing this complex discharge summary. Patient was discharged on 02/06/23 at 11:11. Patient Condition at Discharge: Stable Plan - Discharge Summary New Discharge Prescriptions: New Cefdinir [Omnicef] 300 mg PO Q12HR #10 capsule Continue Enalapril [Vasotec] 20 mg PO DAILY Nitroglycerin Sl Tabs [Nitrostat] 0.4 mg SUBLINGUAL Q5M PRN #25 tab PRN Reason: Angina Metoprolol Succinate (ER) [Toprol XL] 25 mg PO DAILY Sertraline [Zoloft] 25 mg PO HS metFORMIN HCL ER [Glucophage XR] 500 mg PO PC-SUPPER buPROPion XL [Wellbutrin XL] 150 mg PO DAILY Vitamin B Complex 1 cap PO DAILY Turmeric Root Extract [Turmeric] 500 mg PO DAILY Zinc Gluconate [Zinc] 50 mg PO DAILY Ubidecarenone [Coenzyme Q10] 100 mg PO DAILY Cholecalciferol [Vitamin D3 (25 Mcg = 1000 Iu)] 50 mcg PO DAILY Ascorbic Acid [Vitamin C] 500 mg PO DAILY sitaGLIPtin PHOSPHATE [Januvia] 100 mg PO DAILY Ezetimibe [Zetia] 10 mg PO HS Dapsone 1 applic TOPICAL DAILY Rosuvastatin Calcium 5 mg PO DAILY Vitamin E (Dl,Tocopheryl Acet) [Vitamin E (400 Iu = 180 mg)] 400 unit PO DAILY Tretinoin [Tretinoin 0.025%] 1 applic TOPICAL TUFR Progesterone, Micronized [Progesterone] 100 mg PO HS Discontinued Spironolactone 50 mg PO PC-BID Cephalexin [Keflex] 500 mg PO QID Discharge Medication List Enalapril [Vasotec] 20 mg PO DAILY 08/05/18 [History] Nitroglycerin Sl Tabs [Nitrostat] 0.4 mg SUBLINGUAL Q5M PRN #25 tab 12/03/18 [Rx] Metoprolol Succinate (ER) [Toprol XL] 25 mg PO DAILY 08/30/19 [History] Sertraline [Zoloft] 25 mg PO HS 03/04/21 [History] metFORMIN HCL ER [Glucophage XR] 500 mg PO PC-SUPPER 03/04/21 [History] sitaGLIPtin PHOSPHATE [Januvia] 100 mg PO DAILY 03/04/21 [History] Ascorbic Acid [Vitamin C] 500 mg PO DAILY 02/03/23 [History] Cholecalciferol [Vitamin D3 (25 Mcg = 1000 Iu)] 50 mcg PO DAILY 02/03/23 [History] Dapsone 1 applic TOPICAL DAILY 02/03/23 [History] Ezetimibe [Zetia] 10 mg PO HS 02/03/23 [History] Progesterone, Micronized [Progesterone] 100 mg PO HS 02/03/23 [History] Rosuvastatin Calcium 5 mg PO DAILY 02/03/23 [History] Tretinoin [Tretinoin 0.025%] 1 applic TOPICAL TUFR 02/03/23 [History] Turmeric Root Extract [Turmeric] 500 mg PO DAILY 02/03/23 [History] Ubidecarenone [Coenzyme Q10] 100 mg PO DAILY 02/03/23 [History] Vitamin B Complex 1 cap PO DAILY 02/03/23 [History] Vitamin E (Dl,Tocopheryl Acet) [Vitamin E (400 Iu = 180 mg)] 400 unit PO DAILY 02/03/23 [History] Zinc Gluconate [Zinc] 50 mg PO DAILY 02/03/23 [History] buPROPion XL [Wellbutrin XL] 150 mg PO DAILY 02/03/23 [History] Cefdinir [Omnicef] 300 mg PO Q12HR #10 capsule 02/06/23 [Rx] Follow up Appointment(s)/Referral(s): Zabrina Treadwell PAC [REFERRING] - 1-2 days Patient Instructions/Handouts: Urinary Tract Infection in Women (DC) Activity/Diet/Wound Care/Special Instructions: Please see your PCP and urology for recurrent UTI. Follow up with medical Dr. 1 to 2 days Activity Limited until seen by DR. Ayala as tolerated Discharge Disposition: HOME SELF-CARE
--- NOTE | 2023-02-10 16:13 | CDI ---
Physicians Documentation Request Pt Name: Deborah Currie MR #: [id number] Payor: [facility] Unit/Bed: [id number] Adm Date: 02/03/2023 6:39:00 PM Reviewer: Radha Rodriguez Query Date: 02/10/23 Acuity Specificity By submitting this query, we are merely seeking further clarification of documentation to accurately reflect all conditions that you are monitoring, evaluating, treating or that extend the hospitalization or utilize additional resources of care. Please utilize your independent clinical judgment when addressing the question(s) below. Dear Doctor Dwight Darling, The patients Clinical Indicators include: Gram Positive Cocci Urinary symptoms & Low back pain There is documentation of Pyelonephritis H&P 02/03 Assessment; Consult 02/04 History of present illness & Assessment; PN 02/04 & 02/05 Hospital Course & Assessment; DCS 02/06 Discharge Diagnosis & Hospital Additional clarification of the acuity of the condition is requested. History/Risk Factors: Sepsis, Hypoxia, Atelectasis, HTN & DM Treatment: 02/03 H&P follow upcultures, iv antibiotics with rocephine 1 gm daily, fevercontrol with tylenol, paincontrol with morphine, IVFhydration with normal saline 130 cc per hour 02/04 Progress Note: Blood cultures pending, -Maintain IV ceftriaxone 1 g every 24 hour 02/05 Progress Note: Blood cultures 1/2 positive for coag negativestaph, likely contaminant,-Maintain IV ceftriaxone 1 g every 24 hours Can you please clarify the acuity of the Pyelonephritis? [ x ] Acute [ ] Sub-acute [ ] Chronic [ ] History of [ ] Other, please specify [ ] Unable to determine PLEASE DOCUMENT ANY ADDITIONAL DIAGNOSES AND/OR SPECIFICITY IN THE PROGRESS NOTES AND/OR DISCHARGE SUMMARY. MTDD
== END 2023-02-06 13:00 | disposition home or self-care (01) | DRG 871 ==
LOC: EC 12:28 → 5NMEDONC 18:39
PROVIDERS: ADMIT Internal Medicine; ATTEND Internal Medicine
DX: A41.9 Sepsis, unspecified organism (principal); J96.01 Acute respiratory failure with hypoxia; N10 Acute pyelonephritis; J98.11 Atelectasis; E11.40 Type 2 diabetes mellitus with diabetic neuropathy, unspecified; Z20.822 Contact with and (suspected) exposure to COVID-19; E04.1 Nontoxic single thyroid nodule; F32.A Depression, unspecified; I08.1 Rheumatic disorders of both mitral and tricuspid valves; I10 Essential (primary) hypertension; M79.89 Other specified soft tissue disorders; I87.2 Venous insufficiency (chronic) (peripheral); E83.42 Hypomagnesemia; E78.5 Hyperlipidemia, unspecified; G47.30 Sleep apnea, unspecified; K21.9 Gastro-esophageal reflux disease without esophagitis; M26.609 Unspecified temporomandibular joint disorder, unspecified side; F41.9 Anxiety disorder, unspecified; K80.20 Calculus of gallbladder without cholecystitis without obstruction; I25.10 Atherosclerotic heart disease of native coronary artery without angina pectoris; Z79.84 Long term (current) use of oral hypoglycemic drugs; Z79.899 Other long term (current) drug therapy; Z79.3 Long term (current) use of hormonal contraceptives
CPT/HCPCS: 36415; 71046; 71275; 74177; 80053; 81001; 83605; 83735; 83880; 84100; 84484; 85025; 85379; 85610; 85730; 87636; 93005; 93306; 94760

== ENCOUNTER → 2023-03-09 | Outpatient (CLI) | payer BC ==
--- NOTE | 2023-03-09 14:42 | MM ---
Reason for Exam: Clinical finding. Last mammogram was performed 1 year(s) and 1 month(s) ago. Patient History: Menarche at age 8. First Full-Term at age 29. Late child-bearing (after 30). Right ovary removed at age 43. Hysterectomy at age 43. Postmenopausal. Currently using Progesterone, starting at age 50. Paternal grandmother had breast cancer, age 70. Risk Values: Imelda 5 year model risk: 1.8%. NCI Lifetime model risk: 12.2%. Prior Study Comparison: 06/18/2017 Screening Mammogram, [facility]. 06/28/2018 Bilateral Screening Mammogram, [facility]. 08/11/2019 Bilateral Screening Mammogram, [facility]. 08/28/2019 Right Diagnostic Mammogram, [facility]. 05/15/2020 Right Diagnostic Mammogram, [facility]. 02/09/2022 Bilateral MG 3D screening mammo w/cad, [facility]. 11/13/2022 Left US breast limited LT, [facility]. Tissue Density: The breast tissue is heterogeneously dense. This may lower the sensitivity of mammography. Findings: Analyzed By CAD. No new suspicious masses in either breast. Stable chronic nodularity within the left breast. Benign-appearing calcifications within both breasts. No suspicious group of calcifications within either breast. Overall Assessment: Incomplete: need additional imaging evaluation, BI-RAD 0 Management: Diagnostic Breast Ultrasound of the left breast. A clinical breast exam by your physician is recommended on an annual basis and results should be correlated with mammographic findings. This exam should not preclude additional follow-up of suspicious palpable abnormalities. Results were given to the patient verbally at the time of exam. Note on Imelda scores and lifetime risk: 1. A Imelda score greater than 3% is considered moderate risk. If this is the case, consider specialist referral to assess eligibility for a risk reducing agent. If overall lifetime risk for the development of breast cancer is 20% or higher, the patient may qualify for future screening with alternating mammogram and breast MRI. Electronically signed and approved by: Kodi Jain D.O.
--- NOTE | 2023-03-09 15:28 | USB ---
Reason for Exam: Follow-up at short interval from prior study. Patient History: Menarche at age 8. First Full-Term at age 29. Late child-bearing (after 30). Right ovary removed at age 43. Hysterectomy at age 43. Postmenopausal. Currently using Progesterone, starting at age 50. Paternal grandmother had breast cancer, age 70. Risk Values: Imelda 5 year model risk: 1.8%. NCI Lifetime model risk: 12.2%. Technique: Method: Targeted. Prior Study Comparison: 08/28/2019 Right Diagnostic Mammogram, [facility]. 05/15/2020 Right Diagnostic Mammogram, [facility]. 02/09/2022 Bilateral MG 3D screening mammo w/cad, [facility]. Findings: The lower inner quadrant of the left breast, the axilla of the left breast and the retroareolar of the left breast were scanned. Targeted ultrasound of the left breast at 6-9 o'clock capacious region of prior infection was performed. Additional evaluation of the nipple and axilla was performed. Resolution of previously demonstrated heterogenous hypoechoic region within the left breast tissue. There is a benign-appearing dilated duct versus small seroma in this region now demonstrated.Targeted ultrasound of the left breast at 6-9 o'clock capacious region of prior infection was performed. Additional evaluation of the nipple and axilla was performed. Resolution of previously demonstrated heterogenous hypoechoic region within the left breast tissue. There is a benign-appearing dilated duct versus small seroma in this region now demonstrated. No pathologic lymphadenopathy. Overall Assessment: Benign, BI-RAD 2 Management: Screening Mammogram of both breasts in 1 year. A clinical breast exam by your physician is recommended on an annual basis and results should be correlated with mammographic findings. This exam should not preclude additional follow-up of suspicious palpable abnormalities. Results were given to the patient verbally at the time of exam. Electronically signed and approved by: Kodi Jain D.O.
== END ==
LOC: RADMAMWWP 14:16
PROVIDERS: ATTEND Family Medicine
DX: N63.24 Unspecified lump in the left breast, lower inner quadrant (principal); Z78.0 Asymptomatic menopausal state; Z80.3 Family history of malignant neoplasm of breast
CPT/HCPCS: 77062; 77066

== ENCOUNTER → 2024-03-10 | Outpatient (CLI) | payer BC ==
--- NOTE | 2024-03-14 16:38 | MM ---
Reason for Exam: Screening (asymptomatic). Last screening mammogram was performed 12 month(s) ago. Patient History: Menarche at age 8. First Full-Term at age 29. Late child-bearing (after 30). Right ovary removed at age 43. Hysterectomy at age 43. Postmenopausal. Patient has history of breast feeding. Currently using Progesterone, starting at age 50. Paternal grandmother had breast cancer, age 70. Risk Values: Imelda 5 year model risk: 1.9%. NCI Lifetime model risk: 11.9%. Prior Study Comparison: 05/15/2020 Right Diagnostic Mammogram, [facility]. 02/09/2022 Bilateral MG 3D screening mammo w/cad, [facility]. 03/09/2023 Bilateral MG 3D diag mammo w/cad [facility], [facility]. Tissue Density: The breasts are heterogeneously dense, which may obscure small masses. Findings: Analyzed By CAD. The pattern is symmetrical. Pattern appears stable. Multiple benign-appearing scattered calcifications are present bilaterally. No suspicious groups of microcalcifications, spiculated or lobular masses, architectural distortion or other secondary signs of malignancy are mammographically apparent. Overall Assessment: Benign, BI-RAD 2 Management: Screening Mammogram of both breasts in 1 year. A negative mammogram report should not preclude additional follow up of suspicious palpable abnormalities. Patient should continue monthly self breast exam. A clinical breast exam by your physician is recommended on an annual basis and results should be correlated with mammographic findings. Note on Imelda scores and lifetime risk: 1. A Imelda score greater than 3% is considered moderate risk. If this is the case, consider specialist referral to assess eligibility for a risk reducing agent. 2. If overall lifetime risk for the development of breast cancer is 20% or higher, the patient may qualify for future screening with alternating mammogram and breast MRI. Electronically signed and approved by: Maury Moser D.O. Radiologis
== END | disposition home or self-care (01) ==
LOC: RADMAMWWP 10:39
PROVIDERS: ATTEND Family Medicine
DX: Z12.31 Encounter for screening mammogram for malignant neoplasm of breast (principal); Z80.3 Family history of malignant neoplasm of breast; Z78.0 Asymptomatic menopausal state
CPT/HCPCS: 77063; 77067

== ENCOUNTER → 2025-04-04 | Outpatient (CLI) | payer BC ==
--- NOTE | 2025-04-05 06:31 | MM ---
Reason for Exam: Screening (asymptomatic). Last mammogram was performed 1 year(s) and 1 month(s) ago. Patient History: Menarche at age 8. First Full-Term at age 29. Late child-bearing (after 28). Right ovary removed at age 43. Hysterectomy at age 43. Postmenopausal. Patient has history of breast feeding. Currently using Progesterone, starting at age 50. Paternal grandmother had breast cancer, age 70. Risk Values: Imelda 5 year model risk: 1.9%. NCI Lifetime model risk: 11.7%. Prior Study Comparison: 02/09/2022 Bilateral MG 3D screening mammo w/cad, [facility]. 03/09/2023 Bilateral MG 3D diag mammo w/cad F[facility], [facility]. 03/10/2024 Bilateral MG 3D screening mammo w/cad, [facility]. Tissue Density: The breasts are heterogeneously dense, which may obscure small masses. Findings: Analyzed By CAD. There are small benign-appearing round calcifications redemonstrated scattered throughout the bilateral breasts. There is no suspicious group of microcalcifications or new suspicious mass in either breast. Overall Assessment: Benign, BI-RAD 2 Management: Screening Mammogram of both breasts in 1 year. Some advise annual bilateral breast ultrasound surveillance in patients with background dense tissue. Patient should continue monthly self-breast exams. A clinical breast exam by your physician is recommended on an annual basis. This exam should not preclude additional follow-up of suspicious palpable abnormalities. Note on Imelda scores and lifetime risk: 1. A Imelda score greater than 3% is considered moderate risk. If this is the case, consider specialist referral to assess eligibility for a risk reducing agent. 2. If overall lifetime risk for the development of breast cancer is 20% or higher, the patient may qualify for future screening with alternating mammogram and breast MRI. [facility], , 04/05/2025 6:28 AM. Electronically signed and approved by: Daniel Sanchez M.D.
== END | disposition home or self-care (01) ==
LOC: RADMAMWWP 16:14
PROVIDERS: ATTEND Family Medicine
DX: Z12.31 Encounter for screening mammogram for malignant neoplasm of breast (principal); R92.333 Mammographic heterogeneous density, bilateral breasts; Z78.0 Asymptomatic menopausal state; Z80.3 Family history of malignant neoplasm of breast
CPT/HCPCS: 77063; 77067